=== PATIENT | male | born 1950 | race Caucasian/White ===

== ENCOUNTER 2019-12-28 09:18 | Outpatient (REF) | payer MEDICARE, OTHER, SELFPAY ==
[2019-12-28 10:55] LABS: MANUAL DIFF FLAG NO
[2019-12-28 11:01] LABS: Basophils Absolute Auto 0.1 X10*3/uL (0.0-0.2); Basophils Percent Auto 1.1 % (0-2); Eosinophils Absolute Auto 0.3 X10*3/uL (0.0-0.4); Eosinophils Percent Auto 4.5 % (0-4); Hematocrit 38.8 % (42-52); Hemoglobin 12.7 g/dl (14.0-18.0); Imm Gran Abs Auto 0.02 X10*3/uL (0.00-0.03); Imm Gran Pct Auto 0.3 % (0.0-0.4); Lymphocytes Absolute Auto 1.9 X10*3/uL (1.2-4.9); Lymphocytes Percent Auto 30.9 % (20-40); Mean Corpuscular HGB Conc 32.7 g/dl (31.0-36.0); Mean Corpuscular Hemoglobin 30.3 pg (27.0-33.0); Mean Corpuscular Volume 92.6 fL (80-98); Mean Platelet Volume 10.1 fL (9.4-12.4); Monocytes Absolute Auto 0.7 X10*3/uL (0.1-1.2); Monocytes Percent Auto 10.5 % (2-11); Neutrophils Absolute Auto 3.3 X10*3/uL (2.0-8.3); Neutrophils Percent Auto 52.7 % (45-73); Platelet Count 291 X10*3/uL (160-400); Red Blood Count 4.19 X10*6/uL (4.60-5.80); Red Cell Distribution Width 13.1 % (11.0-16.0); White Blood Count 6.2 X10*3/uL (4.8-10.8)
[2019-12-28 14:39] LABS: Albumin Level 4.3 g/dL (3.5-5.0); Anion Gap 13 (12-20); Blood Urea Nitrogen 16 mg/dL (9-16); Calcium 8.8 mg/dL (8.4-10.2); Carbon Dioxide 30 mmol/L (22-29); Chloride 99 mmol/L (96-108); Estimated Glomerular Filt Rate > 60; Magnesium 1.6 mg/dL (1.6-2.6); Phosphorus 4.2 mg/dL (2.7-4.5); Potassium 4.8 mmol/l (3.3-5.1); Sodium 137 mmol/L (135-145)
[2019-12-28 15:14] LABS: Renal w Reflex Lab Use Only Order verified
== END 2019-12-28 09:19 | disposition home or self-care (01) ==
LOC: HO.10HDL 09:18
PROVIDERS: Visit Provider Internal Medicine Nephrology
DX: I10 Essential (primary) hypertension (principal); E87.1 Hypo-osmolality and hyponatremia
CPT/HCPCS: 36415; 80051; 82040; 82310; 82565; 83735; 84100; 84520; 85025

== ENCOUNTER 2019-12-30 15:31 | Outpatient (REF) | payer MEDICARE, OTHER, SELFPAY | END 2019-12-30 15:32 | disposition home or self-care (01) | LOC: HO.LAB 15:31 | PROVIDERS: PCP Internal Medicine; Visit Provider Internal Medicine Nephrology | DX: I10 Essential (primary) hypertension (principal); E87.1 Hypo-osmolality and hyponatremia | CPT/HCPCS: 82533 ==

== ENCOUNTER → 2020-03-09 07:40 | Outpatient (BNVA) | payer MEDICARE, OTHER, SELFPAY | PROVIDERS: PCP Internal Medicine; Referring Provider Internal Medicine; Visit Provider Nurse Practitioner Gerontology | DX: Z13.89 Encounter for screening for other disorder (principal) | CPT/HCPCS: 99212 ==

== ENCOUNTER 2020-05-23 06:07 | Outpatient (REF) | payer MEDICARE, OTHER, SELFPAY ==
[2020-05-23 07:27] LABS: Estimated Average Glucose 140 mg/dL; Hemoglobin A1c % 6.5 %
[2020-05-23 07:28] LABS: Creatinine Urine 197.57 mg/dL
[2020-05-23 07:29] LABS: Alanine Aminotransferase 11 U/L (0-40); Albumin Level 4.3 g/dL (3.5-5.0); Alkaline Phosphatase 51 U/L (39-117); Anion Gap 13 (12-20); Aspartate Amino Transferase 21 U/L (5-37); Bilirubin Total 0.6 mg/dL (0.0-1.0); Blood Urea Nitrogen 18 mg/dL (9-16); Calcium 9.1 mg/dL (8.4-10.2); Carbon Dioxide 29 mmol/L (22-29); Chloride 100 mmol/L (96-108); Cholesterol 211 mg/dL; Estimated Glomerular Filt Rate > 60; Glucose Fasting 132 mg/dL (60-99); HDL Cholesterol 39 mg/dL; LDL Cholesterol Calculated 149 mg/dl; Potassium 4.4 mmol/L (3.3-5.1); Sodium 138 mmol/L (135-145); Total Protein 7.2 g/dL (6.5-8.0); Triglycerides 119 mg/dL
[2020-05-23 08:14] LABS: Vitamin B12 576 pg/mL (200-900)
[2020-05-24 08:41] LABS: LDL Cholesterol Direct 156 mg/dL (<100)
[2020-05-27 14:47] LABS: Fructosamine 300 umol/L (205-285)
== END 2020-05-23 06:08 | disposition home or self-care (01) ==
LOC: HO.LAB 06:07
PROVIDERS: PCP Internal Medicine; Visit Provider Nurse Practitioner Gerontology
DX: E11.42 Type 2 diabetes mellitus with diabetic polyneuropathy (principal); E11.22 Type 2 diabetes mellitus with diabetic chronic kidney disease
CPT/HCPCS: 36415; 80053; 80061; 82043; 82607; 82985; 83036; 83721

== ENCOUNTER 2020-06-01 08:56 | Outpatient (REF) | payer MEDICARE, OTHER, SELFPAY ==
--- NOTE | 2020-06-01 13:17 | MHC.AU.MED ---
Medical Clearance for Hearing Instrumentation Date: 06/01/20 Patient Name: Maximus Vu Date of : 1950 Primary Care Provider: Referring Provider: Dea Simpson MD We have seen your patient on 06/01/20 and have determined that they are a candidate for amplification (See accompanying report). Specifically, they would benefit from: Hearing aid use in both ears There is a statute that addresses Medical Evaluation Requirements prior to fitting a patient with a hearing aid. According to [place] statute 265 CMR:6.03(1), (a) General. Except as provided in 265 CMR 6.03(1)(b), a enterprise analyst shall not sell a hearing aid unless the prospective user has presented to the enterprise analyst a written statement signed by a licensed physician that states that the patient's hearing loss has been medically evaluated and the patient may be considered a candidate for a hearing aid. The medical evaluation must have taken place within the preceding six months. Please note: Due to the [place] Statute referenced above, we cannot accept a signature other than that of a licensed physician. CHEMICAL ENGINEERING TECHNICIAN and PA signatures cannot be accepted. I am in agreement with the above recommendation. There is no medical contraindication for hearing instrumentation. Physician Signature Date Physician Name (Printed)
--- NOTE | 2020-06-01 13:19 | MHC.AU.P13 ---
Adult Audiological Evaluation Date of Visit: 06/01/20 Hardness Inspector Used: Not Applicable Reason for Appointment: Audiologic evaluation due to increasing hearing difficulties. Maximus notes he is asking others to repeat speech more often. 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 Absent 6095-5197 Hz Analysis: Present emissions suggest normal cochlear function Reduced/Absent emissions suggest cochlear dysfunction Left Ear Results: Present 1600 Hz. Absent 5939-7335 Hz Analysis: Present emissions suggest normal cochlear function Reduced/Absent emissions suggest cochlear dysfunction Hearing Evaluation: Transducer(s) Used: Insert Earphones Bone Conduction Method: Conventional Audiometry Stimuli Used: Pure Tones Right Ear: Description of Hearing: Normal hearing thresholds 250-1000 Hz dropping to a severe high frequency sensorineural hearing loss. Left Ear: Description of Hearing: Normal hearing thresholds 250-1500 Hz dropping to a severe sensorineural hearing loss in the high frequencies. Speech Recognition Threshold (SRT): Method Used: Monitored Live Voice Stimuli Used: Spondee Words Right Ear: 20 dB HL Left Ear: 20 dB HL Word Discrimination: Method: Recorded Lists Word Lists Used: NU-6 Right Ear: 88% at 60 dB HL Left Ear: 96% at 60 dB HL QuickSIN: Binaural unaided Quick SIN Test: 2 dB SNR Loss. This score falls within the normal range suggesting Maximus does not experience any more difficulty understanding speech with increasing levels of background noise in this controlled test environment. Recommendations: Audiological re-evaluation in one year. Trial with amplification is recommended. Medical clearance from a physician is required before fitting. Hearing protection should be used when around loud noise. - A Hearing Aid Evaluation has been scheduled for 06/13/2020 to discuss trial period with amplification. - Discussed and provided a handout regarding communication strategies to use to improve speech understanding. Diagnosis: Primary Diagnosis: H90.3 Bilateral Sensorineural Hearing Loss Secondary Diagnosis: H93.13 Tinnitus, Bilateral Services Performed: Comprehensive Audiological Evaluation (CPT 93880) Diagnostic Otoacoustic Emissions (CPT 46643, 26+TC) Tympanometry (CPT 30349) Signature: Provider: Dank Ferguson, CCC-A
== END 2020-06-01 08:57 | disposition home or self-care (01) ==
LOC: HO.SH 08:56
PROVIDERS: Internal Medicine; Visit Provider Internal Medicine
DX: H90.3 Sensorineural hearing loss, bilateral (principal); H93.13 Tinnitus, bilateral
CPT/HCPCS: 92557; 92567; 92588

== ENCOUNTER → 2020-06-08 10:41 | Outpatient (BNV) | payer MEDICARE, OTHER, SELFPAY | PROVIDERS: PCP Internal Medicine; Visit Provider Internal Medicine | DX: D64.9 Anemia, unspecified (principal) | CPT/HCPCS: 99203; 99213; 99214; G2211 ==

== ENCOUNTER 2020-06-13 12:39 | Outpatient (REF) | payer SELFPAY | END 2020-06-13 12:40 | disposition home or self-care (01) | LOC: HO.HAP 12:39 | PROVIDERS: Visit Provider Internal Medicine | DX: Z13.89 Encounter for screening for other disorder (principal) ==

== ENCOUNTER 2020-09-30 08:29 | Outpatient (REF) | payer MEDICARE, OTHER, SELFPAY ==
[2020-09-30 10:16] LABS: MANUAL DIFF FLAG NO
[2020-09-30 10:27] LABS: Basophils Absolute Auto 0.1 X10*3/uL (0.0-0.2); Basophils Percent Auto 0.7 % (0-2); Eosinophils Absolute Auto 0.3 X10*3/uL (0.0-0.4); Hematocrit 39.8 % (42-52); Hemoglobin 13.2 g/dl (14.0-18.0); Imm Gran Abs Auto 0.02 X10*3/uL (0.00-0.03); Imm Gran Pct Auto 0.3 % (0.0-0.4); Immature Retic Fraction 8.7 % (2.3-13.4); Lymphocytes Percent Auto 28.8 % (20-40); Mean Corpuscular HGB Conc 33.2 g/dl (31.0-36.0); Mean Corpuscular Hemoglobin 31.4 pg (27.0-33.0); Mean Corpuscular Volume 94.5 fL (80-98); Monocytes Absolute Auto 0.6 X10*3/uL (0.1-1.2); Neutrophils Absolute Auto 3.9 X10*3/uL (2.0-8.3); Neutrophils Percent Auto 57.2 % (45-73); Platelet Count 284 X10*3/uL (160-400); Red Blood Count 4.21 X10*6/uL (4.60-5.80); Red Cell Distribution Width 13.2 % (11.0-16.0); Retic HGB Equivalent 36.9 pg (30.0-35.0); Reticulocyte Percent 1.9 % (0.5-1.8); Reticulocytes Absolute 0.082 X10*6/uL (0.026-0.095); White Blood Count 6.8 X10*3/uL (4.8-10.8)
[2020-09-30 10:46] LABS: Estimated Average Glucose 160 mg/dL; Hemoglobin A1c % 7.2 %
[2020-09-30 10:53] LABS: Alanine Aminotransferase 14 U/L (0-40); Albumin Level 4.3 g/dL (3.5-5.0); Alkaline Phosphatase 60 U/L (39-117); Anion Gap 14 (12-20); Aspartate Amino Transferase 23 U/L (5-37); Bilirubin Total 0.6 mg/dL (0.0-1.0); Blood Urea Nitrogen 18 mg/dL (9-16); Calcium 9.2 mg/dL (8.4-10.2); Carbon Dioxide 28 mmol/L (22-29); Chloride 101 mmol/L (96-108); Cholesterol 102 mg/dL; Estimated Glomerular Filt Rate > 60; Glucose Random 120 mg/dL (60-115); HDL Cholesterol 36 mg/dL; Iron 125 mcg/dL (45-160); LDL Cholesterol Calculated 50 mg/dl; Percent Iron Saturation 38 % (15-50); Potassium 4.5 mmol/L (3.3-5.1); Sodium 138 mmol/L (135-145); Total Iron Binding Capacity 329 mcg/dL (228-428); Triglycerides 80 mg/dL; Unsaturated Iron Binding 204 ug/dL
[2020-09-30 10:59] LABS: Ferritin 42 ng/mL (20-250); Free T4 (Free Thyroxine) 1.02 ng/dL (0.71-1.85)
[2020-09-30 12:26] LABS: Folate > 20.0 ng/mL (> or = 4.0); Vitamin B12 584 pg/mL (200-900)
== END 2020-09-30 08:30 | disposition home or self-care (01) ==
LOC: HO.10HDL 08:29
PROVIDERS: PCP Internal Medicine; Visit Provider Nurse Practitioner Gerontology
DX: E11.65 Type 2 diabetes mellitus with hyperglycemia (principal); E11.42 Type 2 diabetes mellitus with diabetic polyneuropathy; H91.90 Unspecified hearing loss, unspecified ear; E78.00 Pure hypercholesterolemia, unspecified; E03.9 Hypothyroidism, unspecified; I10 Essential (primary) hypertension; E78.5 Hyperlipidemia, unspecified; Z79.899 Other long term (current) drug therapy; Z79.82 Long term (current) use of aspirin; Z87.891 Personal history of nicotine dependence
CPT/HCPCS: 36415; 80053; 80061; 82607; 82728; 82746; 82947; 83036; 83540; 84439; 84443; 85025; 85045

== ENCOUNTER 2020-10-11 12:40 | Outpatient (REF) | payer MEDICARE, OTHER, SELFPAY | END 2020-10-11 12:41 | disposition home or self-care (01) | LOC: HO.LAB 12:40 | PROVIDERS: Visit Provider Nurse Practitioner Family | DX: Z20.822 Contact with and (suspected) exposure to COVID-19 (principal); R06.02 Shortness of breath | CPT/HCPCS: U0003; U0005 ==

== ENCOUNTER 2020-10-11 12:50 | Outpatient (REF) | payer MEDICARE, OTHER, SELFPAY ==
--- NOTE | ~2020-10-11 | XR_ITS ---
EXAMINATION: XR CHEST CLINICAL INFORMATION: R06.02 - Shortness of breath COMPARISON: Chest radiographs 08/20/2016, 05/20/2013 TECHNIQUE: 2 views of the chest were obtained. FINDINGS: There is fine linear scar left lateral base similar to prior studies. The lungs otherwise clear. The vascularity is normal. There is no vascular congestion, airspace consolidation, hyperinflation, or effusion. The costophrenic sulci are well-defined. The heart is normal in size. The hilar and mediastinal contours are normal. No visible acute bony abnormality. XR/XR chest 2V IMPRESSION: Unremarkable examination.
== END 2020-10-11 12:51 | disposition home or self-care (01) ==
LOC: HO.HMGCX 12:50
PROVIDERS: PCP Internal Medicine; Visit Provider Nurse Practitioner Family
DX: R06.02 Shortness of breath (principal)
CPT/HCPCS: 71046

== ENCOUNTER 2020-11-30 06:11 | Outpatient (REF) | payer MEDICARE, OTHER, SELFPAY ==
[2020-11-30 07:54] LABS: Cholesterol 108 mg/dL; HDL Cholesterol 35 mg/dL; LDL Cholesterol Calculated 54 mg/dl; Triglycerides 97 mg/dL
[2020-11-30 08:08] LABS: Free T4 (Free Thyroxine) 1.01 ng/dL (0.71-1.85); Thyroid Stimulating Hormone 6.93 uIU/mL (0.32-4.0)
== END 2020-11-30 06:12 | disposition home or self-care (01) ==
LOC: HO.LAB 06:11
PROVIDERS: PCP Internal Medicine; Visit Provider Internal Medicine
DX: E03.9 Hypothyroidism, unspecified (principal); E11.42 Type 2 diabetes mellitus with diabetic polyneuropathy
CPT/HCPCS: 36415; 80061; 84439; 84443

== ENCOUNTER → 2020-12-13 14:06 | Outpatient (BNVA) | payer MEDICARE, OTHER, SELFPAY | PROVIDERS: PCP Internal Medicine; Referring Provider Internal Medicine; Visit Provider Nurse Practitioner Family | DX: E11.65 Type 2 diabetes mellitus with hyperglycemia (principal); E11.42 Type 2 diabetes mellitus with diabetic polyneuropathy; D50.9 Iron deficiency anemia, unspecified; I10 Essential (primary) hypertension; E78.00 Pure hypercholesterolemia, unspecified; E78.5 Hyperlipidemia, unspecified; E03.9 Hypothyroidism, unspecified; E51.9 Thiamine deficiency, unspecified; Z88.6 Allergy status to analgesic agent; Z12.11 Encounter for screening for malignant neoplasm of colon | CPT/HCPCS: 99202 ==

== ENCOUNTER 2021-01-30 06:06 | Outpatient (REF) | payer MEDICARE, OTHER, SELFPAY ==
[2021-01-30 07:58] LABS: Free T4 (Free Thyroxine) 1.05 ng/dL (0.71-1.85); Thyroid Stimulating Hormone 15.94 uIU/mL (0.32-4.0)
== END 2021-01-30 06:07 | disposition home or self-care (01) ==
LOC: HO.LAB 06:06
PROVIDERS: PCP Internal Medicine; Visit Provider Internal Medicine
DX: E03.9 Hypothyroidism, unspecified (principal)
CPT/HCPCS: 36415; 84439; 84443

== ENCOUNTER 2021-03-01 07:22 | Day surgery (SDC) | payer MEDICARE, OTHER, SELFPAY ==
--- NOTE | 2021-02-27 14:20 | HO.ANESPROP2 ---
Documented by User: Gretchen Pompa NP 02/27/21 14:30 HPI - Anesthesia Eval Consult details Narrative: 70yo M for Upper Endoscopy and Colonoscopy [facility] Active Problems Active Problems: All Active Problems (Updated 01/12/21 @ 14:51 by Mahsa Morocho, MARY ANN) Vitamin B12 deficiency (Acute) Hearing loss (Acute) Anemia (Chronic) Colon cancer screening (Acute) Shortness of breath (Acute) Generalized anxiety disorder (Acute) Hyperlipidemia LDL goal <100 (Acute) Hypothyroidism (Acute) Hypercholesterolemia (Acute) Type 2 diabetes mellitus with hyperglycemia (Acute) Type 2 diabetes mellitus with diabetic polyneuropathy (Acute) Essential hypertension (Acute) Past Medical History Medical History Basal cell carcinoma (BCC) Chronic anemia Essential hypertension History of alcohol abuse History of depression Hx of sigmoidoscopy Hypercholesterolemia Hyperlipidemia LDL goal <100 Hypothyroidism On beta zoe at home Type 2 diabetes mellitus with diabetic polyneuropathy Type 2 diabetes mellitus with hyperglycemia Vitamin B1 deficiency Family History Family History Father Lung cancer Bladder cancer Throat cancer Diabetes Mother No problems noted. Sister Diabetes Surgical History Surgical History H/O repair of rotator cuff History of total right knee replacement Hx of Achilles tendon repair Hx of carpal tunnel repair Hx of colonoscopy Hx of tonsillectomy Lipoma of right axilla Social History Social History Household Members: Spouse Housing: House Alcohol intake: former Patient Tobacco Use Status: Former Tobacco user Tobacco use type: Cigarette Cigarette Packs Per Day: 2 e-Cigarette/Vaping Use: Never Used Second Hand Smoke Exposure: No Advance Directives: No Advance Directives Information Provided: Yes service: No Current occupational status: retired Current occupational exposures/hazards: No Meds Allergies Allergy/AdvReac Type Severity Reaction Status Date / Time oxycodone [OXYCODONE] Allergy Unknown ITCHING Verified 01/31/21 12:08 Home Medications Medication Instructions Recorded Confirmed Last Taken Type aspirin 81 mg tablet,delayed 81 mg PO DAILY 05/25/20 01/12/21 Unknown History release (Adult Low Dose Aspirin) cholecalciferol (vitamin D3) 50 50 mcg PO DAILY 05/25/20 01/12/21 Unknown History mcg (2,000 unit) tablet multivitamin 1 tab PO DAILY 05/25/20 01/12/21 Unknown History Exam Exam Date and Time: February 27, 2021 1420 Pertinent Lab Results Pertinent Lab Results: Laboratory Tests 09/30/20 09/30/20 09:27 09:27 WBC 6.8 Hgb 13.2 L Hct 39.8 L Plt Count 284 Sodium 138 Potassium 4.5 Chloride 101 Carbon Dioxide 28 BUN 18 H Creatinine 0.92 Assessment and Plan Assessment Anesthesia Assessment: Chart Reviewed Documented by User: Yissel Gastelum MD 03/01/21 07:52 PMFSH Past Medical History Medical History Basal cell carcinoma (BCC) Chronic anemia Essential hypertension History of alcohol abuse History of depression Hx of sigmoidoscopy Hypercholesterolemia Hyperlipidemia LDL goal <100 Hypothyroidism On beta zoe at home Type 2 diabetes mellitus with diabetic polyneuropathy Type 2 diabetes mellitus with hyperglycemia Vitamin B1 deficiency Family History Family History Father Lung cancer Bladder cancer Throat cancer Diabetes Mother No problems noted. Sister Diabetes Surgical History Surgical History H/O repair of rotator cuff History of total right knee replacement Hx of Achilles tendon repair Hx of carpal tunnel repair Hx of colonoscopy Hx of tonsillectomy Lipoma of right axilla History of Problems with Anesthesia: No Social History Social History Household Members: Spouse Housing: House Alcohol intake: former Patient Tobacco Use Status: Former Tobacco user Tobacco use type: Cigarette Cigarette Packs Per Day: 2 e-Cigarette/Vaping Use: Never Used Second Hand Smoke Exposure: No Advance Directives: No Advance Directives Information Provided: Yes service: No Current occupational status: retired Current occupational exposures/hazards: No Meds Allergies Allergy/AdvReac Type Severity Reaction Status Date / Time oxycodone [OXYCODONE] Allergy Unknown ITCHING Verified 01/31/21 12:08 Home Medications Medication Instructions Recorded Confirmed Last Taken Type aspirin 81 mg tablet,delayed 81 mg PO DAILY 05/25/20 01/12/21 Unknown History release (Adult Low Dose Aspirin) cholecalciferol (vitamin D3) 50 50 mcg PO DAILY 05/25/20 01/12/21 Unknown History mcg (2,000 unit) tablet multivitamin 1 tab PO DAILY 05/25/20 01/12/21 Unknown History Exam Airway Mallampati Class: II (Edentulous) TM Dist: >3cm Neck ROM: Full Denture: Upper and Lower Loose/Missing/Broken Teeth: Yes, Upper and Lower Heart: RRR Lungs: CTA Assessment and Plan Assessment Anesthesia Assessment: Anesthesia Plan Discussed Final Anesthetic Review History of Problems with Anesthesia: No NPO: Yes ASA Class: II and III Final Preanesthetic Review: Meds/Allgs Chart Reviewed, Consent Obtained/Reviewed and Anes Risks/Benef Reviewed Patient Risk: Low Procedure Risk: Intermediate Anesthetic Plan Anesthetic Plan: MAC: Disposition: Standard PACU
[2021-03-01 07:33] VITALS: BP 155/75; PULSE 62; RESP 16; TEMP 36.3; O2SAT 97; BMI 27.1
[2021-03-01 07:58] LABS: Glucose, Whole Blood 139 mg/dL (60-115)
[2021-03-01] MEDS: Lactated Ringers 1,000 ML 100 ML IVCONT (08:32)
--- NOTE | 2021-03-01 08:40 | MHC.SHP ---
Pre-Procedural Eval Section A Date of Service: 03/01/21 Section B Chief Complaint: anemia,screening Relevant Family History (Specify if Yes): No Relevant Social History: None Present Medications: see Short Stay Collaborative assessment Medical History: Significant History (Basal cell carcinoma (BCC) Chronic anemia Essential hypertension History of alcohol abuse History of depression Hx of sigmoidoscopy Hypercholesterolemia Hyperlipidemia LDL goal <100 Hypothyroidism On beta zoe at home Type 2 diabetes mellitus with diabetic polyneuropathy Type 2 diabetes mellitus ) History of Previous Operations: Relevant previous surgery/procedure and date(s) (H/O repair of rotator cuff History of total right knee replacement Hx of Achilles tendon repair Hx of carpal tunnel repair Hx of colonoscopy Hx of tonsillectomy Lipoma of right axilla) Allergies: Allergies Allergy/AdvReac Type Severity Reaction Status Date / Time oxycodone [OXYCODONE] Allergy Unknown ITCHING Verified 01/31/21 12:08 Review of Systems Sugical H&P ROS: Negative: Constitution, Cardiovascular, Respiratory, Neurological, Psychiatric, Hem-Onc, Allergic/Immunologic, Gastrointestinal, Genitourinary, Musculoskeletal, Integumentary, Endocrine and Eyes/Ears/Nose/Throat Exam Surgical H&P Exam: Normal: HEENT, Normal: Heart, Normal: Lungs, Normal: Extremities, Normal: Abdomen, Normal: Skin and Normal: Neurological Plan Diagnosis/Plan: Unchanged I have reviewed the history and physical and performed a pertinent physical examination on my patient. No changes have occurred unless specified.
--- NOTE | 2021-03-01 08:44 | P.BOP_ITS ---
Brief Operative Note Date of Service: 03/01/21 Pre-op diagnosis: anemia Post-op diagnosis: same Procedure: see op note Surgeon: Duane Dave MD Anesthesia: MAC Was an Elementary Classroom Teacher used for this Procedure?: No Estimated blood loss (mL): 0 Condition: stable Disposition: PACU
--- NOTE | 2021-03-01 08:44 | P.OP_ITS ---
Operative Note Operative Note Date of Service: 03/01/21 Narrative: Operative Information Procedure Description: EGD, Colonoscopy FLEXIBLE TRANSORAL UPPER GASTROINTESTINAL ENDOSCOPY AND COLONOSCOPY PROCEDURE NOTE UPPER ENDOSCOPY Consent: Indications for the procedure and potential complications of bleeding, perforation, reaction to medications and missed diagnosis were discussed with the patient and informed consent was obtained. Instrument: Olympus GIF H 190 J mid size upper endoscope Monitoring: Vital signs and clinical assessment, continuous EKG monitoring, Pulse oximetry, Carbon Dioxide monitoring and blood pressure monitoring were done throughout the procedure. Procedure: The patient was placed in the left lateral decubitis position and pre-procedure medications were administered and a bite block was placed. The endoscope was inserted into the mouth and advanced under direct vision to the third part of duodenum. A careful inspection was made as the upper endoscope was withdrawn including a retroflexed examination of the proximal stomach; Findings and interventions are described below. Findings: Larynx:normal Esophagus: GE junction at 42 cm, diaphragm hiatus at 42 cm, normal mucosa Stomach: patchy erythema mucosa with scarring. Biopsies were obtained. Grade 2 flap valve on retroflexed examination of the cardia. Duodenum: Mild bulbar duodenitis, bx taken, also small non bleeding AVM seen. Intervention: Biopsies as noted above COLONOSCOPY Instrument: Olympus variable stiffness pediatric scope 190L Colonoscopy Monitoring: Vital signs and clinical assessment, continuous EKG monitoring, Pulse oximetry, Carbon Dioxide monitoring and blood pressure monitoring were done throughout the procedure. Colon withdrawal time was 14 minutes. Procedure: The patient was placed in the left lateral decubitis position and pre-procedure medications were administered. After a digital rectal examination of the ano-rectum, the video colonoscope was inserted into the rectum and advanced through the colon to the cecum/TI. The colonoscope was slowly withdrawn in a retrograde panoramic fashion and the colon mucosa was carefully examined including a retroflexed view of the rectum. Findings and interventions are described below. Procedure Difficulty:moderate due to looping Findings: Terminal Ileum-normal Cecum:normal Ascending Colon: normal Transverse Colon -normal Descending Colon: 10-12 mm sessile polyp removed with cold snare Sigmoid Colon: patchy diverticulosis Rectum: Retroflexion with small to moderate sized slightly inflammed internal hemorrhoids, grade II Anorectum - internal hemorrhoids at anal verge Colon preparation: Friedheim Bowel Preparation Scale Right colon; 2 (cecal area and proximal area was more 1) Transverse colon: 2 Left colon; 3 (0 = Unprepared colon segment with mucosa not seen due to solid stool that cannot be cleared. 1 = Portion of mucosa of the colon segment seen, but other areas of the colon segment not well seen due to staining, residual stool and/or opaque liquid. 2 = Minor amount of residual staining, small fragments of stool and/or opaque liquid, but mucosa of colon segment seen well. 3 = Entire mucosa of colon segment seen well with no residual staining, small fragments of stool or opaque liquid) Impression and Post Procedure Diagnosis: Endoscopy Findings: gastritis AVM duodenitis Colonoscopy Findings: polyp internal hemorrhoids diverticular disease Plan: Await Pathology results Repeat Colonoscopy in 3 years due to polyp and fair prep on right side or earlier if clinically indicated High fiber diet leaflet avoid straining at stool, epsom salts and sitz bath, anusol supps or cream o/p capsule endoscopy for completeness if he agrees Above findings were reviewed with the patient and relevant handouts were provided if indicated.
[2021-03-01 09:35] VITALS: BP 110/74; PULSE 59; RESP 18; TEMP 36.2; O2SAT 100
[2021-03-01 09:50] VITALS: BP 132/72; PULSE 62; RESP 16; TEMP 36.2; O2SAT 95
== END 2021-03-01 10:41 | disposition home or self-care (01) ==
PROVIDERS: PCP Internal Medicine; Visit Provider Internal Medicine Gastroenterology
PROC: (CPT 45385; principal; 2021-03-01 08:30)
DX: Z12.11 Encounter for screening for malignant neoplasm of colon (principal); D12.4 Benign neoplasm of descending colon; K57.30 Diverticulosis of large intestine without perforation or abscess without bleeding; K64.1 Second degree hemorrhoids; D50.9 Iron deficiency anemia, unspecified; K29.50 Unspecified chronic gastritis without bleeding; B96.81 Helicobacter pylori [H. pylori] as the cause of diseases classified elsewhere; K29.80 Duodenitis without bleeding; K31.819 Angiodysplasia of stomach and duodenum without bleeding; K44.9 Diaphragmatic hernia without obstruction or gangrene; E03.9 Hypothyroidism, unspecified; E78.00 Pure hypercholesterolemia, unspecified; I10 Essential (primary) hypertension; E11.42 Type 2 diabetes mellitus with diabetic polyneuropathy; E11.65 Type 2 diabetes mellitus with hyperglycemia; Z79.84 Long term (current) use of oral hypoglycemic drugs; Z79.82 Long term (current) use of aspirin; Z79.899 Other long term (current) drug therapy; Z88.8 Allergy status to other drugs, medicaments and biological substances; Z87.891 Personal history of nicotine dependence
CPT/HCPCS: 45385; 43239; 82947; 88305; 88342

== ENCOUNTER 2021-05-19 09:35 | Outpatient (REF) | payer MEDICARE, OTHER, SELFPAY ==
[2021-05-19 11:26] LABS: Free T4 (Free Thyroxine) 1.66 ng/dL (0.71-1.85); Thyroid Stimulating Hormone 0.06 uIU/mL (0.32-4.0)
== END 2021-05-19 09:36 | disposition home or self-care (01) ==
LOC: HO.10HDL 09:35
PROVIDERS: Visit Provider Internal Medicine
DX: E03.9 Hypothyroidism, unspecified (principal)
CPT/HCPCS: 36415; 84439; 84443

== ENCOUNTER → 2021-11-27 08:24 | Outpatient (BNVA) | payer MEDICARE, OTHER, SELFPAY | PROVIDERS: PCP Internal Medicine; Referring Provider Internal Medicine; Visit Provider Nurse Practitioner Family | DX: R13.12 Dysphagia, oropharyngeal phase (principal); K21.9 Gastro-esophageal reflux disease without esophagitis | CPT/HCPCS: 99212 ==

== ENCOUNTER 2021-11-29 15:33 | Outpatient (REF) | payer MEDICARE, OTHER, SELFPAY ==
[2021-11-30 15:57] LABS: H Pylori Breath Test Negative (Negative)
== END 2021-11-29 15:34 | disposition home or self-care (01) ==
LOC: HO.LNP 15:33
PROVIDERS: Visit Provider Nurse Practitioner Family
DX: Z11.2 Encounter for screening for other bacterial diseases (principal)
CPT/HCPCS: 83013

== ENCOUNTER 2022-01-10 14:29 | Outpatient (REF) | payer MEDICARE, OTHER, SELFPAY ==
--- NOTE | ~2022-01-10 | FL_ITS ---
EXAMINATION: FL MODIFIED BARIUM SWALLOW CLINICAL INFORMATION: R13.10 - Dysphagia, unspecified COMPARISON: Chest radiographs 10/11/2020 TECHNIQUE: Modified barium swallow examination is performed with imaging in the lateral view and the presence of the speech pathologist using a variety of barium consistencies as well as a barium pill. The exam is performed with fluoroscopic evaluation, videofluoroscopy, and some fluoroscopic spot views. Fluoroscopy time: 1.3 minutes DAP: 1.264 Gycm2 Fluoroscopic spot images: 2 FINDINGS: There is normal swallowing with good oral control and prompt transit from mouth to cervical thoracic junction without nasopharyngeal penetration or aspiration. No laryngeal penetration. Barium pill rapidly passed from mouth to stomach. See speech pathologist report for further assessment and recommendation. FL/FL barium swallow modified IMPRESSION: -Normal study. -See speech pathologist report for further assessment and recommendation.
--- NOTE | 2022-01-12 11:38 | MHC.SL.IMP ---
Date of Plan of Treatment: 01/10/22 Onset of Symptoms/Illness: 08/10/21 Date Treatment Started: 01/10/22 Admitting Diagnosis: Medical History Basal cell carcinoma (BCC) Chronic anemia Essential hypertension History of alcohol abuse History of depression HTN (hypertension) Hx of sigmoidoscopy Hypercholesterolemia Hyperlipidemia LDL goal <100 Hypothyroidism On beta zoe at home Type 2 diabetes mellitus with diabetic polyneuropathy Type 2 diabetes mellitus with hyperglycemia Vitamin B1 deficiency Surgical History H/O repair of rotator cuff History of total right knee replacement Hx of Achilles tendon repair Hx of carpal tunnel repair Hx of colonoscopy Hx of tonsillectomy Lipoma of right axilla Status post right foot surgery Primary Speech & Language Diagnosis: R13.10 Dysphagia Reason for Today's Visit: 54709 Modified Barium Swallow Study Pre-evaluation Dietary Consistencies: Regular Pre-evaluation Liquid Consistency: Thin Pre-evaluation Medication Administration: Whole with Liquid Medical History: Modified Barium Swallow Study Fluoroscopic Evaluation of Swallowing Function CPT Code 40647 Evaluation Year: 2021 Reason for Study: Patient reports globus sensation. Referring Physician: Kathia VELAZQUEZ- Evaluating Clinician: Leatha Pan MA, CCC-[place] PHOTOGRAPHER Study Number: 1 Patient Name: Maximus Vu Status: Outpatient, Ambulatory Age: 71 Gender: Male MEDICAL HISTORY: Year of Onset or Diagnosis: 2021 Medical History Basal cell carcinoma (BCC) Chronic anemia Essential hypertension History of alcohol abuse History of depression HTN (hypertension) Hx of sigmoidoscopy Hypercholesterolemia Hyperlipidemia LDL goal <100 Hypothyroidism On beta zoe at home Type 2 diabetes mellitus with diabetic polyneuropathy Type 2 diabetes mellitus with hyperglycemia Vitamin B1 deficiency Surgical History H/O repair of rotator cuff History of total right knee replacement Hx of Achilles tendon repair Hx of carpal tunnel repair Hx of colonoscopy Hx of tonsillectomy Lipoma of right axilla Status post right foot surgery Current (pre-evaluation) Intake/Diet: Route: PO Diet Grade: Regular Liquid Consistencies: Thin Pre-Study Functional Oral Intake Scale (FOIS): 7- Total oral intake with no restrictions Pain: None reported at time of study SUBJECTIVE: Pt is a 71 year old male referred for a modified barium swallow study by Kathia BANUELOS of [facility]. Pt reported having episodes of difficulty swallowing since this past summer. He reported two instances, once when he was eating pizza and the other when he was eating hard boiled eggs, feeling like ?it was stuck? and he ?couldn?t swallow.? Pt reported he had to walk away from the table, take ?multiple short swallows,? and in response, it seemed to pass. Pt reported that this does not happen too often anymore. Pt denies odynophagia and denies coughing or choking when swallowing. Pt stated he does not alter his diet in any way at this time. Oral Motor Exam Facial Symmetry: Symmetrical Mouth Occlusion: Normal Oral-Facial Teeth Characteristics: Dentures Oral-Facial Lip Pucker Description: Normal Oral-Facial Smile (Lips) Description: Normal Oral-Facial Puff Cheeks Description: Normal Tongue Size: Normal Tongue Excursion Description: Deviates to Left Tongue Range of Movement Description: Reduced Tongue Speed of Movement Description: Normal Tongue Strength of Movement (against opposing pressure): Normal Tongue Movement Characteristics: Normal/Absent Is patient able to manage secretions?: Yes Food and Liquid Trials: Oral Impairment: Lip Closure: Did not test Oral Impairment: Tongue Control During Bolus Hold: 2=Posterior escape of less than half of bolus Oral Impairment: Bolus Preparation/Mastication: 0=Timely and efficient chewing and mashing Oral Impairment: Bolus Transport/Lingual Motion: 2=Slowed tongue motion Oral Impairment: Oral Residue: 1=Trace residue lining oral structures Oral Impairment:Initiation of Pharyngeal Swallow: 2=Bolus head at posterior laryngeal surface of epiglottis Pharyngeal Impairment: Soft Palate Elevation: 0=No bolus between soft palate (SP)/pharyngeal wall (PW) Pharyngeal Impairment: Laryngeal Elevation: 0=Complete superior movement of thyroid cartilage (see description) Pharyngeal Impairment: Anterior Hyoid Excursion: 0=Complete anterior movement Pharyngeal Impairment: Epiglottic Movement: 0=Complete inversion Pharyngeal Impairment: Laryngeal Vestibular Closure:: 0=Complete: no air/contrast in laryngeal vestibule Pharyngeal Impairment: Pharyngeal Stripping Wave: 0=Present: complete Pharyngeal Impairment: Pharyngeal Contraction: Did not test Pharyngeal Impairment: Pharyngoesophageal Segment Openin=Complete distension and complete duration: no obstruction of flow Pharyngeal Impairment: Tongue Base (TB) Retraction: 2=Narrow column of contrast/air between TB and posterior PW Pharyngeal Impairment: Pharyngeal Residue: 1=Trace residue within or on pharyngeal structures Pharyngeal Impairment: Esophageal Clearance Upright Position: 0=Complete clearance: esophageal coating Impressions and Recommendations Clinical Observations: OBJECTIVE: Time-out: performed at 02:45 Evaluation Start: 02:30; Stop: 2:33 Patient Positioning: Standing Viewing Planes: LATERAL ONLY Contrast: MBSImP? Standardized Protocol using commercially prepared, standardized Barium viscosities, including: Varibar? THIN LIQUID (40% w/v, <15 cps) , 1/2 Shortbread Cookie (1 x1 x.25 ) MBSImP ID: [id number] MBSImP Results: Lip closure for intraoral bolus containment could not be assessed due to logistical reasons not related to physiologic impairment. Tongue control during bolus hold resulted in posterior escape of less than half of the bolus. Bolus preparation and mastication resulted in timely and efficient chewing and mashing. Bolus transport/lingual motion was with slowed tongue motion. Oral residue was a trace, lining oral structures. Initiation of the pharyngeal swallow occurred as the bolus head was at the posterior laryngeal surface of the epiglottis. Soft palate elevation resulted in no bolus between the soft palate and the pharyngeal wall. Laryngeal elevation demonstrated complete superior movement of the thyroid cartilage with complete approximation of the arytenoids to the epiglottic petiole. Anterior hyoid excursion demonstrated complete anterior movement. Epiglottic movement resulted in complete inversion. Laryngeal vestibular closure was complete, as indicated by no air or contrast within the laryngeal vestibule at the height of the swallow. Pharyngeal stripping wave was present and complete. Pharyngeal contraction could not be determined due to logistical reasons not related to physiologic impairment. Pharyngoesophageal segment opening was completely distended for complete duration with no obstruction of bolus flow. Tongue base retraction allowed a narrow column of contrast or air between the retracted tongue base and the posterior pharyngeal wall. Pharyngeal residue was a trace within or on pharyngeal structures. Esophageal clearance in the upright position was complete, with only a coating of contrast, if any. Oral Impairment Score: 6 (absence of score, component 1) Pharyngeal Impairment Score: 2 (absence of score, component 13) Esophageal Impairment Score: 0 Laryngeal Penetration and Aspiration: Neither penetration nor aspiration was observed in today's study with Cookie, Thin. ASSESSMENT: Clinician Assessment: This exam was conducted by a multidisciplinary team, which included a speech pathologist, radiologist, and biomedical engineering technician. Pt was standing for lateral view only. Pt trialed the following liquid and solid consistencies: thin liquid barium, pureed solid (mixture applesauce with barium paste), ground solid (chicken salad with barium paste), regular solid (Anabella Doone cookie coated with barium paste), and barium pill tablet. There was premature posterior escape of trace amount of liquid prior to productive tongue movement, but with no resultant penetration or aspiration before the swallow. Mastication was timely and efficient. Posterior lingual movement was mildly slowed for transport of bolus. There was trace lingual residue which subsequently cleared. Pharyngeal swallow trigger initiated as bolus head reached the posterior laryngeal surface of the epiglottis. There was no nasopharyngeal reflux. Laryngeal elevation was complete with complete anterior hyoid excursion, complete epiglottic inversion, and complete laryngeal vestibular closure. No evidence of aspiration or penetration during this exam. Trace residue on the base of tongue and in the valleculae subsequently cleared. There was no obstruction of flow through the pharyngoesophageal segment opening. Barium pill passed from mouth to stomach with no hang up. Liquid Intake Recommendation: Thin Liquid Intake Strategies: Small Sips Dietary Recommendations: Regular Medication Administration: Whole with Liquid Please contact the pharmacy regarding appropriate crushable or liquid drug formulations that are available whenever modified delivery is recommended. Compensatory Strategies Recommended: Sitting Upright (90 deg), Double Swallow, Small Bites and Sips, Alternate Liquids/Solids, Rate of Ingestion Change Supervision during eating and or drinking: None Needed Recommendation for Speech Therapy: NA:Typical Evaluation PLAN: Intake Recommendations: Route: PO Diet Grade: Regular Liquid Consistencies: Thin Post-Study Functional Oral Intake Scale (FOIS): 7- Total oral intake with no restrictions No evidence of penetration or aspiration with solids and liquids during this exam. Pt demonstrated good clearance of oral and pharyngeal cavities. Further speech intervention for dysphagia is not warranted at this time. Recommend continue workup with G.I. Therapy Recommendations: Therapy will be discontinued Prognosis for Improvement: The prognosis for the patient to meet nutritional needs by mouth is excellent based on degree of impairment. Clinician - Supplemental, Miscellaneous Communication: It is important to note MBSS objective studies are snapshots in time and Patient function might vary with factors such as time of day or concomitant medical conditions. For this reason, the final treatment plan for this patient should rest with their medical care team. Additional recommendations should be considered with the totality of the Patient in mind. Thank for the opportunity to participate in the care of this patient. If you have any questions about the content of this report, please contact the [facility]. Education: Education regarding findings from today's study and plans for therapy were provided to Patient only through Verbal Instruction. Understanding was expressed by the Patient only. Sales Producer Clinician/Clinical Fellow: No Supervisory Statement: N/A Speech Language Pathologist: Leatha Pan M.A., [facility]-[place] PHOTOGRAPHER
== END 2022-01-10 14:30 | disposition home or self-care (01) ==
LOC: HO.XRAY 14:29
PROVIDERS: Visit Provider Nurse Practitioner Family
DX: R13.10 Dysphagia, unspecified (principal)
CPT/HCPCS: 74230; 92611

== ENCOUNTER → 2022-02-20 08:35 | Outpatient (BNVA) | payer MEDICARE, OTHER, SELFPAY | PROVIDERS: PCP Internal Medicine; Visit Provider Nurse Practitioner Family | DX: R13.12 Dysphagia, oropharyngeal phase (principal); Z80.0 Family history of malignant neoplasm of digestive organs | CPT/HCPCS: 99212 ==

== ENCOUNTER 2022-03-09 07:34 | Outpatient (REF) | payer MEDICARE, OTHER, SELFPAY ==
--- NOTE | ~2022-03-09 | CT_ITS ---
EXAMINATION: CT SOFT TISSUE NECK WITH CONTRAST CLINICAL INFORMATION: 71-year-old with dysphagia, unspecified. COMPARISON: None TECHNIQUE: Following the intravenous administration of 60 mL of Omnipaque 350 intravenous contrast, helical imaging was performed in the axial plane with generation of coronal and sagittal reformatted images. This CT examination was performed using dose optimization techniques as appropriate, variously including the following: *Automated exposure control *Adjustment of mA and/or kV according to patient size (this includes techniques or standardized protocols for targeted exams where dose is matched to indication/reason for exam; i.e. extremities or head) *Use of iterative reconstruction technique DLP: 396 mGy-cm FINDINGS: Skull Base: The bony skull base and visualized calvarium appear grossly intact.?Limited assessment of the visualized intracranial and orbital soft tissue structures is unrevealing.?The visualized mastoids, middle ear cavities and sinonasal cavity are clear. Suprahyoid Neck: There is limited evaluation of the nasopharynx due to the posterior prolapse of the soft palate which occludes the inferior portion of the nasopharynx. Within these limitations, the nasopharynx appears slightly bulky but bilaterally symmetric and demonstrates no focal lesion or abnormal enhancement with a normal appearance to the retropharynx. The appraisal analyst and parapharyngeal spaces appear within normal limits and symmetric. The parotid glands are normal in morphology and attenuation. The oropharynx is smoothly contoured. The visualized oral tongue, base of the tongue and floor of the mouth structures are symmetric and intact. The left submandibular gland is atrophic; the right submandibular gland is not visualized. There are postsurgical changes involving the anterior oral cavity adjacent to the superior margin of the anterior mandible. Correlate with dental history. Correlate with clinical history. There is a single mildly enlarged left submandibular space lymph node at level 1B measuring 1.2 cm maximum long axis. There is a tiny, nonpathologic-appearing right submandibular space lymph node. A few small nonenlarged left-sided level 1A lymph nodes are seen and a very small level 1A lymph node on the right. There are nonenlarged, nonpathologic-appearing bilateral level 2A lymph nodes. Infrahyoid Neck: Lingual tonsils, vallecula and epiglottis appear intact. Note that the epiglottis appears tilted in the axial plane but is otherwise normal in thickness and shows no abnormal enhancement. The aryepiglottic folds, preepiglottic and paraglottic fat stripes and true vocal cords appear within normal limits with a normal appearance to the laryngeal cartilages. The thyroid gland is atrophic. No infrahyoid lymphadenopathy. Small, nonenlarged, normal-sized level IIIB lymph nodes bilaterally. Vascular: There is opacification of the major arterial and venous structures throughout the neck. There are partially calcified atheromatous plaques at both carotid bulbs with less than 50% diameter reduction stenosis by NASCET criteria. Upper Chest: Visualized lung parenchyma is clear. There are nonspecific noncalcified pleural plaques along the anterior right upper lobe. Tiny calcified juxtapleural nodule medial left lung apex possibly a calcified granuloma. Tiny noncalcified juxtapleural nodule lateral right lung apex. Visualized mediastinum is within normal limits. Skeletal: Multilevel DDD and spondylosis noted with mild anterolisthesis at C4-C5. Right-sided TMJ arthropathy noted. There is also narrowing of the left TMJ. Other Comments: None. CT/CT soft tissue neck w IV con IMPRESSION: 1. No specific cause for dysphagia is identified within the limitations of the exam. 2. Bilaterally symmetric but slightly bulky appearance to the nasopharynx. Recommend correlation with direct visualization. 3. 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 Follow-up as per clinical indications. 4. Postoperative changes involving the anterior oral cavity. Correlate for any history of dental procedures to explain this. 5. Bilateral partially calcified atheromatous plaques at both carotid bulbs with less than 50% diameter reduction stenosis by NASCET criteria. Suggest correlation with carotid ultrasound if clinically warranted. 6. Multilevel cervical degenerative changes.
[2022-03-09 07:45] LABS: MANUAL DIFF FLAG NO
[2022-03-09 07:48] LABS: Basophils Absolute Auto 0.1 X10*3/uL (0.0-0.2); Basophils Percent Auto 1.2 % (0-2); Eosinophils Absolute Auto 0.3 X10*3/uL (0.0-0.4); Eosinophils Percent Auto 4.7 % (0-4); Hematocrit 41.1 % (42.0-52.0); Imm Gran Abs Auto 0.02 X10*3/uL (0.00-0.03); Imm Gran Pct Auto 0.3 % (0.0-0.4); Lymphocytes Percent Auto 33.4 % (20-40); Mean Corpuscular HGB Conc 34.1 g/dl (31.0-36.0); Mean Corpuscular Hemoglobin 31.8 pg (27.0-33.0); Mean Corpuscular Volume 93.4 fL (80.0-98.0); Mean Platelet Volume 9.8 fL (9.4-12.4); Monocytes Absolute Auto 0.5 X10*3/uL (0.1-1.2); Monocytes Percent Auto 8.9 % (2-11); Neutrophils Absolute Auto 3.1 x10*3/uL (2.0-8.3); Neutrophils Percent Auto 51.5 % (45-73); Platelet Count 302 X10*3/uL (160-400); Red Cell Distribution Width 12.1 % (11.0-16.0)
[2022-03-09 08:03] LABS: Estimated Average Glucose 166 mg/dL; Hemoglobin A1c % 7.4 %
[2022-03-09 09:10] LABS: Alanine Aminotransferase 23 U/L (0-40); Albumin Level 4.4 g/dL (3.5-5.0); Alkaline Phosphatase 66 U/L (39-117); Anion Gap 14 (12-20); Aspartate Amino Transferase 25 U/L (5-37); Bilirubin Total 0.7 mg/dL (0.0-1.0); Blood Urea Nitrogen 15 mg/dL (9-16); Calcium 9.5 mg/dL (8.4-10.2); Carbon Dioxide 27 mmol/L (22-29); Chloride 102 mmol/L (96-108); Cholesterol 109 mg/dL; Estimated Glomerular Filt Rate > 60; Glucose Random 188 mg/dL (60-115); HDL Cholesterol 37 mg/dL; LDL Cholesterol Calculated 50 mg/dl; Potassium 4.8 mmol/L (3.3-5.1); Sodium 138 mmol/L (135-145); Triglycerides 111 mg/dL
[2022-03-09 09:26] LABS: Free T4 (Free Thyroxine) 1.43 ng/dL (0.71-1.85); Thyroid Stimulating Hormone 2.15 uIU/mL (0.32-4.0)
[2022-03-09 12:21] LABS: Creatinine Urine 113.92 mg/dL; Microalbum/Creatinine Ratio Ur 5.2 ug/mg cr
[2022-03-09] MEDS: iohexoL 350 MG/ML 100 ML INFUS..BTL IV (14:41)
[2022-03-09 15:03] LABS: Folate 18.4 ng/mL (> or = 4.0); Vitamin B12 519 pg/mL (200-900)
== END 2022-03-09 07:35 | disposition home or self-care (01) ==
LOC: HO.CT 07:34
PROVIDERS: Absent Provider Internal Medicine; PCP Internal Medicine; Visit Provider Nurse Practitioner Family
DX: E11.65 Type 2 diabetes mellitus with hyperglycemia (principal); E03.9 Hypothyroidism, unspecified; I10 Essential (primary) hypertension; E78.00 Pure hypercholesterolemia, unspecified; R13.10 Dysphagia, unspecified; Z80.0 Family history of malignant neoplasm of digestive organs
CPT/HCPCS: 36415; 70491; 80053; 80061; 82043; 82607; 82746; 83036; 84439; 84443; 85025; Q9967

== ENCOUNTER 2022-03-19 06:03 | Outpatient (REF) | payer MEDICARE, OTHER, SELFPAY ==
[2022-03-19 08:06] LABS: Creatinine Urine 84.26 mg/dL
[2022-03-19 08:12] LABS: Blood Urea Nitrogen 15 mg/dL (9-16); Estimated Glomerular Filt Rate > 60
[2022-03-19 08:32] LABS: Free T4 (Free Thyroxine) 1.27 ng/dL (0.71-1.85); Thyroid Stimulating Hormone 0.86 uIU/mL (0.32-4.0)
== END 2022-03-19 06:04 | disposition home or self-care (01) ==
LOC: HO.LAB 06:03
PROVIDERS: PCP Internal Medicine; Visit Provider Internal Medicine
DX: E03.9 Hypothyroidism, unspecified (principal); E11.65 Type 2 diabetes mellitus with hyperglycemia; Z82.49 Family history of ischemic heart disease and other diseases of the circulatory system
CPT/HCPCS: 36415; 82565; 84439; 84443; 84520

== ENCOUNTER 2022-03-28 07:54 | Outpatient (REF) | payer MEDICARE, OTHER, SELFPAY ==
--- NOTE | ~2022-03-28 | CT_ITS ---
EXAMINATION: CT ANGIOGRAM BRAIN, HEAD CLINICAL INFORMATION: Family history of ischemic heart disease and other disease. History of dysphagia. COMPARISON: None TECHNIQUE: Test bolus sequences followed by intravenous administration 75 mL of Omnipaque 350 intravenous contrast. Helical imaging was performed in the axial plane from the skull base to the vertex. Delayed postcontrast imaging of the head was also performed. The data was processed at the agricultural research technologist workstation for generation of MIP sequences. Three-dimensional volume rendered reformatted images were also generated at an offline 3-D workstation. The degree of stenosis determined by NASCET criteria. This CT examination was performed using dose optimization techniques as appropriate, variously including the following: *Automated exposure control *Adjustment of mA and/or kV according to patient size (this includes techniques or standardized protocols for targeted exams where dose is matched to indication/reason for exam; i.e. extremities or head) *Use of iterative reconstruction technique DLP: 2368 mGy-cm FINDINGS: Unenhanced and delayed IV postcontrast enhanced CT of the head: No intracranial hemorrhage, tumors or acute infarcts are visualized. Mild diffuse commensurate prominence of ventricles and sulci is noted. No focal parenchymal lesions of the brain or abnormal extra-axial fluid collections visualized. No abnormal enhancement of the brain noted. No significant opacification of the mastoid air cells and middle ear cavities. Opacification of a small number of left ethmoid air cells and minimal mucosal thickening within the left frontal sinus. CT angiography head: Minimal punctate atherosclerotic plaques are present in the cavernous segments of the left and right internal carotid arteries. No intracranial stenoses, occlusions or aneurysms are noted. Bilateral origins of the posterior cerebral arteries are visualized. No vascular stenoses or contour abnormalities are identified. The left vertebral artery is minimally dominant. An anterior communicating artery is present. CT/CT angio head IMPRESSION: *Minimal nonocclusive scattered punctate atherosclerotic plaques within the cavernous portions of the left and right internal carotid arteries; otherwise, normal CT angiography of the head. No intracranial large vessel occlusions. No intracranial aneurysms or stenoses identified.
[2022-03-28] MEDS: iohexoL 350 MG/ML 100 ML INFUS..BTL IV (09:40)
== END 2022-03-28 07:55 | disposition home or self-care (01) ==
LOC: HO.CT 07:54
PROVIDERS: PCP Internal Medicine; Visit Provider Internal Medicine
DX: H91.90 Unspecified hearing loss, unspecified ear (principal); Z82.49 Family history of ischemic heart disease and other diseases of the circulatory system
CPT/HCPCS: 70496; Q9967

== ENCOUNTER → 2022-05-21 08:16 | Outpatient (BNVA) | payer MEDICARE, OTHER, SELFPAY | PROVIDERS: PCP Internal Medicine; Referring Provider Internal Medicine; Visit Provider Nurse Practitioner Family | DX: K21.9 Gastro-esophageal reflux disease without esophagitis (principal); R13.12 Dysphagia, oropharyngeal phase | CPT/HCPCS: 99212 ==

== ENCOUNTER 2022-09-04 06:15 | Outpatient (REF) | payer MEDICARE, OTHER, SELFPAY ==
[2022-09-04 06:38] LABS: MANUAL DIFF FLAG NO
[2022-09-04 07:12] LABS: Basophils Absolute Auto 0.1 X10*3/uL (0.0-0.2); Eosinophils Absolute Auto 0.2 X10*3/uL (0.0-0.4); Eosinophils Percent Auto 3.6 % (0-4); Hematocrit 39.1 % (42.0-52.0); Hemoglobin 13.2 g/dl (14.0-18.0); Imm Gran Abs Auto 0.02 X10*3/uL (0.00-0.03); Imm Gran Pct Auto 0.3 % (0.0-0.4); Lymphocytes Absolute Auto 2.1 X10*3/uL (1.2-4.9); Lymphocytes Percent Auto 31.4 % (20-40); Mean Corpuscular HGB Conc 33.8 g/dl (31.0-36.0); Mean Corpuscular Hemoglobin 31.6 pg (27.0-33.0); Mean Corpuscular Volume 93.5 fL (80.0-98.0); Mean Platelet Volume 9.8 fL (9.4-12.4); Monocytes Absolute Auto 0.5 X10*3/uL (0.1-1.2); Neutrophils Absolute Auto 3.8 x10*3/uL (2.0-8.3); Neutrophils Percent Auto 55.7 % (45-73); Platelet Count 302 X10*3/uL (160-400); Red Blood Count 4.18 X10*6/uL (4.60-5.80); Red Cell Distribution Width 12.4 % (11.0-16.0); White Blood Count 6.8 X10*3/uL (4.8-10.8)
[2022-09-04 07:57] LABS: Alanine Aminotransferase 17 U/L (0-40); Alkaline Phosphatase 50 U/L (39-117); Anion Gap 14 (12-20); Aspartate Amino Transferase 20 U/L (5-37); Bilirubin Total 0.7 mg/dL (0.0-1.0); Blood Urea Nitrogen 20 mg/dL (9-16); Carbon Dioxide 27 mmol/L (22-29); Chloride 102 mmol/L (96-108); Cholesterol 96 mg/dL; Estimated Glomerular Filt Rate > 60; Glucose Random 149 mg/dL (60-115); HDL Cholesterol 35 mg/dL; LDL Cholesterol Calculated 45 mg/dl; Potassium 4.3 mmol/L (3.3-5.1); Sodium 139 mmol/L (135-145); Total Protein 6.9 g/dL (6.5-8.0); Triglycerides 83 mg/dL
[2022-09-04 08:00] LABS: Creatinine Urine 139.56 mg/dL
[2022-09-04 08:14] LABS: Free T4 (Free Thyroxine) 1.21 ng/dL (0.71-1.85); Thyroid Stimulating Hormone 3.17 uIU/mL (0.32-4.0)
[2022-09-04 08:17] LABS: Folate 16.9 ng/mL (> or = 4.0); Prostate Specific Antigen Scr 0.45 ng/mL (<0.05-4.0); Vitamin B12 447 pg/mL (200-900)
[2022-09-04 08:33] LABS: Estimated Average Glucose 169 mg/dL; Hemoglobin A1c % 7.5 %
== END 2022-09-04 06:16 | disposition home or self-care (01) ==
LOC: HO.LAB 06:15
PROVIDERS: PCP Internal Medicine; Visit Provider Internal Medicine
DX: E11.65 Type 2 diabetes mellitus with hyperglycemia (principal); E78.00 Pure hypercholesterolemia, unspecified; Z12.5 Encounter for screening for malignant neoplasm of prostate
CPT/HCPCS: 36415; 80053; 80061; 82043; 82607; 82746; 83036; 84153; 84439; 84443; 85025

== ENCOUNTER 2022-11-19 08:49 | Outpatient (AMB) | payer MEDICARE, OTHER, SELFPAY ==
[2022-11-19 08:51] VITALS: BP 136/63; PULSE 70; BMI 28.8
--- NOTE | 2022-11-19 08:51 | MHC.OFFVIS ---
Intake Vital Signs 11/19/22 08:51 Height 5 ft 9 in Weight 195 lb 5.273 oz BMI 28.8 BP 136/63 Blood Pressure Location Rt brachial Position Sitting Pulse 70 Intake Visit Reasons: 6 month follow up Intake Note: Maximus presents in office as a est.patient for a 6month f/u for Dysphagia PT reports doing well today, denies any GI issues or concerns. Correctional Officer Chief Required: No Accompanied by: Self / Same As Patient Allergies oxycodone [OXYCODONE] Allergy (Unknown, Verified 11/19/22 08:52) ITCHING HPI 6 month follow up HPI Details LAST VISIT Dysphagia Discussed with patient eating smaller bites and showing well when eating. Patient was encouraged to drink fluids when swallowing food. Upright precautions discussed. GERD (gastroesophageal reflux disease) Continue current dose of pantoprazole. Discussed with patient avoiding dietary triggers and late night snacking. Staying upright for minimal 3 hours after meals discussed with patient. Will order RAST allergen test. I will see patient in 6 months, sooner on as needed basis. Patient is agreeable to this plan and verbalizes understanding of instructions. He was given the opportunity to ask questions and all questions answered. ? Thank you for allowing me to participate in his care Plan Orders Orders Rast Allergen 05/21/22 K21.9, R13.12 TODAY'S VISIT Patient is here today for follow-up. Patient reports that he has been doing well. Denies any dyspepsia, dysphagia or odynophagia. Takes his pantoprazole daily and states that his symptoms acid reflux are suppressed. Patient no longer experiences dysphagia. He recalls 1 episodes only and the last time I have seen him. Patient denies any other GI concerning symptoms [facility] Medical History Family history of cerebral aneurysm HTN (hypertension) History of alcohol abuse Basal cell carcinoma (BCC) History of depression On beta zoe at home Hx of sigmoidoscopy Vitamin B1 deficiency Hypercholesterolemia Type 2 diabetes mellitus with hyperglycemia Chronic anemia Hypothyroidism Type 2 diabetes mellitus with diabetic polyneuropathy Essential hypertension Surgical History Status post right foot surgery Hx of colonoscopy Lipoma of right axilla Hx of tonsillectomy Hx of Achilles tendon repair Hx of carpal tunnel repair History of total right knee replacement H/O repair of rotator cuff Family History Father Throat cancer Diabetes Bladder cancer Lung cancer Mother No problems noted. 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 Current occupational exposures/hazards: No Cognitive needs: No Hearing needs: No Vision needs: Yes Review of Systems Const Denies weight gain and Denies weight loss ENT Reports no additional complaints, Denies dysphagia and Denies odynophagia Card Reports no additional complaints Resp Reports no additional complaints GI Denies abdominal pain, Denies belching, Denies melena, Denies bloating, Denies change in bowel habits, Denies dysphagia, Denies excessive flatus, Denies dyspepsia, Denies heartburn, Denies diarrhea, Denies loose stools, Denies nausea, Denies odynophagia and Denies vomiting Reports no additional complaints Musc Reports no additional complaints Neuro Reports no additional complaints Psych Reports no additional complaints Endo Reports no additional complaints Physical Exam Vital Signs: Last Vital Signs Pulse 70 11/19/22 08:51 BP 136/63 11/19/22 08:51 BMI result Body Mass Index 28.8 Const General: healthy appearing, no acute distress and well developed Nutritional Appearance: well nourished Orientation/consciousness: patient oriented x3 HEENT Head: Yes normal to inspection, Yes normocephalic and Yes atraumatic Face and sinus: Yes normal facial exam Mouth: Normal oral and palatal mucosa present Throat: Yes posterior oropharynx normal, Yes tonsils normal and Yes uvula midline Eyes General: appearance normal, both eyes and all related structures Neck Neck: Yes normal visual inspection, Yes full ROM and Yes trachea midline Thyroid: Thyroid normal Resp Effort & Inspection: normal respiratory effort, able to speak in complete sentences, no tracheal deviation and symmetric chest movement Auscultation: clear to auscultation bilaterally Cardio Rate: regular rate Heart sounds: S1 normal heart sound present and S2 normal heart sound present GI Inspection: Yes normal to inspection and No distended Palpation (GI): Soft to palpation, not firm, nontender and No hepatosplenomegaly present Auscultation: normal bowel sounds General: Yes no CVA tenderness Back/Spine/Pelvis Back: no CVA tenderness Skin General skin exam: elasticity normal, turgor normal and dry skin Neuro General: patient oriented x3 Psych Appearance: grossly normal Mental Status: mental status grossly normal Speech and movement: Normal speech and movement present Assessment & Plan Assessment & Plan (1) Dysphagia: Code(s): R13.10 - Dysphagia, unspecified Qualifiers: Dysphagia type: oropharyngeal phase Qualified Code(s): R13.12 - Dysphagia, oropharyngeal phase (2) GERD (gastroesophageal reflux disease): Code(s): K21.9 - Gastro-esophageal reflux disease without esophagitis Qualifiers: Esophagitis presence: without esophagitis Qualified Code(s): K21.9 - Gastro-esophageal reflux disease without esophagitis Plan Patient no longer has trouble swallowing. Patient is taking pantoprazole daily and his symptoms are completely suppressed. Patient will be due to go for colonoscopy in February of 2024. I will see him in 1 year, sooner on as needed basis. Patient is agreeable to this plan and verbalizes understanding of instructions. He was given the opportunity to ask questions and all questions answered. Thank you for allowing me to participate in his care Coding Level of Care Code Est Pt Level 3 (76279) Diagnoses Oropharyngeal dysphagia R13.12 Dysphagia type: oropharyngeal phase Gastroesophageal reflux disease without esophagitis K21.9 Esophagitis presence: without esophagitis Time Spent (min) 25 Comment 15 minutes spent with patient and additional 10 minutes spent reviewing his records
== END 2022-11-19 09:31 | disposition home or self-care (01) ==
PROVIDERS: PCP Internal Medicine; Visit Provider Nurse Practitioner Family
DX: R13.12 Dysphagia, oropharyngeal phase (principal); K21.9 Gastro-esophageal reflux disease without esophagitis
CPT/HCPCS: 99213

== ENCOUNTER → 2022-11-19 08:49 | Outpatient (BNVA) | payer MEDICARE, OTHER, SELFPAY | PROVIDERS: PCP Internal Medicine; Visit Provider Nurse Practitioner Family | DX: R13.12 Dysphagia, oropharyngeal phase (principal); K21.9 Gastro-esophageal reflux disease without esophagitis; Z79.899 Other long term (current) drug therapy | CPT/HCPCS: 99212 ==

== ENCOUNTER 2022-12-25 06:25 | Outpatient (REF) | payer MEDICARE, OTHER, SELFPAY ==
[2022-12-25 09:31] LABS: Creatinine Urine 186.27 mg/dL
== END 2022-12-25 06:26 | disposition home or self-care (01) ==
LOC: HO.LAB 06:25
PROVIDERS: PCP Internal Medicine; Visit Provider Internal Medicine
DX: E11.65 Type 2 diabetes mellitus with hyperglycemia (principal)
CPT/HCPCS: 82570

== ENCOUNTER 2022-12-25 08:30 | Outpatient (AMB) | payer MEDICARE, OTHER, SELFPAY ==
[2022-12-25 08:33] VITALS: BP 124/68; PULSE 64; O2SAT 98; BMI 26.8
--- NOTE | 2022-12-25 08:33 | A.OFFPC_ITS ---
Vital Signs 12/25/22 08:33 Height 5 ft 11 in Weight 192 lb BMI 26.8 BP 124/68 Blood Pressure Location Lt brachial Position Sitting Pulse 64 Pulse Source Pulse Oximeter Pulse Oximetry (%) 98 Oxygen Delivery Method Room Air Intake Visit Reasons: 3 month f/u Allergies oxycodone [OXYCODONE] Allergy (Unknown, Verified 12/25/22 08:33) ITCHING Medication List - Last Reconciled 12/25/22 by Dea Simpson, atorvastatin 40 mg PO BEDTIME blood sugar diagnostic (FreeStyle Lite Strips) As directed check the BS QD blood-glucose meter (FreeStyle Lite Meter kit) As directed cholecalciferol (vitamin D3) 50 mcg PO DAILY citalopram 20 mg PO DAILY cyanocobalamin (vitamin B-12) 1,000 mcg IM Q4W 90 days [Diabetic shoes As directed] diclofenac sodium 75 mg PO BID dulaglutide 3 mg (0.5 mL) subcut QWEEK 90 days ferrous sulfate (iron) 325 mg PO BID 90 days flash glucose scanning reader (EZChipStyle Mj 14 Day [place]) As directed flash glucose sensor (FreeStyle Mj 14 Day Sensor kit) As directed furosemide 20 mg PO once aweek saturday; 90 days lancets (EZChipStyle Lancets) As directed check BS QD levothyroxine 125 mcg PO DAILY 90 days lisinopril 30 mg PO DAILY 90 days metformin 1,000 mg PO BID 90 days metoprolol succinate ER 50 mg PO DAILY 90 days multivitamin 1 tab PO DAILY pantoprazole 40 mg PO DAILY pioglitazone 30 mg PO DAILY syringe with needle (BD Luer-Myron Syringe) As directed triamcinolone acetonide 0.5% 1 appl topical BID Tobacco use date assessed: 06/05/22 Fall risk assessment: 1 Fall in past year Last assessed Fall Risk: 12/25/22 Dental Screening Dental Screen Date: 12/25/22 Did you have a dental visit in the last 12 months?: No Did you have a dental problem in the last 6 months where you did not have access to dental care?: No Was dental information given to patient?: Patient has dentist HPI 3 month f/u HPI Details 72-year-old male with diabetes mellitus hypercholesterolemia hypothyroidism generalized anxiety disorder last seen in August 2022. Colonoscopy is up-to-date February 2021 3 years. Patient follows up with Hematology Oncology for normocytic anemia on a monthly by the min B12 supplementation and on continued monitoring. Patient saw Gastroenterology for the dysphagia problem which has now resolved on pantoprazole. . Patient complains of feeling unsteady and discussed about fluid intake patient barely drinks 4 cups. Discussed importance of fluid intake patient is on furosemide on the list as well as on blood pressure medication and so advised to drink enough water. [facility] Medical History (Updated 12/25/22 @ 09:06 by Dea Simpson MD) Shortness of breath Colon cancer screening Family history of cerebral aneurysm HTN (hypertension) History of alcohol abuse Basal cell carcinoma (BCC) History of depression On beta zoe at home Hx of sigmoidoscopy Vitamin B1 deficiency Hypercholesterolemia Type 2 diabetes mellitus with hyperglycemia Chronic anemia Hypothyroidism Type 2 diabetes mellitus with diabetic polyneuropathy Essential hypertension Surgical History Status post right foot surgery Hx of colonoscopy Lipoma of right axilla Hx of tonsillectomy Hx of Achilles tendon repair Hx of carpal tunnel repair History of total right knee replacement H/O repair of rotator cuff Family History Father Throat cancer Diabetes Bladder cancer Lung cancer Mother No problems noted. 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 1. Little interest or pleasure in doing things: not at all 2. Feeling down, depressed, or hopeless: not at all 3. Trouble falling or staying asleep, or sleeping too much: not at all 4. Feeling tired or having little energy: not at all 5. Poor appetite or overeating: not at all 6. Feeling bad about yourself - or that you are a failure or have let yourself or your family down: not at all 7. Trouble concentrating on things, such as reading the newspaper or watching television: not at all 8. Moving or speaking so slowly that other people could have noticed. Or the opposite - being so fidgety or restless that you have been moving around a lot more than usual: not at all 9. Thoughts that you would be better off or of hurting yourself in some way: not at all Total score: 0 Depression Screening Interpretation: Negative Depression Screening Done: Yes Source: Developed by Drs. Ottoniel Solis, Michelle Evangelista, Rubén Fritz and colleagues, with an educational nina from [employer] Thrive Questionnaire Date Thrive assessed: 06/05/22 JOSE JUAN-7 AMB Questionnaire JOSE JUAN-7 Date JOSE JUAN - 7 assessed: 06/05/22 Source: Developed by Drs. Ottoniel Solis, Michelle Evangelista, Rubén Fritz and colleagues, with an educational nina from [employer] Physical exam (Primary Care) Vital Signs: Last Vital Signs Pulse 64 12/25/22 08:33 BP 124/68 12/25/22 08:33 Pulse Ox 98 12/25/22 08:33 Oxygen Delivery Method Room Air 12/25/22 08:33 BMI result Body Mass Index 26.8 Tobacco/Smoking Status: Tobacco use Status Tobacco use date assessed 06/05/22 12/25/22 08:34 Patient Tobacco Use Status Former Tobacco user 12/25/22 08:34 Tobacco use type Cigarette 12/25/22 08:34 e-Cigarette/Vaping Use Never Used 12/25/22 08:34 PHQ-9: PHQ-9 Score PHQ-9: Total score 0 12/25/22 08:57 Depression Screening Interpretation: Negative Thrive Assessment: Date of Thrive Assessment Date Thrive assessed 06/05/22 12/25/22 08:34 Const General: alert; No acute distress Eyes Conjunctivae: conjunctivae normal Resp Auscultation: clear to auscultation bilaterally Cardio Rate: regular rate Rhythm: regular rhythm GI Inspection: Yes normal to inspection Extrem General: Yes normal to inspection and No edema Results AMB Hemoglobin A1c AMB Hemoglobin A1c 7.3 % Last Edit by QIANA Puentes on 12/25/22 09:11 Assessment and Plan Assessment & Plan (1) Type 2 diabetes mellitus with hyperglycemia: Comment: Dr. Anton Code(s): E11.65 - Type 2 diabetes mellitus with hyperglycemia Qualifiers: Diabetes mellitus assisted insulin use: without fisheries enforcement officer use Qualified Code(s): E11.65 - Type 2 diabetes mellitus with hyperglycemia Plan: Decrease the amount of carbohydrate intake, pasta, bread, rice and potatoes are all sugar and that is aside from all the sweet stuff, remember that fruits are good but they are Sweet also. Hemoglobin A1c goal of less than 7.0 patient takes Trulicity 3 mg metformin 1000 mg twice a day pioglitazone 30 mg once a day (2) Anemia: Code(s): D64.9 - Anemia, unspecified Qualifiers: Anemia type: iron deficiency Iron deficiency anemia type: unspecified iron deficiency Qualified Code(s): D50.9 - Iron deficiency anemia, unspecified Plan: Normocytic anemia patient follows up with Hematology Oncology and has been stable. (3) Essential hypertension: Code(s): I10 - Essential (primary) hypertension Plan: Continue with blood pressure medication. Decrease salt intake and exercise patient takes metoprolol 50 mg once a day lisinopril 30 mg once a day (4) Hypercholesterolemia: Code(s): E78.00 - Pure hypercholesterolemia, unspecified Plan: Avoid fried foods, chicken skin, eggs, butter margarine, pastries and meat. Be it pork or beef they have a lot of cholesterol LDL goal of less than 100 and triglyceride of less than 150 patient is taking atorvastatin 40 mg once a (5) Hypothyroidism: Code(s): E03.9 - Hypothyroidism, unspecified Qualifiers: Hypothyroidism type: acquired Qualified Code(s): E03.9 - Hypothyroidism, unspecified Plan: Continue with thyroid medication August 2022 last blood work (6) Generalized anxiety disorder: Code(s): F41.1 - Generalized anxiety disorder Plan: Continue with present medication (7) Gastroesophageal reflux disease: Code(s): K21.9 - Gastro-esophageal reflux disease without esophagitis Plan: Avoid the foods that causes that usually spicy foods, tomato products, juices, coffee, soda and foods that your sensitive to. After eating do not lie down, allow 3-4 hours before in lie down. And keep the head of bed above 30 degrees to avoid the acid from going up. Orders: Orders AMB Hemoglobin A1c Today E11.65 - Type 2 diabetes mellitus with hyperglycemia Comprehensive Met. Panel Today E11.65 - Type 2 diabetes mellitus with hyperglycemia Coding Level of Care Code Est Pt Level 4 (72276) Diagnoses Type 2 diabetes mellitus with hyperglycemia, without long-term current use of insulin E11.65 Diabetes mellitus assisted insulin use: without assisted use Iron deficiency anemia, unspecified iron deficiency anemia type D50.9 Anemia type: iron deficiency Iron deficiency anemia type: unspecified iron deficiency Essential hypertension I10 Hypercholesterolemia E78.00 Acquired hypothyroidism E03.9 Hypothyroidism type: acquired Generalized anxiety disorder F41.1 Gastroesophageal reflux disease K21.9
== END 2022-12-25 09:17 | disposition home or self-care (01) ==
PROVIDERS: PCP Internal Medicine; Visit Provider Internal Medicine
DX: E11.65 Type 2 diabetes mellitus with hyperglycemia (principal); D50.9 Iron deficiency anemia, unspecified; I10 Essential (primary) hypertension; E78.00 Pure hypercholesterolemia, unspecified; E03.9 Hypothyroidism, unspecified; F41.1 Generalized anxiety disorder; K21.9 Gastro-esophageal reflux disease without esophagitis
CPT/HCPCS: 83036; 99214

== ENCOUNTER 2023-04-10 06:10 | Outpatient (REF) | payer MEDICARE, OTHER, SELFPAY ==
[2023-04-10 07:57] LABS: Alanine Aminotransferase 17 U/L (0-40); Albumin Level 4.2 g/dL (3.5-5.0); Alkaline Phosphatase 54 U/L (39-117); Anion Gap 11 (12-20); Aspartate Amino Transferase 20 U/L (5-37); Bilirubin Total 0.5 mg/dL (0.0-1.0); Blood Urea Nitrogen 13 mg/dL (9-16); Carbon Dioxide 30 mmol/L (22-29); Chloride 102 mmol/L (96-108); Estimated Glomerular Filt Rate > 60; Glucose Random 127 mg/dL (60-115); Potassium 4.2 mmol/L (3.3-5.1); Sodium 139 mmol/L (135-145); Total Protein 6.8 g/dL (6.5-8.0)
== END 2023-04-10 06:11 | disposition home or self-care (01) ==
LOC: HO.LAB 06:10
PROVIDERS: PCP Internal Medicine; Visit Provider Internal Medicine
DX: E11.65 Type 2 diabetes mellitus with hyperglycemia (principal)
CPT/HCPCS: 36415; 80053

== ENCOUNTER 2023-04-11 08:13 | Outpatient (AMB) | payer MEDICARE, OTHER, SELFPAY ==
[2023-04-11 08:33] VITALS: BP 136/82; PULSE 68; O2SAT 95; BMI 27.1
--- NOTE | 2023-04-11 08:33 | MHC.PC.OV ---
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 Required: No Allergies oxycodone [OXYCODONE] Allergy (Unknown, Verified 04/11/23 08:36) ITCHING Tobacco use date assessed: 04/11/23 Fall risk assessment: No Falls in past year Last assessed Fall Risk: 04/11/23 Dental Screening Dental Screen Date: 04/11/23 Did you have a dental visit in the last 12 months?: Yes Did you have a dental problem in the last 6 months where you did not have access to dental care?: No Was dental information given to patient?: Patient has dentist HPI 3mth f/u HPI Details 72-year-old overweight male with diabetes mellitus chronic anemia hypertension hypercholesterolemia hypothyroidism GERD and generalized anxiety disorder last seen in December 2022. Patient's last colonoscopy was done in February 2021 and has been advised repeat in 3 years. 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 problem with teeth. hx of smoking. asking about Lung cancer screening guidleins- quit > 15 years. tinnitus, . L thumb locking up and told trigger finger but decline referral. [facility] Medical History (Updated 04/11/23 @ 09:06 by Dea Simpson MD) Shortness of breath Colon cancer screening Family history of cerebral aneurysm HTN (hypertension) History of alcohol abuse Basal cell carcinoma (BCC) History of depression On beta zoe at home Hx of sigmoidoscopy Vitamin B1 deficiency Hypercholesterolemia Type 2 diabetes mellitus with hyperglycemia Chronic anemia Hypothyroidism Type 2 diabetes mellitus with diabetic polyneuropathy Essential hypertension Surgical History Status post right foot surgery Hx of colonoscopy Lipoma of right axilla Hx of tonsillectomy Hx of Achilles tendon repair Hx of carpal tunnel repair History of total right knee replacement H/O repair of rotator cuff Family History Father Throat cancer Diabetes Bladder cancer Lung cancer Mother No problems noted. 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 Current occupational exposures/hazards: No Cognitive needs: No Hearing needs: No Vision needs: Yes Questionnaire Thrive Questionnaire Date Thrive assessed: 04/11/23 I am a: Patient What is your living situation today?: I have a steady place to live Within the past 12 months, did the food you bought not last and you didn't have the money to get more?: Never true Within the past 12 months, did you worry whether your food would run out before you got money to buy more?: Never true Do you have trouble paying for medicines?: No Do you have trouble getting transportation to medical appointments?: No Do you have trouble paying your heating and electricity bill?: No Do you have trouble taking care of your child, family member or friend?: No Do you have trouble with day-to-day activities such as bathing, preparing meals, shopping, managing finances, etc.?: No Are you currently unemployed and looking for a job?: No Are you interested in more education?: No Please select the resources that you would like help with: None THRIVE Score: 0 AUDIT C Alcohol Use Questionnaire (AUDIT-C) 1. How often do you have a drink containing alcohol?: Never 2. How many drinks containing alcohol do you have on a typical day when you are drinking?: 1 or 2 (0) 3. How often do you have six or more drinks on one occasion?: Never Total Score: 0 JOSE JUAN-7 AMB Questionnaire JOSE JUAN-7 Date JOSE JUAN - 7 assessed: 04/11/23 Source: Developed by Drs. Ottoniel Solis, Michelle Evangelista, Rubén Fritz and colleagues, with an educational nina from [employer]. Physical exam (Primary Care) Vital Signs: Last Vital Signs Pulse 68 04/11/23 08:33 BP 136/82 04/11/23 08:33 Pulse Ox 95 04/11/23 08:33 Oxygen Delivery Method Room Air 04/11/23 08:33 BMI result Body Mass Index 27.1 Tobacco/Smoking Status: Tobacco use Status Tobacco use date assessed 04/11/23 04/11/23 08:38 Patient Tobacco Use Status Former Tobacco user 04/11/23 08:38 Tobacco use type Cigarette 04/11/23 08:38 e-Cigarette/Vaping Use Never Used 04/11/23 08:38 Thrive Assessment: Date of Thrive Assessment Date Thrive assessed 04/11/23 04/11/23 08:38 Const General: alert; No acute distress Eyes Conjunctivae: conjunctivae normal Resp Auscultation: clear to auscultation bilaterally Cardio Rate: regular rate Rhythm: regular rhythm GI Inspection: Yes normal to inspection Extrem General: Yes normal to inspection and No edema Results AMB Hemoglobin A1c AMB Hemoglobin A1c 7.5 % Last Edit by QIANA Golden on 04/11/23 08:47 Assessment and Plan Assessment & Plan (1) Type 2 diabetes mellitus with hyperglycemia: Comment: Dr. Anton Code(s): E11.65 - Type 2 diabetes mellitus with hyperglycemia Qualifiers: Diabetes mellitus ad terminal makeup operator insulin use: without ad terminal makeup operator use Qualified Code(s): E11.65 - Type 2 diabetes mellitus with hyperglycemia Plan: Decrease the amount of carbohydrate intake, pasta, bread, rice and potatoes are all sugar and that is aside from all the sweet stuff, remember that fruits are good but they are Sweet also. Hemoglobin A1c goal of less than 7.0 patient presently on Trulicity metformin and pioglitazone. Discussed with the patient concern about blood sugar being elevated/hemoglobin A1c but patient declined any new medication for now . problem with dental and plans of fixing this. (2) Hypercholesterolemia: Code(s): E78.00 - Pure hypercholesterolemia, unspecified Plan: Avoid fried foods, chicken skin, eggs, butter margarine, pastries and meat. Be it pork or beef they have a lot of cholesterol LDL goal of less than 100 and triglyceride of less than 150. August 2022 last blood work (3) Hypothyroidism: Code(s): E03.9 - Hypothyroidism, unspecified Qualifiers: Hypothyroidism type: acquired Qualified Code(s): E03.9 - Hypothyroidism, unspecified Plan: Continue with thyroid medication (4) Essential hypertension: Code(s): I10 - Essential (primary) hypertension Plan: Continue with blood pressure medication. Decrease salt intake and exercise patient is on metoprolol 50 mg once a day lisinopril 30 mg once a day (5) Generalized anxiety disorder: Code(s): F41.1 - Generalized anxiety disorder Plan: Continue with present medication (6) Anemia: Code(s): D64.9 - Anemia, unspecified Qualifiers: Anemia type: iron deficiency Iron deficiency anemia type: unspecified iron deficiency Qualified Code(s): D50.9 - Iron deficiency anemia, unspecified Plan: Chronic unstable (7) Gastroesophageal reflux disease: Code(s): K21.9 - Gastro-esophageal reflux disease without esophagitis Plan: Avoid the foods that causes that usually spicy foods, tomato products, juices, coffee, soda and foods that your sensitive to. After eating do not lie down, allow 3-4 hours before in lie down. And keep the head of bed above 30 degrees to avoid the acid from going up. (8) Tinnitus: Code(s): H93.19 - Tinnitus, unspecified ear Plan: Patient knows about the hearing loss and has hearing aids (9) Trigger finger: Comment: Left thumb Code(s): M65.30 - Trigger finger, unspecified finger Plan: Discussed about the mechanism as well as treatment. Declined referral for now (10) Left hip pain: Code(s): M25.552 - Pain in left hip Plan: Discussed about keeping active as well as stretches before exercising and starting today. Orders: Orders AMB Hemoglobin A1c Today E11.65 - Type 2 diabetes mellitus with hyperglycemia Coding Level of Care Code Est Pt Level 4 (10159) Diagnoses Type 2 diabetes mellitus with hyperglycemia, without long-term current use of insulin E11.65 Diabetes mellitus ad terminal makeup operator insulin use: without alf use Hypercholesterolemia E78.00 Acquired hypothyroidism E03.9 Hypothyroidism type: acquired Essential hypertension I10 Generalized anxiety disorder F41.1 Iron deficiency anemia, unspecified iron deficiency anemia type D50.9 Anemia type: iron deficiency Iron deficiency anemia type: unspecified iron deficiency Gastroesophageal reflux disease K21.9 Tinnitus H93.19 Trigger finger M65.30 Left hip pain M25.552
== END 2023-04-11 09:07 | disposition home or self-care (01) ==
PROVIDERS: PCP Internal Medicine; Visit Provider Internal Medicine
DX: E11.65 Type 2 diabetes mellitus with hyperglycemia (principal); E78.00 Pure hypercholesterolemia, unspecified; E03.9 Hypothyroidism, unspecified; I10 Essential (primary) hypertension; F41.1 Generalized anxiety disorder; D50.9 Iron deficiency anemia, unspecified; K21.9 Gastro-esophageal reflux disease without esophagitis; H93.19 Tinnitus, unspecified ear; M65.30 Trigger finger, unspecified finger; M25.552 Pain in left hip
CPT/HCPCS: 83036; 99214

== ENCOUNTER 2023-05-08 07:56 | Emergency (ER) | payer MEDICARE, OTHER, SELFPAY ==
--- NOTE | ~2023-05-08 | CT_ITS ---
EXAMINATION: CT ABDOMEN AND PELVIS WITHOUT CONTRAST CLINICAL INFORMATION: Low back pain COMPARISON: None available. TECHNIQUE: Multidetector volumetric imaging was performed from the superior aspect of the liver through the pubic symphysis. Sagittal and coronal reformatted images were obtained on the technologist's workstation. This CT examination was performed using dose optimization techniques as appropriate, variously including the following: *Automated exposure control *Adjustment of mA and/or kV according to patient size (this includes techniques or standardized protocols for targeted exams where dose is matched to indication/reason for exam; i.e. extremities or head) *Use of iterative reconstruction technique DLP: 669 mGy-cm FINDINGS: LUNG BASES: Minimal platelike atelectasis in the lingula. There is mild coronary artery calcifications. LIVER, GALLBLADDER, AND BILIARY TREE: The liver is normal in size, shape, and attenuation. There are punctate calcifications in the central liver No focal hepatic lesion or biliary ductal dilatation is present. The gallbladder is unremarkable with no evidence of radiopaque gallstones, gallbladder wall thickening, or obvious pericholecystic inflammatory changes. PANCREAS: Unremarkable. SPLEEN: Unremarkable. ADRENAL GLANDS: Unremarkable. KIDNEYS AND URETERS: The kidneys are normal in size, shape, and attenuation. No hydronephrosis, hydroureter, or calculi seen. No perinephric stranding. BLADDER: Unremarkable. GASTROINTESTINAL TRACT: There is scattered stool, diverticuli and gas seen throughout the colon without distention. There is no diverticulitis. The small bowel loops are normal caliber. No free air or free fluid seen. Appendix is normal caliber ABDOMINAL WALL: Small umbilical hernia containing fat. LYMPH NODES: Normal. VASCULAR: Mild atherosclerotic changes of abdominal aorta without aneurysmal dilatation. PELVIC VISCERA: The prostate gland is mildly enlarged. No free fluid no inguinal hernia or abnormal pelvic or inguinal lymph nodes. OSSEOUS STRUCTURES: There is degenerative disc changes with vacuum disc phenomena L4-L5 disc level. There is mild ventral spondylosis L3-L4, L4-L5 and L5-S1 disc levels. Bilateral L5-S1 facet joint arthropathy seen. There is calcification of anterior longitudinal ligament with spondylosis lower dorsal spine. No aggressive lytic or sclerotic process seen. CT/CT abdomen pelvis wo IV con IMPRESSION: No acute intra-axial abdominal process seen except for moderate constipation and scattered colonic diverticulosis. Severe degenerative disc changes with spondylosis at L4-L5 disc level. There is mild L5-S1 facet joint arthropathy. Fleischner guidelines were followed.
[2023-05-08 08:02] VITALS: BP 142/76; PULSE 67; RESP 14; TEMP 36; O2SAT 97; BMI 27.3
--- NOTE | 2023-05-08 08:18 | ED.BACK ---
HPI - Back Pain/Injury General Chief Complaint: Back Pain/Injury Stated Complaint: Kidney Stones Time Seen by Provider: 05/08/23 08:03 Source: patient Mode of arrival: ambulatory Limitations: no limitations History of Present Illness HPI Narrative: 72-year-old male history of diabetes, hypertension, obesity, asthma, anemia, hearing loss presents to the emergency department for evaluation of lower back pain without radiation pain has been ongoing for the past few days. He reports it is an 8/10 in fluctuates in intensity, it is present intermittently. He says he 1st noted the pain when he was squatting at the gym on a machine. Then he noticed that it would come and go like sharp stabbing pains to his lower back. Patient also reports he has been having darker urine and decreased urination. Denies fevers, chills, numbness, tingling, abdominal pain, chest pain, shortness of breath headache, vision changes, dizziness and weakness Related Data Home Medications Medication Instructions Recorded Confirmed cholecalciferol (vitamin D3) 50 50 mcg PO DAILY 05/25/20 12/25/22 mcg (2,000 unit) tablet multivitamin 1 tab PO DAILY 05/25/20 12/25/22 Previous Rx's Medication Instructions Recorded syringe with needle 3 mL 25 x 1 #100 ea 05/25/20/ (BD Luer-Myron Syringe) flash glucose scanning reader #1 ea 08/25/20 (FreeStyle Mj 14 Day Lamar) flash glucose sensor (FreeStyle #6 kits 08/25/20 Mj 14 Day Sensor kit) blood sugar diagnostic (FreeStyle #100 ea 07/13/21 Lite Strips) blood-glucose meter (FreeStyle #1 ea 07/13/21 Lite Meter kit) lancets 28 gauge (FreeStyle #100 ea 07/13/21 Lancets) pantoprazole 40 mg tablet,delayed 40 mg PO DAILY #30 tabs 05/16/22 release cyanocobalamin (vitamin B-12) 1,000 mcg IM Q4W 90 days #25 mL 08/15/22 1,000 mcg/mL injection solution diclofenac sodium 75 mg 75 mg PO BID #180 tabs 08/15/22 tablet,delayed release metformin 1,000 mg tablet 1,000 mg PO BID 90 days #180 tabs 08/15/22 dulaglutide 3 mg/0.5 mL 3 mg (0.5 mL) subcut QWEEK 90 days 09/05/22 subcutaneous pen injector #6.5 ea triamcinolone acetonide 0.5 % 1 appl topical BID #15 grams 09/05/22 topical cream levothyroxine 125 mcg tablet 125 mcg PO DAILY 90 days #90 tabs 01/12/23 metoprolol succinate 50 mg 50 mg PO DAILY 90 days #90 tabs 01/30/23 tablet,extended release 24 hr Diabetic shoes #1 ea 02/05/23 atorvastatin 40 mg tablet 40 mg PO BEDTIME #90 tabs 02/21/23 ferrous sulfate 325 mg (65 mg 325 mg PO BID 90 days #180 tabs 02/21/23 iron) tablet (iron) furosemide 20 mg tablet 20 mg PO .COMPLEX 90 days #13 tabs 02/21/23 citalopram 20 mg tablet 20 mg PO DAILY #90 tabs 04/20/23 lisinopril 30 mg tablet 30 mg PO DAILY 90 days #90 tabs 04/20/23 pioglitazone 30 mg tablet 30 mg PO DAILY #90 tabs 04/20/23 diclofenac sodium 1 % topical gel 2 g topical QID #100 grams 05/08/23 (Voltaren Arthritis Pain) lidocaine 5 % topical patch 1 patch topical DAILY PRN pain #15 05/08/23 ea prednisone 20 mg tablet 20 mg PO DAILY 5 days #5 tabs 05/08/23 Allergies Allergy/AdvReac Type Severity Reaction Status Date / Time oxycodone [OXYCODONE] Allergy Unknown ITCHING Verified 05/08/23 08:02 Review of Systems Review of Systems: Yes all other systems are reviewed and are negative [facility] Past Medical History Attestation statement: The following information was validated with the patient. Source: old records reviewed and nursing notes reviewed Medical History (Updated 05/08/23 @ 09:48 by CARLOS Malave) Shortness of breath Colon cancer screening Family history of cerebral aneurysm HTN (hypertension) History of alcohol abuse Basal cell carcinoma (BCC) History of depression On beta zoe at home Hx of sigmoidoscopy Vitamin B1 deficiency Hypercholesterolemia Type 2 diabetes mellitus with hyperglycemia Chronic anemia Hypothyroidism Type 2 diabetes mellitus with diabetic polyneuropathy Essential hypertension Surgical History Status post right foot surgery Hx of colonoscopy Lipoma of right axilla Hx of tonsillectomy Hx of Achilles tendon repair Hx of carpal tunnel repair History of total right knee replacement H/O repair of rotator cuff Family History Family History Father Throat cancer Diabetes Bladder cancer Lung cancer Mother No problems noted. Sister Diabetes Brother Throat cancer Social History Social History Household Members: Spouse Housing: House Are you a primary career portals teacher to a significant other at home: No Do you presently have visiting nurse or other home services: No Alcohol intake: former Patient Tobacco Use Status: Former Tobacco user Quit Date: 1981 Tobacco use type: Cigarette Cigarette Packs Per Day: 2 Years Smoked: quit 1999 Smoked in Last 30 Days: No e-Cigarette/Vaping Use: Never Used Second Hand Smoke Exposure: No Use of substances other than those prescribed or required for medical reasons: No Advance Directives: No Advance Directives Information Provided: Yes service: No 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 Oriented X3.? No acute distress.? Head: Normocephalic, atraumatic, no step-offs or deformities Eyes: Pupils equal, round and reactive to light.? Neck: Normal inspection.? Neck supple.? CVS: Normal heart rate and rhythm.? Pulses normal.? Respiratory: No respiratory distress.? Breath sounds normal.? Abdomen: Soft and nontender.? Skin: Skin warm and dry.? Normal skin color.? Normal skin turgor.? Extremities: No lower extremity edema.? No calf ttp. 5/5 strength to bilateral upper and lower extremities Back: No midline tenderness, no C-spine tenderness, full range of motion, no CVA tenderness bilaterally Neuro: Oriented X 3.? No motor deficit.? No sensory deficit. CN 2-12 intact Course Reevaluation(s) Reevaluation #1: CBC appears to be around patient's baseline. Chemistry no acute findings requiring intervention. UA unremarkable. CT abdomen pelvis no acute intra-axial abdominal process seen except for moderate constipation and scattered diverticulosis. Severe degenerative disc changes L4-L5 and mild L5-S1 facet joint arthropathy. This is around where patient is having pain. History and physical exam most consistent with a musculoskeletal etiology. Patient feels well I offered him pain medicine he says he is okay. Educated on Tylenol use. Will send low-dose prednisone explained to patient can elevate sugars to watch closely and if they become high to please return for treatment. Educated patient on diagnosis and treatment plan, answered all question, patient verbalizes understanding. At this time patient will be discharged home, advised to return with new or worsening symptoms. Educated on worrisome signs and symptoms and when to return. At this time I feel comfortable discharge home. Time: 09:55 Medical Decision Making Medical Decision Making MDM Narrative: 72-year-old male presents with lower back pain, concerns he may have a kidney stone he is having darker urine and decreased urination Physical exam benign. History and physical exam concerning for lumbar strain or sprain versus kidney stone versus obstructing stone vs uti vs cystitis. Unlikely cauda equina, epidural abscess, cord compression. Plan basic labs, urine, CT abdomen pelvis. Differential Diagnosis Differential Diagnoses: The differential diagnosis associated with the presentation includes History and physical exam concerning for lumbar strain or sprain versus kidney stone versus obstructing stone vs uti vs cystitis. Unlikely cauda equina, epidural abscess, cord compression. Admission/Observation Consideration of admission/observation: Escalation of care including admission/observation considered unlikely Lab Data 05/08/23 08:44 05/08/23 08:44 Labs: Lab Results 05/08/23 Range/Units 08:44 WBC 6.2 (4.8-10.8) X10*3/uL RBC 4.24 L (4.60-5.80) X10*6/uL Hgb 13.4 L (14.0-18.0) g/dl Hct 39.5 L (42.0-52.0) % MCV 93.2 (80.0-98.0) fL MCH 31.6 (27.0-33.0) pg MCHC 33.9 (31.0-36.0) g/dl RDW 12.5 (11.0-16.0) % Plt Count 303 (160-400) X10*3/uL MPV 9.7 (9.4-12.4) fL Immature Gran % (Auto) 0.3 (0.0-0.4) % Neut % (Auto) 52.4 (45-73) % Lymph % (Auto) 32.1 (20-40) % Cataño % (Auto) 8.7 (2-11) % Eos % (Auto) 5.5 H (0-4) % Baso % (Auto) 1.0 (0-2) % Lymph # (Auto) 2.0 (1.2-4.9) X10*3/uL Cataño # (Auto) 0.5 (0.1-1.2) X10*3/uL Eos # (Auto) 0.3 (0.0-0.4) X10*3/uL Baso # (Auto) 0.1 (0.0-0.2) X10*3/uL Abs Immat Gran (auto) 0.02 (0.00-0.03) X10*3/uL Absolute Neuts (auto) 3.3 (2.0-8.3) x10*3/uL Absolute Nucleated RBC 0.000 (0.0-0.012) X10*3/uL Nucleated RBC % (auto) 0.0 (0.0-0.2) /100WBC Sodium 135 (135-145) mmol/L Potassium 4.3 (3.3-5.1) mmol/L Chloride 101 (96-108) mmol/L Carbon Dioxide 24 (22-29) mmol/L Anion Gap 14 (12-20) BUN 11 (9-16) mg/dL Creatinine 0.73 (0.5-1.4) mg/dL Estim Creat Clear Calc 94.5 Estimated GFR > 60 Random Glucose 164 H (60-115) mg/dL Calcium 9.2 (8.4-10.2) mg/dL Total Bilirubin 0.5 (0.0-1.0) mg/dL AST 25 (5-37) U/L ALT 20 (0-40) U/L Alkaline Phosphatase 58 (39-117) U/L Total Protein 7.5 (6.5-8.0) g/dL Albumin 4.2 (3.5-5.0) g/dL Urine Color Yellow Urine Appearance Clear Urine pH 7.0 (5.0-9.0) Ur Specific Maxwell <= 1.005 (1.005-1.025) Urine Protein Negative (Neg-Trace) mg/dL Urine Glucose (UA) Negative (Negative) mg/dL Urine Ketones Negative (Negative) mg/dL Urine Blood Negative (Negative) Urine Nitrite Negative (Negative) Ur Leukocyte Esterase Negative (Negative) Critical Care Time Critical Care Time Critical Care Time: No Discharge Plan Discharge Clinical Impression: Low back pain Patient Disposition: Home, Self-Care Instructions: Acute Low Back Pain (ED), Back Pain (ED) Additional Instructions: Take your medications as prescribed. If you were prescribed antibiotics today, it is important that you take your medication to their entirety, do not skip any doses, do not finish them early. Follow-up with your primary care provider this week. Return to the emergency department with new or worsening symptoms. Such as fevers, chills, chest pain, shortness of breath, nausea, vomiting, dizziness, headache, vision changes, lethargy In case of emergency call 911 CT/CT abdomen pelvis wo IV con IMPRESSION: No acute intra-axial abdominal process seen except for moderate constipation and scattered colonic diverticulosis. Severe degenerative disc changes with spondylosis at L4-L5 disc level. There is mild L5-S1 facet joint arthropathy. Fleischner guidelines were followed. Prescriptions: New prednisone 20 mg tablet 20 mg PO DAILY 5 Days Qty: 5 0RF lidocaine 5 % adhesive patch,medicated 1 patch topical DAILY PRN (Reason: pain) Qty: 15 0RF Rx Instructions: leave on most painful area for up to 12 hrs diclofenac sodium [Voltaren Arthritis Pain] 1 % gel 2 g topical QID Qty: 100 0RF Rx Instructions: apply to single elbow, wrist or hand; for hand includes palm/fingers/back of hand No Action (DME) FreeStyle Lite Strips Strip See Rx Instructions .ROUTE .MEDSUPPLY Qty: 100 3RF Rx Instructions: As directed check the BS QD (DME) blood-glucose meter [FreeStyle Lite Meter] Kit See Rx Instructions .ROUTE .MEDSUPPLY Qty: 1 0RF Rx Instructions: As directed (DME) lancets [FreeStyle Lancets] 28 gauge misc See Rx Instructions .ROUTE .MEDSUPPLY Qty: 100 3RF Rx Instructions: As directed check BS QD pantoprazole 40 mg tablet,delayed release (DR/EC) 40 mg PO DAILY Qty: 30 2RF Rx Instructions: take one tablet half an hour before breakfast metformin 1,000 mg tablet 1,000 mg PO BID 90 Days Qty: 180 3RF diclofenac sodium 75 mg tablet,delayed release (DR/EC) 75 mg PO BID Qty: 180 1RF cyanocobalamin (vitamin B-12) 1,000 mcg/mL solution 1,000 mcg IM Q4W 90 Days Qty: 25 3RF levothyroxine 125 mcg tablet 125 mcg PO DAILY 90 Days Qty: 90 3RF metoprolol succinate 50 mg tablet extended release 24 hr 50 mg PO DAILY 90 Days Qty: 90 2RF (DME) Diabetic shoes See Rx Instructions .Route .MEDSUPPLY Qty: 1 0RF Rx Instructions: As directed atorvastatin 40 mg tablet 40 mg PO BEDTIME Qty: 90 3RF ferrous sulfate [iron] 325 mg (65 mg iron) tablet 325 mg PO BID 90 Days Qty: 180 2RF furosemide 20 mg tablet 20 mg PO .COMPLEX 90 Days Qty: 13 3RF Rx Instructions: 20 mg PO once aweek saturday; lisinopril 30 mg tablet 30 mg PO DAILY 90 Days Qty: 90 3RF pioglitazone 30 mg tablet 30 mg PO DAILY Qty: 90 1RF citalopram 20 mg tablet 20 mg PO DAILY Qty: 90 1RF (DME) FreeStyle Mj 14 Day Sensor Kit See Rx Instructions .ROUTE .MEDSUPPLY Qty: 6 3RF Rx Instructions: As directed (DME) FreeStyle Mj 14 Day Lamar Misc See Rx Instructions .ROUTE .MEDSUPPLY Qty: 1 0RF Rx Instructions: As directed cholecalciferol (vitamin D3) 50 mcg (2,000 unit) tablet 50 mcg PO DAILY multivitamin Tablet 1 tab PO DAILY (DME) BD Luer-Myron Syringe 3 mL 25 x 1 1/2 syringe See Rx Instructions .ROUTE .MEDSUPPLY Qty: 100 0RF Rx Instructions: As directed dulaglutide 3 mg/0.5 mL pen injector 3 mg subcut QWEEK 90 Days Qty: 6.5 2RF triamcinolone acetonide 0.5 % cream 1 appl topical BID Qty: 15 0RF Referrals: Po,Dea Peace MD [Primary Care Provider] - 2 days Interventions: ED Discharge Assessment Last Done: 05/08/23 10:22 Discharge Date/Time: 05/08/23 10:22
[2023-05-08 08:50] LABS: MANUAL DIFF FLAG NO
[2023-05-08 08:56] LABS: Basophils Absolute Auto 0.1 X10*3/uL (0.0-0.2); Eosinophils Absolute Auto 0.3 X10*3/uL (0.0-0.4); Eosinophils Percent Auto 5.5 % (0-4); Hematocrit 39.5 % (42.0-52.0); Hemoglobin 13.4 g/dl (14.0-18.0); Imm Gran Abs Auto 0.02 X10*3/uL (0.00-0.03); Imm Gran Pct Auto 0.3 % (0.0-0.4); Lymphocytes Percent Auto 32.1 % (20-40); Mean Corpuscular HGB Conc 33.9 g/dl (31.0-36.0); Mean Corpuscular Hemoglobin 31.6 pg (27.0-33.0); Mean Corpuscular Volume 93.2 fL (80.0-98.0); Mean Platelet Volume 9.7 fL (9.4-12.4); Monocytes Absolute Auto 0.5 X10*3/uL (0.1-1.2); Monocytes Percent Auto 8.7 % (2-11); Neutrophils Absolute Auto 3.3 x10*3/uL (2.0-8.3); Neutrophils Percent Auto 52.4 % (45-73); Platelet Count 303 X10*3/uL (160-400); Red Blood Count 4.24 X10*6/uL (4.60-5.80); Red Cell Distribution Width 12.5 % (11.0-16.0); White Blood Count 6.2 X10*3/uL (4.8-10.8)
--- NOTE | 2023-05-08 09:04 | PC.NURSE ---
pt a&o x4, pleasant, calm, and cooperative. pt resting quietly on stretcher in no apparent distress. reports 8/10 lower back pain, pt sts his who was a nurse thinks it may be kidney stones. pt reports pain coming and going, worsening with movement. rr even/unlabored. call griffiths within reach. plan of care ongoing.
[2023-05-08 09:05] LABS: Appearance Urine Clear; Color Urine Yellow; Glucose Urine UA Negative (Negative); Leukocyte Esterase Urine Negative (Negative); Nitrite Urine Negative (Negative); Specific Gravity - Urine <= 1.005 (1.005-1.025); Urine Blood Negative (Negative); Urine Ketones Negative (Negative); Urine Protein Negative (Neg-Trace)
[2023-05-08 09:20] LABS: Alanine Aminotransferase 20 U/L (0-40); Albumin Level 4.2 g/dL (3.5-5.0); Alkaline Phosphatase 58 U/L (39-117); Anion Gap 14 (12-20); Aspartate Amino Transferase 25 U/L (5-37); Bilirubin Total 0.5 mg/dL (0.0-1.0); Blood Urea Nitrogen 11 mg/dL (9-16); Calcium 9.2 mg/dL (8.4-10.2); Carbon Dioxide 24 mmol/L (22-29); Chloride 101 mmol/L (96-108); Creatinine Clr Calc Pharmacy 94.5; Estimated Glomerular Filt Rate > 60; Glucose Random 164 mg/dL (60-115); Potassium 4.3 mmol/L (3.3-5.1); Sodium 135 mmol/L (135-145); Total Protein 7.5 g/dL (6.5-8.0)
== END 2023-05-08 10:22 | disposition home or self-care (01) ==
PROVIDERS: Physician Assistant; Emergency Provider Emergency Medicine; PCP Internal Medicine
DX: M54.50 Low back pain, unspecified (principal); M47.816 Spondylosis without myelopathy or radiculopathy, lumbar region; M47.817 Spondylosis without myelopathy or radiculopathy, lumbosacral region; E11.9 Type 2 diabetes mellitus without complications; I10 Essential (primary) hypertension
CPT/HCPCS: 36415; 74176; 80053; 81003; 85025; 99284

== ENCOUNTER 2023-07-18 08:14 | Outpatient (AMB) | payer MEDICARE, OTHER, SELFPAY ==
[2023-07-18 08:23] VITALS: BP 124/72; PULSE 68; O2SAT 97; BMI 26.6
--- NOTE | 2023-07-18 08:23 | A.OFFPC_ITS ---
Vital Signs 07/18/23 08:23 Height 5 ft 11 in Weight 191 lb BMI 26.6 BP 124/72 Blood Pressure Location Lt brachial Position Sitting Pulse 68 Pulse Source Pulse Oximeter Pulse Oximetry (%) 97 Oxygen Delivery Method Room Air Intake Visit Reasons: DM Allergies oxycodone [OXYCODONE] Allergy (Unknown, Verified 07/18/23 08:23) ITCHING Tobacco use date assessed: 04/11/23 Fall risk assessment: 1 Fall in past year Last assessed Fall Risk: 07/18/23 Dental Screening Dental Screen Date: 07/18/23 Did you have a dental visit in the last 12 months?: Yes Did you have a dental problem in the last 6 months where you did not have access to dental care?: No Was dental information given to patient?: Patient has dentist HPI DM HPI Details 72-year-old overweight male with diabete s mellitus hypercholesterolemia hypertension hypothyroidism generalized anxiety disorder GERD coming in for follow-up. Last seen in April 2023. At that time had an A1c of 7.5. Patient is colonoscopy is due this year in February. ER visit in 05/08/[address] of the abdomen pelvis no abdominal process constipation diverticulosis noted severe degenerative disc disease L4-S1 prednisone given. BP at home has been high. discucssed about the the severe deg disease. concern on throat cancer [facility] Medical History (Updated 07/18/23 @ 08:55 by Dea Simpson MD) Shortness of breath Colon cancer screening Family history of cerebral aneurysm HTN (hypertension) History of alcohol abuse Basal cell carcinoma (BCC) History of depression On beta zoe at home Hx of sigmoidoscopy Vitamin B1 deficiency Hypercholesterolemia Type 2 diabetes mellitus with hyperglycemia Chronic anemia Hypothyroidism Type 2 diabetes mellitus with diabetic polyneuropathy Essential hypertension Surgical History Status post right foot surgery Hx of colonoscopy Lipoma of right axilla Hx of tonsillectomy Hx of Achilles tendon repair Hx of carpal tunnel repair History of total right knee replacement H/O repair of rotator cuff Family History Father Throat cancer Diabetes Bladder cancer Lung cancer Mother No problems noted. 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 1. Little interest or pleasure in doing things: not at all 2. Feeling down, depressed, or hopeless: not at all 3. Trouble falling or staying asleep, or sleeping too much: not at all 4. Feeling tired or having little energy: not at all 5. Poor appetite or overeating: not at all 6. Feeling bad about yourself - or that you are a failure or have let yourself or your family down: not at all 7. Trouble concentrating on things, such as reading the newspaper or watching television: not at all 8. Moving or speaking so slowly that other people could have noticed. Or the opposite - being so fidgety or restless that you have been moving around a lot more than usual: not at all 9. Thoughts that you would be better off or of hurting yourself in some way: not at all Total score: 0 Depression Screening Interpretation: Negative Depression Screening Done: Yes Source: Developed by Drs. Ottoniel Solis, Michelle Evangelista, Rubén Fritz and colleagues, with an educational nina from [employer]. Thrive Questionnaire Date Thrive assessed: 04/11/23 AUDIT C Alcohol Use Questionnaire (AUDIT-C) 1. How often do you have a drink containing alcohol?: Never 2. How many drinks containing alcohol do you have on a typical day when you are drinking?: 1 or 2 (0) 3. How often do you have six or more drinks on one occasion?: Never Total Score: 0 JOSE JUAN-7 AMB Questionnaire JOSE JUAN-7 Date JOSE JUAN - 7 assessed: 04/11/23 Source: Developed by Drs. Ottoniel Solis, Michelle Evangelista, Rubén Fritz and colleagues, with an educational nina from [employer]. Physical exam (Primary Care) Vital Signs: Last Vital Signs Pulse 68 07/18/23 08:23 BP 124/72 07/18/23 08:23 Pulse Ox 97 07/18/23 08:23 Oxygen Delivery Method Room Air 07/18/23 08:23 BMI result Body Mass Index 26.6 Tobacco/Smoking Status: Tobacco use Status Tobacco use date assessed 04/11/23 07/18/23 08:25 Patient Tobacco Use Status Former Tobacco user 07/18/23 08:25 Tobacco use type Cigarette 07/18/23 08:25 e-Cigarette/Vaping Use Never Used 07/18/23 08:25 PHQ-9: PHQ-9 Score PHQ-9: Total score 0 07/18/23 08:25 Depression Screening Interpretation: Negative Thrive Assessment: Date of Thrive Assessment Date Thrive assessed 04/11/23 07/18/23 08:25 Const General: alert; No acute distress Eyes Conjunctivae: conjunctivae normal Resp Auscultation: clear to auscultation bilaterally Cardio Rate: regular rate Rhythm: regular rhythm GI Inspection: Yes normal to inspection Extrem General: Yes normal to inspection and No edema Results AMB Hemoglobin A1c AMB Hemoglobin A1c 7.1 % Last Edit by QIANA Golden on 07/18/23 08:38 Assessment and Plan Assessment & Plan (1) Type 2 diabetes mellitus with hyperglycemia: Comment: Dr. Anton Code(s): E11.65 - Type 2 diabetes mellitus with hyperglycemia Qualifiers: Diabetes mellitus intermediate manager insulin use: without intermediate manager use Qualified Code(s): E11.65 - Type 2 diabetes mellitus with hyperglycemia Plan: Decrease the amount of carbohydrate intake, pasta, bread, rice and potatoes are all sugar and that is aside from all the sweet stuff, remember that fruits are good but they are Sweet also. Hemoglobin A1c goal of less than 7.0 patient on Trulicity 3 mg once a week metformin a 1000 mg twice a day pioglitazone 30 mg once a day (2) Essential hypertension: Code(s): I10 - Essential (primary) hypertension Plan: Continue with blood pressure medication. Decrease salt intake and exercise patient taking metoprolol 50 mg once a day lisinopril 30 mg once a day (3) Hypercholesterolemia: Code(s): E78.00 - Pure hypercholesterolemia, unspecified Plan: Avoid fried foods, chicken skin, eggs, butter margarine, pastries and meat. Be it pork or beef they have a lot of cholesterol August 2022 last blood work LDL goal of less than 100 and triglyceride of less than 150 on atorvastatin 40 mg once a day (4) Hypothyroidism: Code(s): E03.9 - Hypothyroidism, unspecified Qualifiers: Hypothyroidism type: acquired Qualified Code(s): E03.9 - Hypothyroidism, unspecified Plan: Continue with thyroid medication will need blood work in the next 3 months (5) Generalized anxiety disorder: Code(s): F41.1 - Generalized anxiety disorder Plan: Continue with present medication (6) Gastroesophageal reflux disease: Code(s): K21.9 - Gastro-esophageal reflux disease without esophagitis Plan: Avoid the foods that causes that usually spicy foods, tomato products, juices, coffee, soda and foods that your sensitive to. After eating do not lie down, allow 3-4 hours before in lie down. And keep the head of bed above 30 degrees to avoid the acid from going up. (7) Lumbar degenerative disc disease: Comment: April [address]23 CT scan Code(s): M51.36 - Other intervertebral disc degeneration, lumbar region Plan: Discussion on chronic low back pain and strategies for relief. (8) Tubular adenoma of colon: Code(s): D12.6 - Benign neoplasm of colon, unspecified Orders: Orders Comprehensive Met. Panel Today E11.65 - Type 2 diabetes mellitus with hyperglycemia Hemoglobin A1c Today E11.65 - Type 2 diabetes mellitus with hyperglycemia Vitamin B12 and Folate Today E11.65 - Type 2 diabetes mellitus with hyperglycemia Creatinine Urine Today E11.65 - Type 2 diabetes mellitus with hyperglycemia Reticulocyte Count Today E11.65 - Type 2 diabetes mellitus with hyperglycemia AMB Hemoglobin A1c Today Z13.9 - Encounter for screening, unspecified Complete Blood Count Auto Diff Today E11.65 - Type 2 diabetes mellitus with hyperglycemia Free T4 (Free Thyroxine) Today E11.65 - Type 2 diabetes mellitus with hyperglycemia Thyroid Stimulating Hormone Today E11.65 - Type 2 diabetes mellitus with hyperglycemia Lipid Panel Today E11.65 - Type 2 diabetes mellitus with hyperglycemia, E78.00 - Pure hypercholesterolemia, unspecified Microalbumin, Random (w Creat) Today E11.65 - Type 2 diabetes mellitus with hyperglycemia IRON PROFILE Today E11.65 - Type 2 diabetes mellitus with hyperglycemia Ferritin Today E11.65 - Type 2 diabetes mellitus with hyperglycemia Medications: Changed From lisinopril 30 mg PO DAILY 90 days 90 tabs 3RF I10 - Essential (primary) hypertension To lisinopril 40 mg PO DAILY 90 days 90 tabs 3RF I10 - Essential (primary) hypertension Coding Level of Care Code Est Pt Level 4 (75051) Diagnoses Type 2 diabetes mellitus with hyperglycemia, without long-term current use of insulin E11.65 Diabetes mellitus intermediate manager insulin use: without intermediate manager use Essential hypertension I10 Hypercholesterolemia E78.00 Acquired hypothyroidism E03.9 Hypothyroidism type: acquired Generalized anxiety disorder F41.1 Gastroesophageal reflux disease K21.9 Lumbar degenerative disc disease M51.36 Tubular adenoma of colon D12.6
== END 2023-07-18 09:01 | disposition home or self-care (01) ==
PROVIDERS: PCP Internal Medicine; Visit Provider Internal Medicine
DX: E11.65 Type 2 diabetes mellitus with hyperglycemia (principal); I10 Essential (primary) hypertension; E78.00 Pure hypercholesterolemia, unspecified; E03.9 Hypothyroidism, unspecified; F41.1 Generalized anxiety disorder; K21.9 Gastro-esophageal reflux disease without esophagitis; M51.36 Other intervertebral disc degeneration, lumbar region
CPT/HCPCS: 83036; 99214

== ENCOUNTER 2023-12-04 10:27 | Outpatient (AMB) | payer MEDICARE, OTHER, SELFPAY ==
[2023-12-04 10:32] VITALS: BP 120/58; PULSE 58; O2SAT 99; BMI 26.5
--- NOTE | 2023-12-04 10:32 | MHC.OFFVIS ---
Vital Signs 12/04/23 10:32 Height 5 ft 11 in Weight 190 lb 0.615 oz BMI 26.5 BP 120/58 L Blood Pressure Location Rt brachial Position Sitting Pulse 58 Pulse Source Pulse Oximeter Pulse Oximetry (%) 99 Oxygen Delivery Method Room Air Intake Visit Reasons: 1 YR FUV. Moved up due to dysphagia concerns Intake Note: Maximus presents in office today for a scheduled 1 year FUV. CC: Pt had requested appt be moved up due to increasingly concerning dysphagia. Pt reports that they have been noticing episodes of dysphagia and difficulties with phlegm and reflux. Pt denies any SOB / Difficulty breathing. Pt has not noticed any specific trigger foods. Pt has noticed sx occurring with foods from eggs and lawson to hamburgers, etc. Pt is still taking all medications as intended. Pt is unsure if the pantoprazole is working as intended or not. Pt states that his episodes are infrequent, yet fairly severe. Phlebotomist Supervisor/Instructor Required: No Allergies oxycodone [OXYCODONE] Allergy (Unknown, Verified 12/10/23 08:49) ITCHING HPI HPI 1 YR FUV. Moved up due to dysphagia concerns: Details: LAST VISIT Dysphagia GERD (gastroesophageal reflux disease) Plan Patient no longer has trouble swallowing. Patient is taking pantoprazole daily and his symptoms are completely suppressed. Patient will be due to go for colonoscopy in February of 2024. I will see him in 1 year, sooner on as needed basis. Patient is agreeable to this plan and verbalizes understanding of instructions. He was given the opportunity to ask questions and all questions answered. TODAY'S VISIT Patient is here today for follow-up visit. He is due to go for colonoscopy in February, he is continuing to have dysphagia. Not every food that he eats will cause him having trouble swallowing. Occurs when he eats eggs lawson or hamburger.. Patient also reports mucus. We did endoscopy in 2020 that did not show any esophageal abnormalities gastritis and duodenitis was found. Patient was placed on pantoprazole and symptoms have improved. We also did modified barium swallow no special recommendations for patient given at this time. Patient reports occasional dyspepsia, denies odynophagia. CT of soft tissue and neck showed no acute processes nothing that would cause trouble swallowing. Patient denies any nausea or vomiting. Denies any issues with anesthesia in the past. Patient does not believe that he has any environmental allergies. Also reviewed the CT scan of the neck again and there was nasopharyngeal bogginess suggestive possible postnasal drip, that would explain the phlegm and mucus that patient is talking about. PENDING SALE TO [facility] Medical History Shortness of breath Colon cancer screening Family history of cerebral aneurysm HTN (hypertension) History of alcohol abuse Basal cell carcinoma (BCC) History of depression On beta zoe at home Hx of sigmoidoscopy Vitamin B1 deficiency Hypercholesterolemia Type 2 diabetes mellitus with hyperglycemia Chronic anemia Hypothyroidism Type 2 diabetes mellitus with diabetic polyneuropathy Essential hypertension Surgical History Status post right foot surgery Hx of colonoscopy Lipoma of right axilla Hx of tonsillectomy Hx of Achilles tendon repair Hx of carpal tunnel repair History of total right knee replacement H/O repair of rotator cuff Family History Father Throat cancer Diabetes Bladder cancer Lung cancer Mother No problems noted. 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 Current occupational exposures/hazards: No Cognitive needs: No Hearing needs: No Vision needs: Yes Review of Systems Const Denies weight gain and Denies weight loss ENT Reports no additional complaints, Reports dysphagia and Denies odynophagia Card Reports no additional complaints Resp Reports no additional complaints GI Denies abdominal pain, Denies belching, Denies melena, Denies bloating, Denies change in bowel habits, Reports dysphagia, Denies excessive flatus, Denies dyspepsia, Denies heartburn, Denies diarrhea, Denies loose stools, Denies nausea, Denies odynophagia and Denies vomiting Reports no additional complaints Musc Reports no additional complaints Neuro Reports no additional complaints Psych Reports no additional complaints Endo Reports no additional complaints Physical Exam Vital Signs: Last Vital Signs Pulse 58 12/04/23 10:32 BP 120/58 L 12/04/23 10:32 Pulse Ox 99 12/04/23 10:32 Oxygen Delivery Method Room Air 12/04/23 10:32 BMI result Body Mass Index 26.5 Const General: healthy appearing, no acute distress and well developed Nutritional Appearance: well nourished Orientation/consciousness: patient oriented x3 Resp Effort & Inspection: normal respiratory effort, able to speak in complete sentences, no tracheal deviation and symmetric chest movement Auscultation: clear to auscultation bilaterally Cardio Rate: regular rate GI Inspection: Yes normal to inspection and No distended Palpation (GI): Soft to palpation, not firm, nontender and No hepatosplenomegaly present Auscultation: normal bowel sounds General: Yes no CVA tenderness Back/Spine/Pelvis Back: no CVA tenderness Skin General skin exam: elasticity normal, turgor normal and dry skin Neuro General: patient oriented x3 Psych Appearance: grossly normal Mental Status: mental status grossly normal Assessment & Plan Assessment & Plan (1) Gastroesophageal reflux disease: Code(s): K21.9 - Gastro-esophageal reflux disease without esophagitis Category: Medical Qualifiers: Esophagitis presence: esophagitis presence not specified Qualified Code(s): K21.9 - Gastro-esophageal reflux disease without esophagitis (2) Dysphagia: Code(s): R13.10 - Dysphagia, unspecified Category: Medical Qualifiers: Dysphagia type: oropharyngeal phase Qualified Code(s): R13.12 - Dysphagia, oropharyngeal phase (3) Tubular adenoma of colon: Code(s): D12.6 - Benign neoplasm of colon, unspecified Category: Medical Plan Will send patient for upper GI with barium swallow. Will change his PPI to Nexium. Avoid dietary triggers and late night snacking. Staying upright for minimum 3 hours after meals discussed with patient. Patient was encouraged to eat small bites and avoid food that will cause his symptoms. Message sent to surgical schedulers to schedule patient for upper endoscopy and colonoscopy. Patient was encouraged to come appointment with his as patient is forgetful sometimes. Follow-up in the office in 3 months, sooner on as needed basis. He is agreeable to this plan and verbalizes understanding of instructions. He was given the opportunity to ask questions and all questions answered. Thank you for allowing me to participate in his care Orders: Orders [place] upper GI w Ba Swallow 12/04/23 R13.10 - Dysphagia, unspecified Medications: New esomeprazole magnesium (Nexium) 40 mg PO DAILY 30 caps 5RF K21.9 - Gastro-esophageal reflux disease without esophagitis Discontinued pantoprazole take one tablet half an hour before breakfast Discontinued Reason: Doctor's Order 40 mg PO DAILY 30 tabs 2RF K21.9 - Gastro-esophageal reflux disease without esophagitis Coding Level of Care Code Est Pt Level 3 (05780) Diagnoses Gastroesophageal reflux disease, unspecified whether esophagitis present K21.9 Esophagitis presence: esophagitis presence not specified Oropharyngeal dysphagia R13.12 Dysphagia type: oropharyngeal phase Tubular adenoma of colon D12.6 Time Spent (min) 30 Comment 20 minutes spent with patient and additional 10 minutes spent reviewing his records
== END 2023-12-04 11:00 | disposition home or self-care (01) ==
PROVIDERS: PCP Internal Medicine; Visit Provider Nurse Practitioner Family
DX: K21.9 Gastro-esophageal reflux disease without esophagitis (principal); R13.12 Dysphagia, oropharyngeal phase; D12.6 Benign neoplasm of colon, unspecified
CPT/HCPCS: 99213

== ENCOUNTER → 2023-12-04 10:27 | Outpatient (BNVA) | payer MEDICARE, OTHER, SELFPAY | PROVIDERS: PCP Internal Medicine; Visit Provider Nurse Practitioner Family | DX: K21.9 Gastro-esophageal reflux disease without esophagitis (principal); R13.12 Dysphagia, oropharyngeal phase; D12.6 Benign neoplasm of colon, unspecified | CPT/HCPCS: 99212 ==

== ENCOUNTER 2023-12-10 08:37 | Outpatient (AMB) | payer MEDICARE, OTHER, SELFPAY ==
[2023-12-10 08:39] VITALS: BP 124/60; PULSE 63; O2SAT 96; BMI 26.6
--- NOTE | 2023-12-10 08:39 | MHC.PC.OV ---
Vital Signs 12/10/23 08:39 Height 5 ft 11 in Weight 191 lb BMI 26.6 BP 124/60 Blood Pressure Location Lt brachial Position Sitting Pulse 63 Pulse Source Pulse Oximeter Pulse Oximetry (%) 96 Oxygen Delivery Method Room Air Intake Visit Reasons: DM/HTN Allergies oxycodone [OXYCODONE] Allergy (Unknown, Verified 12/10/23 08:49) ITCHING Tobacco use date assessed: 04/11/23 Fall risk assessment: No Falls in past year Last assessed Fall Risk: 12/10/23 Dental Screening Dental Screen Date: 07/18/23 HPI DM/HTN HPI Details 73-year-old overweight male with diabetes mellitus hypertension hypercholesterolemia hypothyroidism GERD generalized anxiety disorder and lumbar degenerative disc disease last seen in 07/29/2023. Patient's last colon test was done in 02/27/2021 and was advised to get it done 3 years after. With the anemia patient follows up with Hematology-Oncology normocytic anemia B12 deficiency since 2019 on vitamin B12 supplementation and [id number] iron supplementation iron studies are normal advised to stop iron. Patient was recently seen by Gastroenterology December 03 due to dysphagia advised to get a barium swallow. [facility] Medical History Shortness of breath Colon cancer screening Family history of cerebral aneurysm HTN (hypertension) History of alcohol abuse Basal cell carcinoma (BCC) History of depression On beta zoe at home Hx of sigmoidoscopy Vitamin B1 deficiency Hypercholesterolemia Type 2 diabetes mellitus with hyperglycemia Chronic anemia Hypothyroidism Type 2 diabetes mellitus with diabetic polyneuropathy Essential hypertension Surgical History Status post right foot surgery Hx of colonoscopy Lipoma of right axilla Hx of tonsillectomy Hx of Achilles tendon repair Hx of carpal tunnel repair History of total right knee replacement H/O repair of rotator cuff Family History Father Throat cancer Diabetes Bladder cancer Lung cancer Mother No problems noted. 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 How often do you have a drink containing alcohol?: Never 2. How many drinks containing alcohol do you have on a typical day when you are drinking?: 1 or 2 (0) 3. How often do you have six or more drinks on one occasion?: Never Total Score: 0 JOSE JUAN-7 AMB Questionnaire JOSE JUAN-7 Date JOSEJ UAN - 7 assessed: 04/11/23 Source: Developed by Drs. Ottoniel Solis, Michelle Evangelisat, Rubén Fritz and colleagues, with an educational nina from [employer]. Physical exam (Primary Care) Vital Signs: Last Vital Signs Pulse 63 12/10/23 08:39 BP 124/60 12/10/23 08:39 Pulse Ox 96 12/10/23 08:39 Oxygen Delivery Method Room Air 12/10/23 08:39 BMI result Body Mass Index 26.6 Tobacco/Smoking Status: Tobacco use Status Tobacco use date assessed 04/11/23 12/10/23 08:41 Patient Tobacco Use Status Former Tobacco user 12/10/23 08:41 Tobacco use type Cigarette 12/10/23 08:41 e-Cigarette/Vaping Use Never Used 12/10/23 08:41 Thrive Assessment: Date of Thrive Assessment Date Thrive assessed 04/11/23 12/10/23 08:41 Const General: alert; No acute distress Eyes Conjunctivae: conjunctivae normal Resp Auscultation: clear to auscultation bilaterally Cardio Rate: regular rate Rhythm: regular rhythm GI Inspection: Yes normal to inspection Extrem General: Yes normal to inspection and No edema Office Procedures Flu Questionnaire Does the patient have a severe egg allergy?: No Does the patient have severe life threatening allergies?: No Does the patient have a fever or illness today?: No Has the patient ever had Guillain-[place] Syndrome?: No Has the patient ever had any past reaction to a flu shot?: No Results AMB Hemoglobin A1c AMB Hemoglobin A1c 7.5 % Last Edit by QIANA Golden on 12/10/23 08:51 Immunizations Fluarix Triv 3314-8233 (PF) 45 mcg (15 mcg x 3)/0.5 mL IM syringe Performing Provider: Dea Simpson MD [facility] Administered by: QIANA Golden on 12/10/23 09:20 Dose Route Admin Location Dispensed Lot Number Expiration Date NDC Deputy Coroner Investigator 0.5 mL IM Left Deltoid 0.5 mL [id number] 09/07/24 [id number] [employer] VIS Given Date VIS Provided VIS Publication Date 12/10/23 Single Vaccine 20 Eligibility Eligibility Date Funding Source Not [facility] Eligible 12/10/23 Private Results Reviewed Results Reviewed: Laboratory Last Values Hgb A1c (Clinic) 7.5 % (4.0-6.0) H 12/10/23 08:26 Coding Level of Care Code Est Pt Level 4 (24328) Diagnoses Tubular adenoma of colon D12.6 Type 2 diabetes mellitus with hyperglycemia, without long-term current use of insulin E11.65 Diabetes mellitus termite renewal inspector insulin use: without termite renewal inspector use Hypercholesterolemia E78.00 Acquired hypothyroidism E03.9 Hypothyroidism type: acquired Generalized anxiety disorder F41.1 Essential hypertension I10 Oropharyngeal dysphagia R13.12 Dysphagia type: oropharyngeal phase Gastroesophageal reflux disease, unspecified whether esophagitis present K21.9 Esophagitis presence: esophagitis presence not specified
== END 2023-12-10 09:27 | disposition home or self-care (01) ==
PROVIDERS: PCP Internal Medicine; Visit Provider Internal Medicine
DX: D12.6 Benign neoplasm of colon, unspecified (principal); E11.65 Type 2 diabetes mellitus with hyperglycemia; E78.00 Pure hypercholesterolemia, unspecified; E03.9 Hypothyroidism, unspecified; F41.1 Generalized anxiety disorder; I10 Essential (primary) hypertension; R13.12 Dysphagia, oropharyngeal phase; K21.9 Gastro-esophageal reflux disease without esophagitis; Z23 Encounter for immunization

== ENCOUNTER → 2023-12-10 08:37 | Outpatient (BNVA) | payer MEDICARE, OTHER, SELFPAY | PROVIDERS: PCP Internal Medicine; Visit Provider Internal Medicine | DX: Z23 Encounter for immunization (principal); E11.65 Type 2 diabetes mellitus with hyperglycemia; D12.6 Benign neoplasm of colon, unspecified; E78.00 Pure hypercholesterolemia, unspecified; E03.9 Hypothyroidism, unspecified; F41.1 Generalized anxiety disorder; R13.12 Dysphagia, oropharyngeal phase; I10 Essential (primary) hypertension; K21.9 Gastro-esophageal reflux disease without esophagitis | CPT/HCPCS: 83036; 90471; 90656; 99212 ==

== ENCOUNTER 2023-12-11 06:25 | Outpatient (REF) | payer MEDICARE, OTHER, SELFPAY ==
[2023-12-11 06:55] LABS: MANUAL DIFF FLAG NO
[2023-12-11 07:55] LABS: Estimated Average Glucose 146 mg/dL; Hemoglobin A1C 154.0904 umol/L; Hemoglobin A1c % 6.7 % (<6.0); Total Hemoglobin (HGBA1C) 3132.7539 umol/L
[2023-12-11 07:59] LABS: Basophils Absolute Auto 0.1 X10*3/uL (0.0-0.2); Basophils Percent Auto 0.9 % (0-2); Eosinophils Absolute Auto 0.3 X10*3/uL (0.0-0.4); Hematocrit 36.4 % (42.0-52.0); Hemoglobin 12.3 g/dl (14.0-18.0); Imm Gran Abs Auto 0.03 X10*3/uL (0.00-0.03); Imm Gran Pct Auto 0.4 % (0.0-0.4); Immature Retic Fraction 11.8 % (2.3-13.4); Lymphocytes Absolute Auto 2.1 X10*3/uL (1.2-4.9); Lymphocytes Percent Auto 31.1 % (20-40); Mean Corpuscular HGB Conc 33.8 g/dl (31.0-36.0); Mean Corpuscular Hemoglobin 32.1 pg (27.0-33.0); Mean Platelet Volume 9.7 fL (9.4-12.4); Monocytes Absolute Auto 0.7 X10*3/uL (0.1-1.2); Monocytes Percent Auto 10.4 % (2-11); Neutrophils Absolute Auto 3.6 x10*3/uL (2.0-8.3); Neutrophils Percent Auto 53.2 % (45-73); Platelet Count 275 X10*3/uL (160-400); Red Blood Count 3.83 X10*6/uL (4.60-5.80); Retic HGB Equivalent 35.6 pg (30.0-35.0); Reticulocyte Percent 2.4 % (0.5-1.8); Reticulocytes Absolute 0.093 X10*6/uL (0.026-0.095); White Blood Count 6.8 X10*3/uL (4.8-10.8)
[2023-12-11 08:22] LABS: Creatinine Urine 134.54 mg/dL; Microalbum/Creatinine Ratio Ur 6.6 ug/mg cr (<30)
[2023-12-11 08:29] LABS: Alanine Aminotransferase 32 U/L (0-40); Albumin Level 4.1 g/dL (3.5-5.0); Alkaline Phosphatase 59 U/L (39-117); Anion Gap 12 (12-20); Aspartate Amino Transferase 26 U/L (5-37); Bilirubin Total 0.4 mg/dL (0.0-1.0); Blood Urea Nitrogen 25 mg/dL (9-16); Calcium 9.3 mg/dL (8.4-10.2); Carbon Dioxide 28 mmol/L (22-29); Chloride 103 mmol/L (96-108); Cholesterol 105 mg/dL (<200); Estimated Glomerular Filt Rate > 60; Glucose Random 121 mg/dL (60-115); HDL Cholesterol 39 mg/dL (>40); Iron 75 mcg/dL (45-160); LDL Cholesterol Calculated 48 mg/dL (<100); Percent Iron Saturation 29 % (15-50); Potassium 4.5 mmol/L (3.3-5.1); Sodium 138 mmol/L (135-145); Total Iron Binding Capacity 257 mcg/dL (228-428); Total Protein 6.9 g/dL (6.5-8.0); Triglycerides 91 mg/dL (<150); Unsaturated Iron Binding 182 ug/dL
[2023-12-11 08:45] LABS: Ferritin 183 ng/mL (20-250); Free T4 (Free Thyroxine) 1.13 ng/dL (0.71-1.85)
[2023-12-11 08:56] LABS: Folate 14.8 ng/mL (> or = 4.0); Vitamin B12 479 pg/mL (200-900)
== END 2023-12-11 06:26 | disposition home or self-care (01) ==
LOC: HO.LAB 06:25
PROVIDERS: PCP Internal Medicine; Visit Provider Internal Medicine
DX: E11.65 Type 2 diabetes mellitus with hyperglycemia (principal); E78.00 Pure hypercholesterolemia, unspecified
CPT/HCPCS: 36415; 80053; 80061; 82043; 82570; 82607; 82728; 82746; 83036; 83540; 84439; 84443; 85025; 85045

== ENCOUNTER 2024-02-20 08:54 | Outpatient (REF) | payer MEDICARE, OTHER, SELFPAY ==
--- NOTE | ~2024-02-20 | FL_ITS ---
EXAMINATION: XR FLUOROSCOPY UPPER GI WITH AIR CLINICAL INFORMATION: Dysphagia COMPARISON: None TECHNIQUE: Fluoroscopic air contrast upper GI examination was performed utilizing standard techniques with thin and thick barium and effervescent granules. Numerous spot images were obtained. FINDINGS: Lateral cine images of the oropharynx and hypopharynx demonstrate normal swallow mechanism with normal epiglottic inversion and soft palate elevation. No tracheal penetration, glottic or subglottic aspiration identified. No nasopharyngeal reflux present. A tiny Zenker's diverticulum is present. There was no significant cricopharyngeal achalasia. Dual and single contrast images of the esophagus demonstrate a normal caliber and contour. There is felinization of the esophageal mucosa. No evidence of stricture, mass, or ulcerations identified. Esophageal peristalsis is mildly disorganized. Small type I hiatal hernia is present. No significant gastroesophageal reflux was seen during the course of the examination and on reflux views. Dual contrast and single contrast images of the stomach demonstrated a normal contour. Evaluation of the gastric mucosa is limited due to underdistention of stomach from poor tolerance of effervescent granules. No masses are present. Contrast freely passed into the gastric antrum and duodenal bulb without delay. Single and air-contrast images of the duodenal bulb demonstrate no abnormality. The duodenal sweep has a normal appearance, course, and mucosal fold appearance. The imaged proximal jejunum has a normal fold pattern and caliber. FLUOROSCOPY TIME: 3 minutes 34 seconds Number of Spot Images: 8 Number of Cine: 13 DOSE AREA PRODUCT: 2112 uGy-m2 (microgray-meter squared) FL/FL upper GI w Ba Swallow IMPRESSION: 1. Tiny Zenker's diverticulum. 2. Felinization of the esophageal mucosa. This is a benign finding associated with chronic gastroesophageal reflux. Although reflux was not seen during this examination, suspect at least moderate gastroesophageal reflux. 3. Mildly disorganized esophageal peristalsis. 4. Small type I hiatal hernia. 5. Limited evaluation of the gastric mucosa due to underdistention of stomach from poor tolerance of the effervescent granules. This procedure was performed by Soy Wright PA-C, and supervised by Dr. Garza Electronically signed by: Kendrick Garza MD 02/20/2024 04:32 PM [facility]
== END 2024-02-20 08:55 | disposition home or self-care (01) ==
LOC: HO.XRAY 08:54
PROVIDERS: PCP Internal Medicine; Visit Provider Nurse Practitioner Family
DX: R13.10 Dysphagia, unspecified (principal)
CPT/HCPCS: 74240

== ENCOUNTER → 2024-02-20 09:05 | Outpatient (BNV) | payer MEDICARE, OTHER, SELFPAY | PROVIDERS: PCP Internal Medicine; Visit Provider Physician Assistant Surgical | DX: R13.10 Dysphagia, unspecified (principal) | CPT/HCPCS: 74246 ==

== ENCOUNTER 2024-03-09 11:02 | Outpatient (AMB) | payer MEDICARE, OTHER, SELFPAY ==
--- OUTSIDE RECORDS SUMMARY | 2024-03-09 11:06 | XMS_ITS ---
Author Organization [facility] Address [address] [place] [address] Care Team Providers Care Tearoom Host Name Role Phone Dea Simpson Primary Care Provider UnavailBarbara Blum Unavailable [phone] Saroj Us Unavailable [phone] Allergies Allergen (clinical drug ingredient) Drug/Non Drug [...] 024 Encounters Encounter Location Date Provider Diagnosis [facility] [place] [address] [place] [address] 03/27/2023 Saroj Us Type 2 diabetes mellitus [...] Provider Name:Barbara Hidalgo grace, 03/16/2024 09:15:00 AM, [address] [place] [address], [phone], Procedure Notes * Category Sub-Category Detail Notes [...] as necessary. Patient chooses, no pharmaceutical tx (00739) Keratoma Treatment Parring or Cutting o f Benign Hyperkeratotic Lesion(s) 45160 (2-4 Lesions) - The Benign hyperkeratotic lesions, as described above were pared, and/or cut utilizing a sterile #15 blade, tissue nippers, and/or dremel Progress Notes * Maximus CARTER HDOB: [birth year] (72 yo M)Acc No.[id number]:03/27/2023 Progress Note Patient:?Maximus Carter H Provider:?Saroj Us DPM :1950???Age:72 Y???Sex:Male Paul e:03/27/2023 Address:[address] [place] [address], [place], [place] Pcp:Dea Simpson Subjective: * Chief Complaints: * [...] yes, occasional. ?Marital status: . 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 * Medications:?TakingVitamin D 3 Atorvastatin Calcium 40 [...] as necessary. Patient chooses, no pharmaceutical tx (96300).?Keratoma Treatment:?Parring or Cutting of Benign Hyperkeratotic Lesion(s)?45035 (2-4 Lesions) - The Benign hyperkeratotic lesions, as described above were pared, and/or cut utilizing a sterile #15 blade, tissue nippers, and/or dremel.? * Procedure Codes:?14493 DEBRI DE NAIL, 6 OR MORE, Modifiers: XS 98829 TRIM SKIN LESIONS, 2 TO 4, Modifiers: XS * Follow Up:?4 Months * Images: * Sign off status: Completed true * Provider:?Saroj Us DPM Date:? 024 Generated for Mariama ames/Zaira/Rosales on:?03/09/2024 11:06 AM EST History and Physical Notes * [...] Eye Exam:: no retin opathy Vascular DP PULSES (B): 0/4, B/L PT PULSES (B): 1/4, B/L CAPILLARY FILL TIME: 3 secs. per digit. B/L TEMPERTURE GRADIENT (C): normal, B/L TROPHIC CONDITION-TEXTURE/ELASTICITY/TUR GOR/HAIR GROWTH (B): normal, B/L EDEMA (C): absent, B/L TELANGECTASIA: absent, B/L PIGMENTATION: normal, B/L Nails NAILS are: Elongated, overg rown, dystrophic, lytic, greater than 3mm thick, discolored and friable with crumbly malodorous subungual debris, with dull to no pain on palpation due to neuropathy, 1-5 B/L
--- OUTSIDE RECORDS SUMMARY | 2024-03-09 11:06 | XMS_ITS ---
Author Organization [facility] Address [address] [place] [address] Care Team Providers Care Pharmacy Operations Manager Name Role Phone Dea Simpson Primary Care Provider UnavailBarbara Blum Unavailable [phone] Saroj Us Unavailable [phone] Allergies Allergen (clinical drug ingredient) Drug/Non Drug [...] other tobacco user? No Vital Signs Height 4nq58cd in 11/13/2023 Weight 180 lbs 11/13/2023 BMI 25.1 kg/m2 11/13/2023 Encounters Encounter Location Date Provider Diagnosis [facility] [address] [place] [address] 11/13/2023 Saroj Us Type 2 diabetes mellitus [...] Name:Barbara Hidalgo grace, 03/16/2024 09:15:00 AM, [address] [place], [address], Procedure Notes * Category Sub-Category Detail Notes [...] as necessary. Patient chooses, no pharmaceutical tx (44058) Keratoma Treatment Parring or Cutting o f Benign Hyperkeratotic Lesion(s) 06480 (2-4 Lesions) - The Benign hyperkeratotic lesions, as described above were pared, and/or cut utilizing a sterile #15 blade, tissue nippers, and/or dremel Progress Notes * Maximus CARTER HDOB: [birth year] (73 yo M)Acc No.[id number]:11/13/2023 Progress Note Patient:?Horace Maximus Dodie Provider:?Saroj Us DPM :1950???Age:73 Y???Sex:Male [place] e:11/13/2023 Address:[address] [place], [place] [id number] Pcp:Dea Simpson Subjective: * Chief Complaints: * [...] yes, occasional. ?Marital status: . ?Occupation: Retired- [employer]. * Medications:?TakingVitamin D 3 Atorvastatin Calcium 40 [...] - Side Effectsyes[Allergies Verified] Objective: * Vitals:?Ht: 8zi27rn, Wt:180, BMI:25.1, Shoe size: 10.5, BS: not [...] as necessary. Patient chooses, no pharmaceutical tx (05334).?Keratoma Treatment:?Parring or Cutting of Benign Hyperkeratotic Lesion(s)?65381 (2-4 Lesions) - The Benign hyperkeratotic lesions, as described above were pared, and/or cut utilizing a sterile #15 blade, tissue nippers, and/or dremel.? * Procedure Codes:?48020 DEBRI DE NAIL, 6 OR MORE, Modifiers: XS 31863 TRIM SKIN LESIONS, 2 TO 4, Modifiers: [...]
--- OUTSIDE RECORDS SUMMARY | 2024-03-09 11:06 | XMS_ITS ---
Author Organization [facility] Address [address] [place] [address] Care Team Providers Care [employer] Name Role Phone Dea Simpson Primary Care Provider UnavailBarbara Blum Unavailable [phone] Saroj Us Unavailable [phone] Allergies Allergen (clinical drug ingredient) Drug/Non Drug [...] 024 Encounters Encounter Location Date Provider Diagnosis [facility] [place] [address] [place] [address] 07/24/2023 Saroj Us Type 2 diabetes mellitus [...] Provider Name:Barbara Hidalgo grace, 03/16/2024 09:15:00 AM, [address] [place] [address], [phone], Procedure Notes * Category Sub-Category Detail Notes [...] as necessary. Patient chooses, no pharmaceutical tx (80363) Keratoma Treatment Parring or Cutting o f Benign Hyperkeratotic Lesion(s) 31462 (2-4 Lesions) - The Benign hyperkeratotic lesions, as described above were pared, and/or cut utilizing a sterile #15 blade, tissue nippers, and/or dremel Progress Notes * Maximus CARTER HDOB: [birth year] (72 yo M)Acc No.[id number]:07/24/2023 Progress Note Patient:?Maximus Carter H Provider:?Saroj Us DPM :1950???Age:72 Y???Sex:Male [place] e:07/24/2023 Address:[address] [place] [address], [facility] Pcp:Dea Simpson Subjective: * Chief Complaints: * [...] yes, occasional. ?Marital status: . 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 * Medications:?TakingVitamin D 3 Atorvastatin Calcium 40 [...] as necessary. Patient chooses, no pharmaceutical tx (61034).?Keratoma Treatment:?Parring or Cutting of Benign Hyperkeratotic Lesion(s)?76313 (2-4 Lesions) - The Benign hyperkeratotic lesions, as described above were pared, and/or cut utilizing a sterile #15 blade, tissue nippers, and/or dremel.? * Procedure Codes:?91790 DEBRI DE NAIL, 6 OR MORE, Modifiers: XS 88431 TRIM SKIN LESIONS, 2 TO 4, Modifiers: [...]
--- OUTSIDE RECORDS SUMMARY | 2024-03-09 11:06 | XMS_ITS | Patient Health Record ---
Author Organization [facility] Catie hern[facility]dez [place] Address [address] [facility] [address] Care Team Providers Care Retail Security Professional Name Role Phone Dea Simpson Primary Care Provider Barbara Crawford Unavailable [phone] Saroj Us Unavailable [phone] Allergies Allergen (clinical drug ingredient) Drug/Non Drug [...] W/U Status Risk Notes Problem Ataxic gait (56391340) Ataxic gait (R26.0) Active confirmed Problem [id number] Other hammer toe(s) (acquired), right foot (M20.41) Active confirmed Problem Acquired hammer toe of left foot (0040344274284280 ) Other hammer toe(s) (acquired), left foot (M20.42) Active confirmed Problem Acquired hammer toe of right foot (6719497726303452 ) Other hammer toe(s) (acquired), right foot (M20.41) Active confirmed Problem Acquired hammer toe of left foot (4192507126777705 ) Other hammer toe(s) (acquired), left foot (M20.42) Active confirmed Problem Polyneuropathy due to type 2 diabetes mellitus (468371497) Type 2 diabetes mellitus with diabetic polyneuropathy (E11.42) Active confirmed Problem Polyneuropathy due to diabetes mellitus type I (649775999) Type 1 diabetes mellitus with diabetic polyneuropathy (E10.42) Active confirmed Vital Signs Blood pressure diastolic 85 mm Hg 07/24/2023 Height 1iv20od in 11/13/2023 Blood pressure systolic 120 mm Hg 07/24/2023 Weight 180 lbs 11/13/2023 BMI 25.1 kg/m2 11/13/2023 Encounters Encounter Location Date Provider Diagnosis [address] [address] 03/27/2023 Saroj Us Type 2 diabetes mellitus with diabetic polyneuropathy E11.42 ; Pain in right toe(s) M79.674 ; Tinea unguium B35.1 ; Pain in left toe(s) M79.675 ; Skin disease L98.9 ; Other hammer toe(s) (acquired), left foot M20.42 ; Other hammer toe(s) (acquired), right foot M20.41 and Ataxic gait R26.[address] [address] 07/24/2023 Saroj Us Type 2 diabetes mellitus with diabetic polyneuropathy E11.42 ; Pain in right toe(s) M79.674 ; Tinea unguium B35.1 ; Pain in left toe(s) M79.675 ; Skin disease L98.9 ; Other hammer toe(s) (acquired), left foot M20.42 ; Other hammer toe(s) (acquired), right foot M20.41 and Ataxic gait R26.[address] [address] 11/13/2023 Saroj Us Type 2 diabetes mellitus [...] X ray : Foot, right 3V 06/15/2020 10691-CUNU SKIN LESIONS, 2 TO 4 03/16/19 21 38779-XROX SKIN LESIONS, 2 TO 4 06/16/19 21 91660-UDZS SKIN LESIONS, 2 TO 4 09/29/19 21 91281-VLOE SKIN LESIONS, 2 TO 4 01/05/20 21 58432-DBZV SKIN LESIONS, 2 TO 4 03/30/19 90460- Removal of Foreign Body, Subcut 0 11/19/2022 Next Appt Details Provider Name:Barbara Hidalgo grace, 03/16/2024 09:15:00 AM, [address] [place] [address], [phone], Insurance Providers Payer Name Payer Address Payer Phone Subscriber Number Group Number Insured Name Patient Relationship to Insured Coverage Start Date Coverage End Date Medicare National Govt [facility] [address] [facility] [place] [address] [id number] Maximus Vu Self - patient is the insured [facility] [address] [place] [address] [id number] Maximus Vu Self - patient is the insured Medical (General) History Medical History History ICD Code Back,Hip,and Knee pain Depression High blood pressure thyroid Joint implants/screws type II diabetes covid-19 Anemia Hypothyroidism Hyperlipidemia Pain Surgical History Surgery Date(Month/Year) achilles tendon repair knee replacement shoulder surgery carpal tunnel surgery Flex ten R 03/30/21
[2024-03-09 11:17] VITALS: BP 122/60; PULSE 66; O2SAT 99; BMI 26.3
--- NOTE | 2024-03-09 11:17 | A.OFFVIS_ITS ---
Vital Signs 03/09/24 11:17 Height 5 ft 11 in Weight 188 lb 11.451 oz BMI 26.3 BP 122/60 Blood Pressure Location Rt brachial Position Sitting Pulse 66 Pulse Source Pulse Oximeter Pulse Oximetry (%) 99 Oxygen Delivery Method Room Air Intake Visit Reasons: 3 month follow up Intake Note: ESTABLISHED PATIENT Maximus presents in office today for a scheduled 3 mos FUV. Meds and Allergies reviewed? Y No recent or relevant surgeries? None; Did have BA FL Any significant concerns or new changes? Pt would like to have R ear examined if possible. No GI concerns. Pharmacy verified? [facility] Allergies oxycodone [OXYCODONE] Allergy (Unknown, Verified 03/09/24 11:17) ITCHING HPI HPI 3 month follow up: Details: LAST VISIT: Gastroesophageal reflux disease Dysphagia Tubular adenoma of colon Plan Will send patient for upper GI with barium swallow. Will change his PPI to Nexium. Avoid dietary triggers and late night snacking. Staying upright for minimum 3 hours after meals discussed with patient. Patient was encouraged to eat small bites and avoid food that will cause his symptoms. Message sent to surgical schedulers to schedule patient for upper endoscopy and colonoscopy. Patient was encouraged to come appointment with his as patient is forgetful sometimes. Follow-up in the office in 3 months, sooner on as needed basis. He is agreeable to this plan and verbalizes understanding of instructions. He was given the opportunity to ask questions and all questions answered. ? Thank you for allowing me to participate in his care Orders Orders [place] upper GI w Ba Swallow 12/04/23 R13.10 Medications New esomeprazole magnesium (Nexium) 40 mg PO DAILY 30 caps 5RF K21.9 Discontinued pantoprazole take one tablet half an hour before breakfast Discontinued Reason: Doctor's Order 40 mg PO DAILY 30 tabs 2RF K21.9 TODAY'S VISIT Patient is here today for follow-up and to discuss upper GI series with barium swallow results. Patient is accompanied by his . Patient reports that he is feeling little better since last visit, however he still reports occasional trouble swallowing specially rice or food that is more sticky. He does admit that he not always drinks liquids when he is eating food like that. Upper GI series showed disorganized peristalses and moderate reflux. He is doing better with Nexium. Denies any nausea or vomiting. Reports that his blood sugars are controlled for the most part. Patient is taking Mounjaro for blood sugar and feels like it is helping him quite a bit. Patient denies any melena, hematochezia, unintentional weight loss or ribbon like stools. Patient had colonoscopy in 2020 and recommendation was for 3 year follow-up and he is due to go for another procedure. [facility] Medical History Shortness of breath Colon cancer screening Family history of cerebral aneurysm HTN (hypertension) History of alcohol abuse Basal cell carcinoma (BCC) History of depression On beta zoe at home Hx of sigmoidoscopy Vitamin B1 deficiency Hypercholesterolemia Type 2 diabetes mellitus with hyperglycemia Chronic anemia Hypothyroidism Type 2 diabetes mellitus with diabetic polyneuropathy Essential hypertension Surgical History Status post right foot surgery Hx of colonoscopy Lipoma of right axilla Hx of tonsillectomy Hx of Achilles tendon repair Hx of carpal tunnel repair History of total right knee replacement H/O repair of rotator cuff Family History Father Throat cancer Diabetes Bladder cancer Lung cancer Mother No problems noted. 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 Current occupational exposures/hazards: No Cognitive needs: No Hearing needs: No Vision needs: Yes Review of Systems Const Denies weight gain and Denies weight loss ENT Reports no additional complaints, Reports dysphagia and Denies odynophagia Card Reports no additional complaints Resp Reports no additional complaints GI Denies abdominal pain, Denies belching, Denies melena, Denies bloating, Denies change in bowel habits, Reports dysphagia, Denies excessive flatus, Denies dyspepsia, Denies heartburn, Denies diarrhea, Denies loose stools, Denies nausea, Denies odynophagia and Denies vomiting Reports no additional complaints Musc Reports no additional complaints Neuro Reports no additional complaints Psych Reports no additional complaints Endo Reports no additional complaints Physical Exam Vital Signs: Last Vital Signs Pulse 66 03/09/24 11:17 BP 122/60 03/09/24 11:17 Pulse Ox 99 03/09/24 11:17 Oxygen Delivery Method Room Air 03/09/24 11:17 BMI result Body Mass Index 26.3 Const General: healthy appearing, no acute distress and well developed Nutritional Appearance: well nourished Orientation/consciousness: patient oriented x3 Resp Effort & Inspection: normal respiratory effort, able to speak in complete sentences, no tracheal deviation and symmetric chest movement Auscultation: clear to auscultation bilaterally Cardio Rate: regular rate GI Inspection: Yes normal to inspection and No distended Palpation (GI): Soft to palpation, not firm, nontender and No hepatosplenomegaly present Auscultation: normal bowel sounds General: Yes no CVA tenderness Back/Spine/Pelvis Back: no CVA tenderness Skin General skin exam: elasticity normal, turgor normal and dry skin Neuro General: patient oriented x3 Psych Appearance: grossly normal Mental Status: mental status grossly normal Results Reviewed Results Reviewed: IMPRESSION: 1. Tiny Zenker's diverticulum. 2. Felinization of the esophageal mucosa. This is a benign finding associated with chronic gastroesophageal reflux. Although reflux was not seen during this examination, suspect at least moderate gastroesophageal reflux. 3. Mildly disorganized esophageal peristalsis. 4. Small type I hiatal hernia. 5. Limited evaluation of the gastric mucosa due to underdistention of stomach from poor tolerance of the effervescent granules. Assessment & Plan Assessment & Plan (1) Gastroesophageal reflux disease: Code(s): K21.9 - Gastro-esophageal reflux disease without esophagitis Category: Medical Qualifiers: Esophagitis presence: esophagitis presence not specified Qualified Code(s): K21.9 - Gastro-esophageal reflux disease without esophagitis (2) Dysphagia: Code(s): R13.10 - Dysphagia, unspecified Category: Medical Qualifiers: Dysphagia type: oropharyngeal phase Qualified Code(s): R13.12 - Dysphagia, oropharyngeal phase (3) Tubular adenoma of colon: Code(s): D12.6 - Benign neoplasm of colon, unspecified Category: Medical Plan Patient can continue taking Nexium in the morning half an hour before breakfast. Encouraged patient to eat slowly and smaller meals. Make sure that when he eats something like rice he drinks fluid after each bite. Patient can take magnesium at night time which might help him with some spasms. Patient admits that he also has leg cramps during the night magnesium might also help with that. Patient will return to the office in 2 months to discuss colonoscopy and will send him for upper endoscopy as well. Message sent to surgical schedulers to book procedure for patient. Both patient and his are agreeable to plan of care and verbalizes understanding of instructions. They were given the opportunity to ask questions and all questions answered. Thank you for allowing me to participate in his care Medications: New magnesium oxide 400 mg PO BEDTIME 30 caps 2RF K59.04 - Chronic idiopathic constipation Coding Level of Care Code Est Pt Level 4 (67597) Diagnoses Gastroesophageal reflux disease, unspecified whether esophagitis present K21.9 Esophagitis presence: esophagitis presence not specified Oropharyngeal dysphagia R13.12 Dysphagia type: oropharyngeal phase Tubular adenoma of colon D12.6 Time Spent (min) 35 Comment 20 minutes spent with patient and additional 15 minutes spent reviewing his records
== END 2024-03-09 12:00 | disposition home or self-care (01) ==
PROVIDERS: PCP Internal Medicine; Visit Provider Nurse Practitioner Family
DX: K21.9 Gastro-esophageal reflux disease without esophagitis (principal); R13.12 Dysphagia, oropharyngeal phase; D12.6 Benign neoplasm of colon, unspecified
CPT/HCPCS: 99214

== ENCOUNTER → 2024-03-09 11:02 | Outpatient (BNVA) | payer MEDICARE, OTHER, SELFPAY | PROVIDERS: PCP Internal Medicine; Visit Provider Nurse Practitioner Family | DX: K21.9 Gastro-esophageal reflux disease without esophagitis (principal); R13.12 Dysphagia, oropharyngeal phase; D12.6 Benign neoplasm of colon, unspecified | CPT/HCPCS: 99212 ==

== ENCOUNTER 2024-03-27 08:15 | Outpatient (AMB) | payer MEDICARE, OTHER, SELFPAY ==
[2024-03-27 08:17] VITALS: BP 122/68; PULSE 56; O2SAT 89; BMI 26.1
--- NOTE | 2024-03-27 08:17 | MHC.PC.OV ---
Vital Signs 03/27/24 08:17 Height 5 ft 11 in Weight 187 lb BMI 26.1 BP 122/68 Blood Pressure Location Lt brachial Position Sitting Pulse 56 Pulse Source Pulse Oximeter Pulse Oximetry (%) 89 L Oxygen Delivery Method Room Air Intake Visit Reasons: 3mth f/u Allergies oxycodone [OXYCODONE] Allergy (Unknown, Verified 03/27/24 08:18) ITCHING Tobacco use date assessed: 03/27/24 Fall risk assessment: 2 + Falls in past year Last assessed Fall Risk: 03/27/24 Dental Screening Dental Screen Date: 03/27/24 Did you have a dental visit in the last 12 months?: Yes Did you have a dental problem in the last 6 months where you did not have access to dental care?: No Was dental information given to patient?: Patient has dentist HPI 3mth f/u HPI Details The patient is a 73-year-old male presenting for a routine examination to manage his existing conditions, including Gastroesophageal Reflux Disease (GERD), anemia of chronic disease, and Type 2 Diabetes Mellitus. The GERD has reportedly led to thickening within the esophagus, identified in previous testing, indicating longstanding reflux. Dietary adjustments, such as avoiding spicy foods and tomato products, have been recommended to the patient as certain foods exacerbate the reflux. The patient monitors his food intake carefully to prevent worsening of symptoms, preferring to consume potentially triggering foods earlier in the day. The patient's diabetes is presently well-controlled, with a noted improvement in HbA1c from a previous 6.7% to a current 6.2%, suggesting enhanced glycemic control. He adheres to a regimen that includes consuming health-conscious meals rich in fruits and protein, which his son-in-law helped him initiate. The patient's anemia has remained stable and is attributed to chronic disease, with previous laboratory results reflecting consistent low-level anemia over the past three to four years. The patient was advised that this condition is primarily stable and does not require further action at the current time. He reports experiencing leg cramps and sleeping difficulties, noting an inconsistent sleep schedule. Although advised on magnesium supplementation to aid in leg cramps, the patient indicates they persist despite supplementation. He maintains hydration but acknowledges a habit of insufficient water intake. [facility] Medical History Shortness of breath Colon cancer screening Family history of cerebral aneurysm HTN (hypertension) History of alcohol abuse Basal cell carcinoma (BCC) History of depression On beta zoe at home Hx of sigmoidoscopy Vitamin B1 deficiency Hypercholesterolemia Type 2 diabetes mellitus with hyperglycemia Chronic anemia Hypothyroidism Type 2 diabetes mellitus with diabetic polyneuropathy Essential hypertension Surgical History Status post right foot surgery Hx of colonoscopy Lipoma of right axilla Hx of tonsillectomy Hx of Achilles tendon repair Hx of carpal tunnel repair History of total right knee replacement H/O repair of rotator cuff Family History Father Throat cancer Diabetes Bladder cancer Lung cancer Mother No problems noted. 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 1. Little interest or pleasure in doing things: not at all 2. Feeling down, depressed, or hopeless: not at all 3. Trouble falling or staying asleep, or sleeping too much: not at all 4. Feeling tired or having little energy: not at all 5. Poor appetite or overeating: not at all 6. Feeling bad about yourself - or that you are a failure or have let yourself or your family down: not at all 7. Trouble concentrating on things, such as reading the newspaper or watching television: not at all 8. Moving or speaking so slowly that other people could have noticed. Or the opposite - being so fidgety or restless that you have been moving around a lot more than usual: not at all 9. Thoughts that you would be better off or of hurting yourself in some way: not at all Total score: 0 Depression Screening Interpretation: Negative Depression Screening Done: Yes Source: Developed by Drs. Ottoniel Solis, Michelle Evangelista, Rubén Fritz and colleagues, with an educational nina from [employer]. Thrive Questionnaire Date Thrive assessed: 03/27/24 I am a: Patient What is your living situation today?: I have a steady place to live Within the past 12 months, did the food you bought not last and you didn't have the money to get more?: Never true Within the past 12 months, did you worry whether your food would run out before you got money to buy more?: Never true Do you have trouble paying for medicines?: No Do you have trouble getting transportation to medical appointments?: No Do you have trouble paying your heating and electricity bill?: No Do you have trouble taking care of your child, family member or friend?: No Do you have trouble with day-to-day activities such as bathing, preparing meals, shopping, managing finances, etc.?: No Are you currently unemployed and looking for a job?: No Are you interested in more education?: No Currently or been in a relationship where the following occur: No concerns reported THRIVE Score: 0 AUDIT C Alcohol Use Questionnaire (AUDIT-C) 1. How often do you have a drink containing alcohol?: Never 2. How many drinks containing alcohol do you have on a typical day when you are drinking?: 1 or 2 (0) 3. How often do you have six or more drinks on one occasion?: Never Total Score: 0 JOSE JUAN-7 AMB Questionnaire JOSE JUAN-7 Date JOSE JUAN - 7 assessed: 03/27/24 Feeling nervous, anxious, or on edge: 0 = Not at all Not being able to stop or control worryin = Not at all Worrying too much about different things: 0 = Not at all Trouble relaxin = Not at all Being so restless that it is hard to sit still: 0 = Not at all Becoming easily annoyed or irritable: 0 = Not at all Feeling afraid as if something awful might happen: 0 = Not at all Total JOSE JUAN-7 score (0-4 normal; 5-9 mild; 10-14 moderate; 15-21 severe): 0 Source: Developed by Drs. Ottoniel Solis, Michelle Evangelista, Rubén Fritz and colleagues, with an educational nina from [employer]. Physical exam (Primary Care) Vital Signs: Last Vital Signs Pulse 56 03/27/24 08:17 BP 122/68 03/27/24 08:17 Pulse Ox 89 L 03/27/24 08:17 Oxygen Delivery Method Room Air 03/27/24 08:17 BMI result Body Mass Index 26.1 Tobacco/Smoking Status: Tobacco use Status Tobacco use date assessed 03/27/24 03/27/24 08:26 Patient Tobacco Use Status Former Tobacco user 03/27/24 08:26 Tobacco use type Cigarette 03/27/24 08:26 e-Cigarette/Vaping Use Never Used 03/27/24 08:26 PHQ-9: PHQ-9 Score PHQ-9: Total score 0 03/27/24 08:32 Depression Screening Interpretation: Negative Thrive Assessment: Date of Thrive Assessment Date Thrive assessed 03/27/24 03/27/24 08:26 Currently or been in a relationship where the following occur: No concerns reported Const General: alert; No acute distress Eyes Conjunctivae: conjunctivae normal Resp Auscultation: clear to auscultation bilaterally Cardio Rate: regular rate Rhythm: regular rhythm GI Inspection: Yes normal to inspection Extrem General: Yes normal to inspection and No edema Results AMB Hemoglobin A1c AMB Hemoglobin A1c 6.2 % Last Edit by Caty Gar CMA on 03/27/24 08:33 Results Reviewed Results Reviewed: Laboratory Last Values Hgb A1c (Clinic) 6.2 % (4.0-6.0) H 03/27/24 08:33 Coding Level of Care Code Est Pt Level 4 (54232) Complex EM visit Add On G2211 Diagnoses Type 2 diabetes mellitus with hyperglycemia, without long-term current use of insulin E11.65 Diabetes mellitus residential insulin use: without residential use Hypercholesterolemia E78.00 Acquired hypothyroidism E03.9 Hypothyroidism type: acquired Generalized anxiety disorder F41.1 Gastroesophageal reflux disease, unspecified whether esophagitis present K21.9 Esophagitis presence: esophagitis presence not specified Tubular adenoma of colon D12.6 Assessment & Plan Assessment & Plan (1) Type 2 diabetes mellitus with hyperglycemia: Comment: Dr. 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 (2) Hypercholesterolemia: Code(s): E78.00 - Pure hypercholesterolemia, unspecified Category: Medical Plan: Avoid fried foods, chicken skin, eggs, butter margarine, pastries and meat. Be it pork or beef they have a lot of cholesterol LDL goal of less than 100 and triglyceride of less than 150 (3) Hypothyroidism: Code(s): E03.9 - Hypothyroidism, unspecified Category: Medical Qualifiers: Hypothyroidism type: acquired Qualified Code(s): E03.9 - Hypothyroidism, unspecified Plan: Continue with thyroid medication (4) Generalized anxiety disorder: Comment: Declined referral for counseling Code(s): F41.1 - Generalized anxiety disorder Category: Medical Plan: Continue with present medication declined any referral for counseling (5) Gastroesophageal reflux disease: Code(s): K21.9 - Gastro-esophageal reflux disease without esophagitis Category: Medical Qualifiers: Esophagitis presence: esophagitis presence not specified Qualified Code(s): K21.9 - Gastro-esophageal reflux disease without esophagitis Plan: Avoid the foods that causes that usually spicy foods, tomato products, juices, coffee, soda and foods that your sensitive to. After eating do not lie down, allow 3-4 hours before in lie down. And keep the head of bed above 30 degrees to avoid the acid from going up. (6) Tubular adenoma of colon: Code(s): D12.6 - Benign neoplasm of colon, unspecified Category: Medical Plan: Colonoscopy and EGD planned in April Plan - Continue dietary management for Gastroesophageal Reflux Disease and avoid specific foods that exacerbate the condition, particularly spicy and acidic foods. - Maintain current diabetes management regimen; continue to monitor blood glucose levels and maintain dietary habits including the morning fruit and protein routine. - Encourage increased hydration to address leg cramps, aiming for intake of six to eight glasses of water daily. - Consider melatonin supplementation for improved sleep hygiene, taking a consistent dose nightly to establish routine sleep patterns. - Continue regular monitoring of HbA1c; repeat blood work as needed to ensure continued diabetes management and check for any adjustments in therapy. - Maintain current approach to anemia of chronic disease; stable monitoring with no immediate intervention unless significant changes are noted. Patient was informed and verbally consented to the use of an ambient scribe for clinic note documentation during this visit. Orders: Orders AMB Hemoglobin A1c Today Z13.9 - Encounter for screening, unspecified Medications: Refilled citalopram 20 mg PO DAILY 90 tabs 2RF Z12.11 - Encounter for screening for malignant neoplasm of colon pioglitazone 30 mg PO DAILY 90 tabs 2RF Z12.11 - Encounter for screening for malignant neoplasm of colon metoprolol succinate ER 50 mg PO DAILY 90 days 90 tabs 2RF I10 - Essential (primary) hypertension
== END 2024-03-27 09:04 | disposition home or self-care (01) ==
PROVIDERS: PCP Internal Medicine; Visit Provider Internal Medicine
DX: E11.65 Type 2 diabetes mellitus with hyperglycemia (principal); E78.00 Pure hypercholesterolemia, unspecified; E03.9 Hypothyroidism, unspecified; F41.1 Generalized anxiety disorder; K21.9 Gastro-esophageal reflux disease without esophagitis; D12.6 Benign neoplasm of colon, unspecified; Z13.9 Encounter for screening, unspecified

== ENCOUNTER → 2024-03-27 08:15 | Outpatient (BNVA) | payer MEDICARE, OTHER, SELFPAY | PROVIDERS: PCP Internal Medicine; Visit Provider Internal Medicine | DX: E11.65 Type 2 diabetes mellitus with hyperglycemia (principal); E78.00 Pure hypercholesterolemia, unspecified; E03.9 Hypothyroidism, unspecified; F41.1 Generalized anxiety disorder; K21.9 Gastro-esophageal reflux disease without esophagitis; D12.6 Benign neoplasm of colon, unspecified | CPT/HCPCS: 83036; 99212 ==

== ENCOUNTER 2024-04-16 06:25 | Day surgery (SDC) | payer MEDICARE, OTHER, SELFPAY ==
--- OUTSIDE RECORDS SUMMARY | 2024-02-19 10:17 | XMS_ITS ---
Author Organization [facility] Address [address] [place] [address] Care Team Providers Care Aircraft Engine Technician Name Role Phone Dea Simpson Primary Care Provider UnavailBarbara Blum Unavailable [phone] Saroj Us Unavailable [phone] Allergies Allergen (clinical drug ingredient) Drug/Non Drug Allergy documented on EMR Reaction Allergy Type Onset Date Status acetaminophen / oxycodone Percocet itching Drug Allergy Active Medications Medication SIG (Take, Route, Frequency, Duration) Notes Start Date End Date Status iron Active Levothyroxine Sodium 125 MCG 1 tablet in the morning on an empty stomach Orally Active Ferrous Sulfate Acti ve Furosemide 20 MG as directed Orally Active Diclofenac Sodium 75 MG Oral for 90 Active Citalopram Hydrobromide 20 MG Oral for 90 Active Atorvastatin Calcium 40 MG as directed Orally Active Amoxicillin dental appt Active Vitamin D3 Active Cyanocobalamin 1000 MCG/ML Injection for 84 Active Doxycycline Monohydrate 100 MG 1 capsule Orally Once a day for 10 days 03/20/2021 Not-Taking Baby Aspirin 02/08/2020 Not-Ta gloria Doxycycline Monohydrate 100 MG 1 capsule Orally Once a day for 10 days 04/19/2021 Not-Taking Vitamin D 25 MCG (1000 UT) 1 tablet Orally Once a day 02/08/2020 Not-Taking Physical Therapy . . . 2-3x/week for 3-4 weeks Not-Taking Pioglitazone HCl 30 MG Oral for 90 Active Extra Depth Diabetic Shoes with 3 Pair Custom heat-molded multi-density innersoles for 1 year Dx: Active Doxycycline Monohydrate 100 MG 1 capsule Orally Once a day for 10 days 11/19/2022 Active Trulicity 1.5 MG/0.5ML as directed Subcutaneous Active Vitamin B12 Active Metoprolol Succinate ER 50 MG Oral for 90 Active Multivitamin - 1 tablet Orally Once a day for 30 day(s) Active Lisinopril 30 MG as directed Orally Once a day Active metFORMIN HCl 1000 MG 1 tablet with a me al Oral twice a day Active Social History Tobacco Use: Social History Observation Description Date Details (start date - stop date) Former Smoker NA - NA Tobacco Use/Smoking Question Answer Notes Are you a: former smoker Additional Findings: Tobacco Non-User Current no n-smoker Alcohol Screen Question Answer Notes Did you have a drink containing alcohol in the p ast year? No Points 0 Interpretation Negative Tobacco use other than smoking: Question Answer Notes Are you an other tobacco user? No Vital Signs Height 5 ft 11 in in 07/24/2023 Weight 189 lbs 07/24/2023 BMI 26.36 kg/m2 07/24/2023 Blood pressure systolic 120 mm Hg 07/24/19 24 Blood pressure diastolic 85 mm Hg 024 Encounters Encounter Location Date Provider Diagnosis [facility] [address] [place] [address] 07/24/2023 Saroj Us Type 2 diabetes mellitus with diabetic polyneuropathy E11.42 ; Pain in right toe(s) M79.674 ; Tinea unguium B35.1 ; Pain in left toe(s) M79.675 ; Skin disease L98.9 ; Other hammer toe(s) (acquired), left foot M20.42 ; Other hammer toe(s) (acquired), right foot M20.41 and Ataxic gait R26.0 Assessments Encounter Date Diagnosis (ICD Code) Assessment Notes Treatment Notes Treatment Clinical Notes Section Notes 07/24/2023 Type 2 diabetes mellitus with diabetic polyneuropathy (ICD-10 - E11.42) 07/24/2023 Pain in right toe(s) (ICD-10 - M79.674) 07/24/2023 Tinea unguium (ICD-10 - B35.1) 07/24/2023 Pain in left toe(s) (ICD-10 - M79.675) 07/24/2023 Skin disease (ICD-10 - L98.9) 07/24/2023 Other hammer toe(s) (acquired), left foot (ICD-10 - M20.42) 07/24/2023 Other hammer toe(s) (acquired), right foot (ICD-10 - M20.41) 07/24/2023 Ataxic gait (ICD-10 - R26.0) Plan Of Treatment Next Appt Details Follow Up: 4 Months, Reason: Provider Name:Barbara Hidalgo grace, 03/16/2024 09:15:00 AM, [address] [place] [address], [id number], Procedure Notes * Category Sub-Category Detail Notes Debride Nail 6-10 Nail debridement Nail debridem ent performed extensively to reduce/remove overall nail length and girth, subungual debris, and necrotic tissue, by manual and electrical means with use of a nail nipper and/or dremel, to more viable healthy nail plate or bed tissue 6-10. Silver nitrate used for any petechial bleeding as necessary. Patient chooses, no pharmaceutical tx (24503) Keratoma Treatment Parring or Cutting o f Benign Hyperkeratotic Lesion(s) 93795 (2-4 Lesions) - The Benign hyperkeratotic lesions, as described above were pared, and/or cut utilizing a sterile #15 blade, tissue nippers, and/or dremel Progress Notes * Maximus CARTER HDOB: [birth year] (72 yo M)Acc No.[id number]:07/24/2023 Progress Note Patient:?Maximus Carter H Provider:?Saroj Us DPM :1950???Age:72 Y???Sex:Male Paul e:07/24/2023 Address:[address] [place] [address], [facility] Pcp:Dea Simpson Subjective: * Chief Complaints: * ??? 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 * ROS:?General/Constitutional:?Nausea?denies.?Vomiting?denies.?Hunger Thirst?denies.?Loss appetite?denies.?Chills?denies.?Fatigue?denies.?Fever?denies.?Night Sweats?denies.?Unexplained weight loss?denies.?Unexplained weight gain?denies.?HEENTM:?Dentures?admits.?Dizziness?denies.?Glasses/contacts?admits.?Retinopathy?de nies.?Blurred/double vision?denies.?TMJ?denies.?Discharge/drainage?denies.?Implants?denies.?Sore throat?denies.?Dental implants?denies.?Hard of hearing ?admits.?Difficulty chewing/swallowing/speaking?denies.?Nose bleeds?denies.?Sore mouth?denies.?Respiratory:?On Oxygen?denies.?Pneumonia/pleurisy?denies.?Bronchitis?denies.?Emphysema?denies.?C oughing?denies.?Cough blood?denies.?Shortness of breath?denies.?Wheezing?denies.?Cardiovascular:?Pacemaker?denies.?MVP?denies.?WPW?denies.?CHF?denies.?Heart attack?denies.?Septal defect?denies.?Rapid beat?denies.?Chest pain ?denies.?Atrial Fib.?denies.?Murmur/Palpitations?denies.?Gastrointestinal:?Hemorrhoids?denies.?Stomach/Abdominal pain?denies.?Dark blood stool?denies.?Irritable bowel ?denies.?Constipation?denies.?Diarrhea?denies.?Hematology:?Swelling?denies.?Clots?denies.?Varicose Veins?denies.?Bruising?denies.?Bleeding problem?denies.?Genitourinary:?Blood urine?denies.?Frequent/Painfu/urination/bladder control?denies.?Kidney stones?denies.?Infection (UTI)?denies.?Nephropathy?denies.?sex trans dis (STD)?denies.?Prostate?denies.?Musculoskeletal:?Hammertoes?denies.?Bunions?denies.?Back Pain?denies.?Muscle Cramps/ Resting?admits.?Muscle cramps / walking?denies.?Generalized aches and pains?admits.?Weakness?denies.?Integ.:?Garcia?denies.?Scars?admits.?Corns/calluses?denies.?Ingrown nails?denies.?Painful nails?denies.?Open Sores?denies.?Rashes?denies.?Neurologic:?Difficulty sleeping?admits.?Brain disorder?denies.?Numbness?admits.?Balance trouble?admits.?Confusion?denies.?Fainting/blackouts?denies.?Tingling?admits.?Tr emors?denies.? * Medical History:? * Surgical History:?achilles t endon repair knee replacement shoulder surgery carpal tunnel surgery Flex ten R 03/30/21 * Hospitalization/Major Diagno stic Procedure:?Denies Past Hospitalization * Family History:?Mother: dece ased, arthritis, foot problems.?Father: , cancer, high blood pressure.?Siblings: cancer.? * Social History:?Tobacco Use:?Tobacco Use/Smoking?Are you a:?former smoker ?Additional Findings: Tobacco Non-User?Current non-smoker ?Tobacco use other than smoking?Are you an other tobacco user??No ???Drugs/Alcohol:?Drugs?Have you used drugs other than those for medical reasons in the past 12 months??No ?Alcohol Screen?Did you have a drink containing alcohol in the past year??No ?Points?0 ?Interpretation?Negative ???Miscellaneous:?Caffeine: yes, frequency:, 3-5 cups per day. ?Children: yes, 3. ?Exercise: yes, occasional. ?Marital status: . 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 * Medications:?TakingVitamin D 3 Atorvastatin Calcium 40 MG Tablet as directed Orally Amoxicillin , Notes: dental apptCitalopram Hydrobromide 20 MG Tablet Oral Cyanocobalamin 1000 MCG/ML Solution Injection Diclofenac Sodium 75 MG Tablet Delayed Release Oral Ferrous Sulfate Furosemide 20 MG Tablet as directed Orally iron Levothyroxine Sodium 125 MCG Capsule 1 tablet in the morning on an empty stomach Orally Lisinopril 30 MG Tablet as directed Orally Once a daymetFORMIN HCl 1000 MG Tablet 1 tablet with a meal Oral twice a dayMetoprolol Succinate ER 50 MG Tablet Extended Release 24 Hour Oral Multivitamin - Tablet 1 tablet Orally Once a dayPioglitazone HCl 30 MG Tablet Oral Trulicity 1.5 MG/0.5ML Solution Pen- injector as directed Subcutaneous Vitamin B12 Extra Depth Diabetic Shoes with 3 Pair Custom heat-molded multi-density innersoles for 1 year Dx:Doxycycline Monohydrate 100 MG Capsule 1 capsule Orally Once a dayTaking Vitamin D3 Taking Atorvastatin Calcium 40 MG Tablet as directed Orally Taking Amoxicillin , Notes: dental apptTaking Citalopram Hydrobromide 20 MG Tablet Oral Taking Cyanocobalamin 1000 MCG/ML Solution Injection Taking Diclofenac Sodium 75 MG Tablet Delayed Release Oral Taking Ferrous Sulfate Taking Furosemide 20 MG Tablet as directed Orally Taking iron Taking Levothyroxine Sodium 125 MCG Capsule 1 tablet in the morning on an empty stomach Orally Taking Lisinopril 30 MG Tablet as directed Orally Once a dayTaking metFORMIN HCl 1000 MG Tablet 1 tablet with a meal Oral twice a dayTaking Metoprolol Succinate ER 50 MG Tablet Extended Release 24 Hour Oral Taking Multivitamin - Tablet 1 tablet Orally Once a dayTaking Pioglitazone HCl 30 MG Tablet Oral Taking Trulicity 1.5 MG/0.5ML Solution Pen-injector as directed Subcutaneous Taking Vitamin B12 Taking Extra Depth Diabetic Shoes with 3 Pair Custom heat-molded multi-density innersoles for 1 year Dx:Taking Doxycycline Monohydrate 100 MG Capsule 1 capsule Orally Once a dayNot-Taking/PRNVitamin D 25 MCG (1000 UT) Tablet 1 tablet Orally Once a dayPhysical Therapy . . . . 2-3x/weekBaby Aspirin Doxycycline Monohydrate 100 MG Capsule 1 capsule Orally Once a dayDoxycycline Monohydrate 100 MG Capsule 1 capsule Orally Once a dayMedication List reviewed and reconciled with the patientNot-Taking/PRN Vitamin D 25 MCG (1000 UT) Tablet 1 tablet Orally Once a dayNot-Taking/PRN Physical Therapy . . . . 2-3x/weekNot-Taking/PRN Baby Aspirin Not-Taking/PRN Doxycycline Monohydrate 100 MG Capsule 1 capsule Orally Once a dayNot-Taking/PRN Doxycycline Monohydrate 100 MG Capsule 1 capsule Orally Once a dayMedication List reviewed and reconciled with the patient * Allergies:?Percocet: itching - Side Effectsyes[Allergies Verified] Objective: * Vitals:?Ht: 5 ft 11 in, Wt:1 89, BMI:26.36, Shoe size:10.5, BP:120/85 mm Hg, BS:130. * ???Past Orders: ???Lab:HEMOGLOBIN A1C (GLYCO HEMOGLOBIN) (Order Date - 03/14/2022) (Collection Date - 02/21/2022) ? Value Reference Range ?HEMOGLOBIN A1C % (HH) 7.0 * Examination: ???Ophthalmology Referral: ?DIABETES EYE EXAM?Neurological: ?SENSORY:?Neurological exam demonstrates, reduced vibration sensation, 5.07 monofilament test performed at plantar aspects of 5 varied sites per foot shows sensation, reduced , B/L.?Vascular: ?DP PULSES:? 0/4, B/L.?PT PULSES:? 1/4, B/L.?CAPILLARY FILL TIME:?3 secs. per digit. B/L.?SKIN TEMPERTURE GRADIENT OF THE LOWER EXTERMITIES:?normal, B/L.?HAIR GROWTH/TEXTURE/ELASTICITY/TURGOR:?normal, B/L.?PIGMENTATION:?normal, B/L.?EDEMA:?absent, B/L.?TELANGECTASIA:?absent, B/L.?Nails: ?NAILS are:?Elongated, overgrown, dystrophic, lytic, greater than 3mm thick, discolored and friable with crumbly malodorous subungual debris, with dull to no pain on palpation due to neuropathy, 1-5 B/L.?Dermatologic: ?SKIN FINDINGS:?Skin exam reveals Keratotic lesion(s) located at, Heel(s), B/L .?General Examination: ?GENERAL APPEARANCE:?pleasant, alert, well nourished, well developed, well hydrated, with good attention to hygene/body habitus, and in no acute distress.?ORIENTED:?person,place, and time.?FOOT EXAM:?Orthopedic: ?MUSCLE STRENGTH:?5/5 all groups in a symmetrical fashion , B/L.?DIGITAL DEFORMITIES:? Digital contracture, PIPJ, 2-5 B/L, non-reducable with WB or to push-up test, no over, nor underlapping.? Assessment: * Assessment: 1.?Type 2 diabetes mellitus with diabetic polyneuropathy - E11.42?2.?Pain in right toe(s) - M79.674?3.?Tinea unguium - B35.1 (Primary)?4.?Pain in left toe(s) - M79.675?5.?Skin disease - L98.9?6.?Other hammer toe(s) (acquired), left foot - M20.42?7.?Other hammer toe(s) (acquired), right foot - M20.41?8.?Ataxic gait - R26.0? Plan: * Treatment: * Procedures:?Debride Nail 6-10:?Nail debridement?Nail debridement performed extensively to reduce/remove overall nail length and girth, subungual debris, and necrotic tissue, by manual and electrical means with use of a nail nipper and/or dremel, to more viable healthy nail plate or bed tissue 6-10. Silver nitrate used for any petechial bleeding as necessary. Patient chooses, no pharmaceutical tx (70520).?Keratoma Treatment:?Parring or Cutting of Benign Hyperkeratotic Lesion(s)?09609 (2-4 Lesions) - The Benign hyperkeratotic lesions, as described above were pared, and/or cut utilizing a sterile #15 blade, tissue nippers, and/or dremel.? * Procedure Codes:?47312 DEBRI DE NAIL, 6 OR MORE, Modifiers: XS 07960 TRIM SKIN LESIONS, 2 TO 4, Modifiers: XS * Follow Up:?4 Months * Images: * Sign off status: Completed true * Provider:?Saroj Us DPM Date:? 024 Generated for Mariama ames/Zaira/Rosales on:?02/19/2024 10:17 AM EST History and Physical Notes * HPI (History of Present Illness) Category Sub-Category Detail Notes Category Not es Toe pain Nature: aching, tenderness, stiffnes s Location: 3rd toe, 4th toe, Le ft foot Duration: several years Onset/Cause: unknown Course: improved Aggravated by: shoes, standing/walk ing Skin problems Nature: tender, throbbing, swelling Location: Heel/Rearfoot, Right Onset/Cause: stepped on metal fra gment Course: resolved At Risk footcare Pt States Last PCP Visit: Date: 4 Foot Pain Nature: poor balance with hx of fall s Location: B/L Treatments: physical therapy--di d not help Misc: pt just lost his 42 yo son due to aneurysm--he had young children when he passed; 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 [employer] Examination Category Sub-Category Detail Notes Category Not es Neurological SENSORY: Neurological exa m demonstrates, reduced vibration sensation, 5.07 monofilament test performed at plantar aspects of 5 varied sites per foot shows sensation, reduced , B/L Dermatologic SKIN FINDINGS: Skin exam reveal s Keratotic lesion(s) located at, Heel(s), B/L Orthopedic DIGITAL DEFORMITIES: Digital con tracture, PIPJ, 2-5 B/L, non-reducable with WB or to push-up test, no over, nor underlapping MUSCLE STRENGTH: 5/5 all groups in a symmetrical fashion , B/L General Examination GENERAL APPEARANCE: pleasant , alert, well nourished, well developed, well hydrated, with good attention to hygene/body habitus, and in no acute distress FOOT EXAM: Lower Extremity Neurological Exa m performed:: Yes Visual exam of foot performed:: Yes Date: 03/16/2020 Sensory testing performed:: sensations d iminished Pedal pulse taking performed:: 1+ ORIENTED: person,place, and ti me Ophthalmology Referral DIABETES EYE EXAM Diabeti c Retinopathy Screening:: Yes 02/2022 Findings of Diabetic Eye Exam:: no retin opathy Vascular DP PULSES(B): 0/4, B/L PT PULSES(B): 1/4, B/L CAPILLARY FILL TIME: 3 secs. per digit. B/L TEMPERTURE GRADIENT(C): normal, B/L TROPHIC CONDITION-TEXTURE/ELASTICITY/TUR GOR/HAIR GROWTH(B): normal, B/L EDEMA(C): absent, B/L TELANGECTASIA: absent, B/L PIGMENTATION: normal, B/L Nails NAILS are: Elongated, overg rown, dystrophic, lytic, greater than 3mm thick, discolored and friable with crumbly malodorous subungual debris, with dull to no pain on palpation due to neuropathy, 1-5 B/L
--- OUTSIDE RECORDS SUMMARY | 2024-02-19 10:17 | XMS_ITS ---
Author Organization [facility] Address [address] [place] [address] Care Team Providers Care Bushler Name Role Phone Dea Simpson Primary Care Provider UnavailBarbara Blum Unavailable [phone] Saroj Us Unavailable [phone] Allergies Allergen (clinical drug ingredient) Drug/Non Drug Allergy documented on EMR Reaction Allergy Type Onset Date Status acetaminophen / oxycodone Percocet itching Drug Allergy Active Medications Medication SIG (Take, Route, Frequency, Duration) Notes Start Date End Date Status Baby Aspirin 02/08/2020 Not-Ta gloria Physical Therapy . . . 2-3x/week for 3-4 weeks Not-Taking Vitamin D 25 MCG (1000 UT) 1 tablet Orally Once a day 02/08/2020 Not-Taking Doxycycline Monohydrate 100 MG 1 capsule Orally Once a day for 10 days 03/20/2021 Not-Taking Doxycycline Monohydrate 100 MG 1 capsule Orally Once a day for 10 days 04/19/2021 Not-Taking Doxycycline Monohydrate 100 MG 1 capsule Orally Once a day for 10 days 11/19/2022 Not-Taking Extra Depth Diabetic Shoes with 3 Pair Custom heat-molded multi-density innersoles for 1 year Dx: Active Vitamin B12 Active Trulicity 1.5 MG/0.5ML as directed Subcutaneous Active Pioglitazone HCl 30 MG Oral for 90 Active metFORMIN HCl 1000 MG 1 tablet with a me al Oral twice a day Active Lisinopril 30 MG as directed Orally Once a day Active Levothyroxine Sodium 125 MCG 1 tablet in the morning on an empty stomach Orally Active Multivitamin - 1 tablet Orally Once a day for 30 day(s) Active Metoprolol Succinate ER 50 MG Oral for 90 Active iron Active Furosemide 20 MG as directed Orally Active Ferrous Sulfate Acti ve Diclofenac Sodium 75 MG Oral for 90 Active Cyanocobalamin 1000 MCG/ML Injection for 84 Active Atorvastatin Calcium 40 MG as directed Orally Active Vitamin D3 Active Citalopram Hydrobromide 20 MG Oral for 90 Active Amoxicillin dental appt Active Social History Tobacco Use: Social History Observation Description Date Details (start date - stop date) Former Smoker NA - NA Tobacco Use/Smoking Question Answer Notes Are you a: former smoker Additional Findings: Tobacco Non-User Current no n-smoker Tobacco use other than smoking: Question Answer Notes Are you an other tobacco user? No Vital Signs Height 3sf36ms in 11/13/2023 Weight 180 lbs 11/13/2023 BMI 25.1 kg/m2 11/13/2023 Encounters Encounter Location Date Provider Diagnosis [facility] [address] [place] [address] 11/13/2023 Saroj Us Type 2 diabetes mellitus with [...] Treatment Notes Treatment Clinical Notes Section Notes 11/13/2023 Type 2 diabetes mellitus with diabetic polyneuropathy (ICD-10 - E11.42) 11/13/2023 Pain in right toe(s) (ICD-10 - M79.674) 11/13/2023 Tinea unguium (ICD-10 - B35.1) 11/13/2023 Pain in left toe(s) (ICD-10 - M79.675) 11/13/2023 Skin disease (ICD-10 - L98.9) 11/13/2023 Other hammer toe(s) (acquired), left foot (ICD-10 - M20.42) 11/13/2023 Other hammer toe(s) (acquired), right foot (ICD-10 - M20.41) 11/13/2023 Ataxic gait (ICD-10 - R26.0) Plan Of Treatment Next Appt Details Follow Up: 4 Months, Reason: Provider Name:Barbara Hidalgo grace, 03/16/2024 09:15:00 AM, [address] [place], [address], Procedure Notes * Category Sub-Category Detail Notes [...] as necessary. Patient chooses, no pharmaceutical tx (25828) Keratoma Treatment Parring or Cutting o f Benign Hyperkeratotic Lesion(s) 67810 (2-4 Lesions) - The Benign hyperkeratotic lesions, as described above were pared, and/or cut utilizing a sterile #15 blade, tissue nippers, and/or dremel Progress Notes * Maximus CARTER HDOB: [birth year] (73 yo M)Acc No.[id number]:11/13/2023 Progress Note Patient:?Horace Maximus Dodie Provider:?Saroj Us DPM :1950???Age:73 Y???Sex:Male Paul e:11/13/2023 Address:[address] [place], [place] [id number] Pcp:Dea Simpson Subjective: * Chief Complaints: * ??? 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 ?Children: yes, 3. ?Exercise: yes, occasional. ?Marital status: . 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 * Medications:?TakingVitamin D 3 Atorvastatin Calcium 40 [...] heat-molded multi-density innersoles for 1 year Dx:Taking Vitamin D3 Taking Atorvastatin Calcium 40 MG [...] Custom heat-molded multi-density innersoles for 1 year Dx:Not-Taking/PRNDoxycycline Monohydrate 100 MG Capsule 1 capsule Orally Once a dayVitamin D 25 MCG (1000 UT) Tablet 1 tablet Orally Once a dayPhysical Therapy . . . . 2-3x/weekBaby Aspirin Doxycycline Monohydrate 100 MG Capsule 1 capsule Orally Once a dayDoxycycline Monohydrate 100 MG Capsule 1 capsule Orally Once a dayNot-Taking/PRN Doxycycline Monohydrate 100 MG Capsule 1 capsule Orally Once a dayNot-Taking/PRN Vitamin D 25 MCG (1000 UT) Tablet 1 tablet Orally Once a dayNot-Taking/PRN Physical Therapy . . . . 2-3x/weekNot-Taking/PRN Baby Aspirin Not-Taking/PRN Doxycycline Monohydrate 100 MG Capsule 1 capsule Orally Once a dayNot-Taking/PRN Doxycycline Monohydrate 100 MG Capsule 1 capsule Orally Once a day * Allergies:?Percocet: itching - Side Effectsyes[Allergies Verified] Objective: * Vitals:?Ht: 4kz11he, Wt:180, BMI:25.1, Shoe size: 10.5, BS: not taken, Ht-cm: 180.34 cm, Wt-k.65 kg. * ???Past Orders: ???Lab:HEMOGLOBIN A1C (GLYCO HEMOGLOBIN) [...] as necessary. Patient chooses, no pharmaceutical tx (15966).?Keratoma Treatment:?Parring or Cutting of Benign Hyperkeratotic Lesion(s)?61750 (2-4 Lesions) - The Benign hyperkeratotic lesions, as described above were pared, and/or cut utilizing a sterile #15 blade, tissue nippers, and/or dremel.? * Procedure Codes:?43868 DEBRI DE NAIL, 6 OR MORE, Modifiers: XS 95877 TRIM SKIN LESIONS, 2 TO 4, Modifiers: XS * Follow Up:?4 Months * Images: * Sign off status: Completed true * Provider:?Saroj Us DPM Date:? 024 Generated for Mariama ames/Zaira/Rosales on:?02/19/2024 10:16 AM EST History and Physical Notes * [...] Visual exam of foot performed:: Yes Date: 11/13/2023 Sensory testing performed:: sensations d iminished Pedal pulse taking performed:: 1+ ORIENTED: person,place, and ti me Ophthalmology Referral DIABETES EYE EXAM Diabetic Retinopa thy Screening:: Yes Findings of Diabetic Eye Exam:: no retin [...]
--- OUTSIDE RECORDS SUMMARY | 2024-02-19 10:17 | XMS_ITS ---
Author Organization [facility] Address [address] [place] [address] Care Team Providers Care Padder Cushion Name Role Phone Dea Simpson Primary Care Provider UnavailBarbara Blum Unavailable [phone] Saroj Us Unavailable [phone] Allergies Allergen (clinical drug ingredient) Drug/Non Drug Allergy documented on EMR Reaction Allergy Type Onset Date Status acetaminophen / oxycodone Percocet itching Drug Allergy Active Medications Medication SIG (Take, Route, Frequency, Duration) Notes Start Date End Date Status Vitamin B12 Active Extra Depth Diabetic Shoes with 3 Pair Custom heat-molded multi-density innersoles for 1 year Dx: Active Pioglitazone HCl 30 MG Oral for 90 Active Trulicity 1.5 MG/0.5ML as directed Subcutaneous Active Multivitamin - 1 tablet Orally Once a day for 30 day(s) Active Lisinopril 30 MG as directed Orally Once a day Active metFORMIN HCl 1000 MG 1 tablet with a me al Oral twice a day Active iron Active Levothyroxine Sodium 125 MCG 1 tablet in the morning on an empty stomach Orally Active Metoprolol Succinate ER 50 MG Oral for 90 Active Furosemide 20 MG as directed Orally Active Diclofenac Sodium 75 MG Oral for 90 Active Ferrous Sulfate Acti ve Citalopram Hydrobromide 20 MG Oral for 90 Active Cyanocobalamin 1000 MCG/ML Injection for 84 Active Vitamin D3 Active Doxycycline Monohydrate 100 MG 1 capsule Orally Once a day for 10 days 04/19/2021 Not-Taking Atorvastatin Calcium 40 MG as directed Orally Active Doxycycline Monohydrate 100 MG 1 capsule Orally Once a day for 10 days 03/20/2021 Not-Taking Amoxicillin dental appt Active Baby Aspirin 02/08/2020 Not-Ta gloria Vitamin D 25 MCG (1000 UT) 1 tablet Orally Once a day 02/08/2020 Not-Taking Physical Therapy . . . 2-3x/week for 3-4 weeks Not-Taking Doxycycline Monohydrate 100 MG 1 capsule Orally Once a day for 10 days 11/19/2022 Active Social History Tobacco Use: Social History [...] Signs Height 5 ft 11 in in 03/27/2023 Weight 189 lbs 03/27/2023 BMI 26.36 kg/m2 03/27/2023 Blood pressure systolic 120 mm Hg 03/27/19 24 Blood pressure diastolic 85 mm Hg 024 Encounters Encounter Location Date Provider Diagnosis [facility] [address] [place] [address] 03/27/2023 Saroj Us Type 2 diabetes mellitus with [...] Treatment Notes Treatment Clinical Notes Section Notes 03/27/2023 Type 2 diabetes mellitus with diabetic polyneuropathy (ICD-10 - E11.42) 03/27/2023 Pain in right toe(s) (ICD-10 - M79.674) 03/27/2023 Tinea unguium (ICD-10 - B35.1) 03/27/2023 Pain in left toe(s) (ICD-10 - M79.675) 03/27/2023 Skin disease (ICD-10 - L98.9) 03/27/2023 Other hammer toe(s) (acquired), left foot (ICD-10 - M20.42) 03/27/2023 Other hammer toe(s) (acquired), right foot (ICD-10 - M20.41) 03/27/2023 Ataxic gait (ICD-10 - R26.0) Plan Of Treatment Next Appt Details Follow Up: 4 Months, Reason: Provider Name:Barbara Hidalgo grace, 03/16/2024 09:15:00 AM, [address] [place] [address], [phone], Procedure Notes * Category Sub-Category Detail Notes [...] as necessary. Patient chooses, no pharmaceutical tx (64173) Keratoma Treatment Parring or Cutting o f Benign Hyperkeratotic Lesion(s) 98952 (2-4 Lesions) - The Benign hyperkeratotic lesions, as described above were pared, and/or cut utilizing a sterile #15 blade, tissue nippers, and/or dremel Progress Notes * Maximus CARTER HDOB: [birth year] (72 yo M)Acc No.[id number]:03/27/2023 Progress Note Patient:?Maximus Carter H Provider:?Saroj Us DPM :1950???Age:72 Y???Sex:Male Paul e:03/27/2023 Address:[address] [place] [address], [place], [place] Pcp:Dea Simpson Subjective: * Chief Complaints: * ??? * HPI: ???At Risk footcare:?Pt States Last PCP Visit:?Date?10/09/2022 ???Foot Pain:?Nature:?poor balance with hx of falls.?Location:?B/L.?Treatments:?physical [...] yes, occasional. ?Marital status: . 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 * Medications:?TakingVitamin D 3 Atorvastatin Calcium 40 [...] itching - Side Effectsyes[Allergies Verified] Objective: * Vitals:?Ht:5 ft 11 in, Wt:18 9, BMI:26.36, Shoe size:10.5, BP:120/85 mm Hg, BS:not taken, Ht-cm: 180.34 cm, Wt-k.73 kg. * ???Past Orders: ???Lab:HEMOGLOBIN A1C (GLYCO [...] as necessary. Patient chooses, no pharmaceutical tx (83851).?Keratoma Treatment:?Parring or Cutting of Benign Hyperkeratotic Lesion(s)?33559 (2-4 Lesions) - The Benign hyperkeratotic lesions, as described above were pared, and/or cut utilizing a sterile #15 blade, tissue nippers, and/or dremel.? * Procedure Codes:?65192 DEBRI DE NAIL, 6 OR MORE, Modifiers: XS 94560 TRIM SKIN LESIONS, 2 TO 4, Modifiers: XS * Follow Up:?4 Months * Images: * Sign off status: Completed true * Provider:Tommy Us DPM Date:? 024 Generated for Mariama [...] footcare Pt States Last PCP Visit: Date: 3 Foot Pain Nature: poor balance with hx [...]
--- OUTSIDE RECORDS SUMMARY | 2024-02-19 10:17 | XMS_ITS | Patient Health Record ---
Author Organization [facility] Catie hern[facility]dez [place] Address [address] [facility] [place] [address] Care Team Providers Care Digital X Ray Service Engineer Name Role Phone Dea Simpson Primary Care Provider Barbara Crawford Unavailable [phone] Saroj Us Unavailable [phone] Allergies Allergen (clinical drug ingredient) Drug/Non Drug Allergy documented on EMR Reaction Allergy Type Onset Date Status acetaminophen / oxycodone Percocet itching Drug Allergy Active Reason For Referral No Information Medications Medication SIG (Take, Route, Frequency, Duration) Notes Start Date End Date Status Cyanocobalamin 1000 MCG/ML Injection for 84 Active Trulicity 1.5 MG/0.5ML as directed Subcutaneous Active Citalopram Hydrobromide 20 MG Oral for 90 Active Pioglitazone HCl 30 MG Oral for 90 Active Amoxicillin dental appt Active Multivitamin - 1 tablet Orally Once a day for 30 day(s) Active Metoprolol Succinate ER 50 MG Oral for 90 Active Doxycycline Monohydrate 100 MG 1 capsule Orally Once a day for 10 days 03/20/2021 Not-Taking Doxycycline Monohydrate 100 MG 1 capsule Orally Once a day for 10 days 04/19/2021 Not-Taking Atorvastatin Calcium 40 MG as directed Orally Active Vitamin D3 Active metFORMIN HCl 1000 MG 1 tablet with a me al Oral twice a day Active Lisinopril 30 MG as directed Orally Once a day Active Baby Aspirin 02/08/2020 Not-Ta gloria Levothyroxine Sodium 125 MCG 1 tablet in the morning on an empty stomach Orally Active Physical Therapy . . . 2-3x/week for 3-4 weeks Not-Taking iron Active Vitamin D 25 MCG (1000 UT) 1 tablet Orally Once a day 02/08/2020 Not-Taking Furosemide 20 MG as directed Orally Active Doxycycline Monohydrate 100 MG 1 capsule Orally Once a day for 10 days 11/19/2022 Not-Taking Ferrous Sulfate Acti ve Extra Depth Diabetic Shoes with 3 Pair Custom heat-molded multi-density innersoles for 1 year Dx: Active Diclofenac Sodium 75 MG Oral for 90 Active Vitamin B12 Active Immunizations Vaccine Route Administration Date Status Comme nts COVID-19 Moderna Vaccine Unknown 11/21/2020 Administered 1st 04/27/2020 2nd 05/25/2020 Influenza Unknown 12/05/2021 Administered Influenza Unknown 11/09/2022 Administered Social History Tobacco Use: Social History Observation [...] Are you an other tobacco user? No Problems Problem Type SNOMED Code ICD Code Onset Dates Problem Status W/U Status Risk Notes Problem Ataxic gait (99551215) Ataxic gait (R26.0) Active confirmed Problem 188104974 Other hammer toe(s) (acquired), right foot (M20.41) Active confirmed Problem Acquired hammer toe of left foot (6575367908021375 ) Other hammer toe(s) (acquired), left foot (M20.42) Active confirmed Problem Acquired hammer toe of right foot (1847709041010543 ) Other hammer toe(s) (acquired), right foot (M20.41) Active confirmed Problem Acquired hammer toe of left foot (4962858634792856 ) Other hammer toe(s) (acquired), left foot (M20.42) Active confirmed Problem Polyneuropathy due to type 2 diabetes mellitus (279692220) Type 2 diabetes mellitus with diabetic polyneuropathy (E11.42) Active confirmed Problem Polyneuropathy due to diabetes mellitus type I (311989599) Type 1 diabetes mellitus with diabetic polyneuropathy (E10.42) Active confirmed Vital Signs Blood pressure diastolic 85 mm Hg 07/24/2023 Height 6mg60yx in 11/13/2023 Blood pressure systolic 120 mm Hg 07/24/2023 Weight 180 lbs 11/13/2023 BMI 25.1 kg/m2 11/13/2023 Encounters Encounter Location Date Provider Diagnosis [address] [address] 03/27/2023 Saroj Us Type 2 diabetes mellitus with diabetic polyneuropathy E11.42 ; Pain in right toe(s) M79.674 ; Tinea unguium B35.1 ; Pain in left toe(s) M79.675 ; Skin disease L98.9 ; Other hammer toe(s) (acquired), left foot M20.42 ; Other hammer toe(s) (acquired), right foot M20.41 and Ataxic gait R26.[address] [address] 07/24/2023 Saroj Us Type 2 diabetes mellitus with diabetic polyneuropathy E11.42 ; Pain in right toe(s) M79.674 ; Tinea unguium B35.1 ; Pain in left toe(s) M79.675 ; Skin disease L98.9 ; Other hammer toe(s) (acquired), left foot M20.42 ; Other hammer toe(s) (acquired), right foot M20.41 and Ataxic gait R26.[address] [address] 11/13/2023 Saroj Us Type 2 diabetes mellitus [...] with diabetic polyneuropathy (ICD-10 - E11.42) 07/24/2023 Type 2 diabetes mellitus with diabetic polyneuropathy (ICD-10 - E11.42) 11/13/2023 Type 2 diabetes mellitus with diabetic polyneuropathy (ICD-10 - E11.42) 11/13/2023 Pain in right toe(s) (ICD-10 - M79.674) 07/24/2023 Pain in right toe(s) (ICD-10 - M79.674) 03/27/2023 Pain in right toe(s) (ICD-10 - M79.674) 03/27/2023 Tinea unguium (ICD-10 - B35.1) 07/24/2023 Tinea unguium (ICD-10 - B35.1) 11/13/2023 Tinea unguium (ICD-10 - B35.1) 11/13/2023 Pain in left toe(s) (ICD-10 - M79.675) 07/24/2023 Pain in left toe(s) (ICD-10 - M79.675) 03/27/2023 Pain in left toe(s) (ICD-10 - M79.675) 03/27/2023 Skin disease (ICD-10 - L98.9) 07/24/2023 Skin disease (ICD-10 - L98.9) 11/13/2023 Skin disease (ICD-10 - L98.9) 11/13/2023 Other hammer toe(s) (acquired), left foot (ICD-10 - M20.42) 07/24/2023 Other hammer toe(s) (acquired), left foot (ICD-10 - M20.42) 03/27/2023 Other hammer toe(s) (acquired), left foot (ICD-10 - M20.42) 07/24/2023 Other hammer toe(s) (acquired), right foot (ICD-10 - M20.41) 03/27/2023 Other hammer toe(s) (acquired), right foot (ICD-10 - M20.41) 11/13/2023 Other hammer toe(s) (acquired), right foot (ICD-10 - M20.41) 11/13/2023 Ataxic gait (ICD-10 - R26.0) 03/27/2023 Ataxic gait (ICD-10 - R26.0) 07/24/2023 Ataxic gait (ICD-10 - R26.0) Plan Of Treatment Pending Test Test Name Order Date X ray : Foot, left 3V 06/15/2020 X ray : Foot, right 3V 06/15/2020 75185-QEVT SKIN LESIONS, 2 TO 4 03/16/19 21 74465-MBJY SKIN LESIONS, 2 TO 4 06/16/19 21 21961-CWMX SKIN LESIONS, 2 TO 4 09/29/19 21 94068-DWZF SKIN LESIONS, 2 TO 4 01/05/20 21 96650-HWAO SKIN LESIONS, 2 TO 4 03/30/19 39776- Removal of Foreign Body, Subcut 0 11/19/2022 Next Appt Details Provider Name:Barbara Hidalgo grace, 03/16/2024 09:15:00 AM, [address] [place] [address], [phone], Insurance Providers Payer Name Payer Address Payer Phone Subscriber Number Group Number Insured Name Patient Relationship to Insured Coverage Start Date Coverage End Date Medicare National Govt [facility] [address] [facility] [place] [address] [id number] Maximus Vu Self - patient is the insured [facility] ([facility] [address] [place] [address] [phone] [id number] Maximus Vu Self - patient is the insured Medical (General) History Medical History History ICD Code Back,Hip,and Knee pain Depression High blood pressure thyroid Joint implants/screws type II diabetes covid-19 Anemia Hypothyroidism Hyperlipidemia Pain Surgical History Surgery Date(Month/Year) achilles tendon repair knee replacement shoulder surgery carpal tunnel surgery Flex ten R 03/30/21
[2024-04-14 13:39] VITALS: BMI 26.1
--- NOTE | 2024-04-15 12:13 | HO.ANESPROP2 ---
Documented by User: Gretchen Pompa NP 04/15/24 12:14 HPI - Anesthesia Eval Consult details Narrative: 73yo M for Upper Endoscopy and Colonoscopy ETOH abuse Anesthesia Pre-Procedure Meds Is the patient on any of the following meds?: GLP1/DPP4 PMFSH Active Problems Active Problems: All Active Problems Tubular adenoma of colon (Acute) Lumbar degenerative disc disease (Acute) Left hip pain (Acute) Trigger finger (Acute) Tinnitus (Acute) Gastroesophageal reflux disease (Acute) Eczema (Acute) Dysphagia (Acute) Medicare annual wellness visit, initial (Acute) COVID-19 virus infection (Acute) H. pylori infection (Acute) Generalized anxiety disorder (Acute) Anemia (Chronic) Hearing loss (Acute) Vitamin B12 deficiency (Acute) Hypothyroidism (Acute) Hypercholesterolemia (Acute) Type 2 diabetes mellitus with hyperglycemia (Acute) Type 2 diabetes mellitus with diabetic polyneuropathy (Acute) Essential hypertension (Acute) Past Medical History Medical History Family history of cerebral aneurysm HTN (hypertension) History of alcohol abuse Basal cell carcinoma (BCC) History of depression On beta zoe at home Hx of sigmoidoscopy Shortness of breath Colon cancer screening Vitamin B1 deficiency Hypercholesterolemia Type 2 diabetes mellitus with hyperglycemia Chronic anemia Hypothyroidism Type 2 diabetes mellitus with diabetic polyneuropathy Essential hypertension Family History Family History Father Throat cancer Diabetes Bladder cancer Lung cancer Mother No problems noted. Sister Diabetes Brother Throat cancer Surgical History Surgical History History of esophagogastroduodenoscopy (EGD) Status post right foot surgery Hx of colonoscopy Lipoma of right axilla Hx of tonsillectomy Hx of Achilles tendon repair Hx of carpal tunnel repair History of total right knee replacement H/O repair of rotator cuff History of Problems with Anesthesia: No Social History Social History Household Members: Spouse Housing: House Are you a primary manager wound care to a significant other at home: No Do you presently have visiting nurse or other home services: No Alcohol intake: former Patient Tobacco Use Status: Former Tobacco user Tobacco use type: Cigarette Cigarette Packs Per Day: 2 Years Smoked: quit 1999 e-Cigarette/Vaping Use: Never Used Second Hand Smoke Exposure: No Have you been hit, kicked, punched, or otherwise hurt by someone within the past year? 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 Current occupational exposures/hazards: No Cognitive needs: No Hearing needs: No Vision needs: Yes Meds Allergies Allergy/AdvReac Type Severity Reaction Status Date / Time oxycodone [OXYCODONE] Allergy Intermediate ITCHING Verified 04/16/24 06:42 Home Medications ?Medication ?Instructions ?Recorded ?Confirmed ?Last Taken ?Type cholecalciferol (vitamin D3) 50 50 mcg PO DAILY 05/25/20 12/09/23 Unknown History mcg (2,000 unit) tablet multivitamin 1 tab PO DAILY 05/25/20 12/09/23 Unknown History Exam Height,Weight and Vital Signs: Height 5 ft 11 in Weight 84.822 kg Assessment and Plan Assessment Anesthesia Assessment: Chart Reviewed Final Anesthetic Review History of Problems with Anesthesia: No Documented by User: Cathryn Wu MD 04/16/24 07:22 [facility] Past Medical History Medical History Family history of cerebral aneurysm HTN (hypertension) History of alcohol abuse Basal cell carcinoma (BCC) History of depression On beta zoe at home Hx of sigmoidoscopy Shortness of breath Colon cancer screening Vitamin B1 deficiency Hypercholesterolemia Type 2 diabetes mellitus with hyperglycemia Chronic anemia Hypothyroidism Type 2 diabetes mellitus with diabetic polyneuropathy Essential hypertension Family History Family History Father Throat cancer Diabetes Bladder cancer Lung cancer Mother No problems noted. Sister Diabetes Brother Throat cancer Family history of problems with anesthesia: No Surgical History Surgical History History of esophagogastroduodenoscopy (EGD) Status post right foot surgery Hx of colonoscopy Lipoma of right axilla Hx of tonsillectomy Hx of Achilles tendon repair Hx of carpal tunnel repair History of total right knee replacement H/O repair of rotator cuff Social History Social History Household Members: Spouse Housing: House Are you a primary manager wound care to a significant other at home: No Do you presently have visiting nurse or other home services: No Alcohol intake: former Patient Tobacco Use Status: Former Tobacco user Tobacco use type: Cigarette Cigarette Packs Per Day: 2 Years Smoked: quit 1999 e-Cigarette/Vaping Use: Never Used Second Hand Smoke Exposure: No Have you been hit, kicked, punched, or otherwise hurt by someone within the past year? If so, by whom?: No Are you DNR?: No Advance Directives: No Advance Directives Information Provided: Yes Recently lost weight without trying: No Nutrition Risks: No Nutritional Risk service: No Current occupational status: retired Current occupation: [employer] Current occupational exposures/hazards: No Cognitive needs: No Hearing needs: No Vision needs: Yes Meds Allergies Allergy/AdvReac Type Severity Reaction Status Date / Time oxycodone [OXYCODONE] Allergy Intermediate ITCHING Verified 04/16/24 06:42 Home Medications ?Medication ?Instructions ?Recorded ?Confirmed ?Last Taken ?Type cholecalciferol (vitamin D3) 50 50 mcg PO DAILY 05/25/20 12/09/23 Unknown History mcg (2,000 unit) tablet multivitamin 1 tab PO DAILY 05/25/20 12/09/23 Unknown History Exam Airway Mallampati Class: II TM Dist: >3cm Neck ROM: Full Denture: Upper and Lower Assessment and Plan Assessment Anesthesia Assessment: Anesthesia Plan Discussed Final Anesthetic Review Family History of Problems with Anesthesia: No NPO: Yes ASA Class: III Final Preanesthetic Review: No Changes in Pt Med Stat, Meds/Allgs Chart Reviewed, Consent Obtained/Reviewed and Anes Risks/Benef Reviewed Patient Risk: Intermediate Procedure Risk: Low Anesthetic Plan Anesthetic Plan: TIVA Disposition: Standard PACU
--- NOTE | 2024-04-16 06:37 | MHC.SHP ---
Pre-Procedural Eval Section A - 24 Hr Update-Section A only Date of Service: 04/16/24 Section B - Complete if H&P > 30 days Chief Complaint: Benign neoplasm of colon,dysphagia,gerd, Relevant Family History (Specify if Yes): No Relevant Social History: None Present Medications: see Short Stay Collaborative assessment Medical History: Significant History ( Family history of cerebral aneurysm HTN (hypertension) History of alcohol abuse Basal cell carcinoma (BCC) History of depression On beta zoe at home Hx of sigmoidoscopy Shortness of breath Colon cancer screening Vitamin B1 deficiency Hypercholesterolemia Type 2 diabetes mellitus with hyperglyce) History of Previous Operations: Relevant previous surgery/procedure and date(s) (History of esophagogastroduodenoscopy (EGD) Status post right foot surgery Hx of colonoscopy Lipoma of right axilla Hx of tonsillectomy Hx of Achilles tendon repair Hx of carpal tunnel repair History of total right knee replacement H/O repair of rotator cuff) Allergies: Allergies Allergy/AdvReac Type Severity Reaction Status Date / Time oxycodone [OXYCODONE] Allergy Intermediate ITCHING Verified 04/14/24 13:43 Review of Systems Sugical H&P ROS: Negative: Constitution, Cardiovascular, Respiratory, Neurological, Psychiatric, Hem-Onc, Allergic/Immunologic, Gastrointestinal, Genitourinary, Musculoskeletal, Integumentary, Endocrine and Eyes/Ears/Nose/Throat Exam Surgical H&P Exam: Normal: HEENT, Normal: Heart, Normal: Lungs, Normal: Extremities, Normal: Abdomen, Normal: Skin and Normal: Neurological Plan Diagnosis/Plan: Unchanged I have reviewed the history and physical and performed a pertinent physical examination on my patient. No changes have occurred unless specified. Time Spent With Patient Time: Total time managing care of this patient today ____ minutes.
[2024-04-16 06:41] VITALS: BMI 25.2
[2024-04-16] MEDS: Lactated Ringers 1,000 ML 100 ML IVCONT (06:48)
[2024-04-16 06:52] VITALS: BP 110/57; PULSE 66; RESP 18; TEMP 36.8; O2SAT 99
[2024-04-16 06:56] LABS: Glucose, Whole Blood 116 mg/dL (60-115)
--- NOTE | 2024-04-16 08:17 | HO.OPN-COLON ---
Colonoscopy Operative Note Operative Note Date of Service: 04/16/24 Narrative: Operative Information Procedure Description: EGD, Colonoscopy Indication: dysphagia, screening Anesthesia: MAC FLEXIBLE TRANSORAL UPPER GASTROINTESTINAL ENDOSCOPY AND COLONOSCOPY PROCEDURE NOTE UPPER ENDOSCOPY Consent: Indications for the procedure and potential complications of bleeding, perforation, reaction to medications and missed diagnosis were discussed with the patient and informed consent was obtained. Instrument: Olympus GIF H 190 J mid size upper endoscope Monitoring: Vital signs and clinical assessment, continuous EKG monitoring, Pulse oximetry, Carbon Dioxide monitoring and blood pressure monitoring were done throughout the procedure. Procedure: The patient was placed in the left lateral decubitis position and pre-procedure medications were administered and a bite block was placed. The endoscope was inserted into the mouth and advanced under direct vision to the third part of duodenum. A careful inspection was made as the upper endoscope was withdrawn including a retroflexed examination of the proximal stomach; Findings and interventions are described below. Findings: Larynx:normal Esophagus: GE junction at 42 cm, diaphragm hiatus at 42 cm, normal mucosa - balloon dilation to 20 mm at UES and LES, no tears seen Stomach: patchy erythema mucosa with scarring. Biopsies were obtained. Grade 2 flap valve on retroflexed examination of the cardia. Duodenum: Normal. Intervention: Biopsies as noted above COLONOSCOPY Instrument: Olympus variable stiffness pediatric scope 190L Colonoscopy Monitoring: Vital signs and clinical assessment, continuous EKG monitoring, Pulse oximetry, Carbon Dioxide monitoring and blood pressure monitoring were done throughout the procedure. Colon withdrawal time was 6 minutes. Procedure: The patient was placed in the left lateral decubitis position and pre-procedure medications were administered. After a digital rectal examination of the ano-rectum, the video colonoscope was inserted into the rectum and advanced through the colon to the cecum/TI. The colonoscope was slowly withdrawn in a retrograde panoramic fashion and the colon mucosa was carefully examined including a retroflexed view of the rectum. Findings and interventions are described below. Procedure Difficulty:moderate- pressure applied Findings: Terminal Ileum-not intubated Cecum:normal Ascending Colon: normal Transverse Colon -normal Descending Colon:normal Sigmoid Colon: moderate diverticulosis Rectum: Retroflexion with small internal hemorrhoids, grade I Anorectum - normal Colon preparation: [place] Bowel Preparation Scale Right colon; 2 Transverse colon: 2 Left colon; 2 (0 = Unprepared colon segment with mucosa not seen due to solid stool that cannot be cleared. 1 = Portion of mucosa of the colon segment seen, but other areas of the colon segment not well seen due to staining, residual stool and/or opaque liquid. 2 = Minor amount of residual staining, small fragments of stool and/or opaque liquid, but mucosa of colon segment seen well. 3 = Entire mucosa of colon segment seen well with no residual staining, small fragments of stool or opaque liquid) Impression and Post Procedure Diagnosis: Endoscopy Findings: gastritis Colonoscopy Findings: diverticulosis internal hemorrhoids Plan: Await Pathology results Repeat Colonoscopy in 5-6 years due to prio hx of polyps or earlier if clinically indicated High fiber diet leaflet avoid straining at stool, epsom salts and sitz bath, anusol supps or cream Above findings were reviewed with the patient and relevant handouts were provided if indicated.
[2024-04-16 08:23] VITALS: BP 99/52; PULSE 64; RESP 17; TEMP 36.3; O2SAT 99
[2024-04-16 08:38] VITALS: BP 114/64; PULSE 66; RESP 20; TEMP 36.9; O2SAT 97
== END 2024-04-16 09:14 | disposition home or self-care (01) ==
PROVIDERS: PCP Internal Medicine; Visit Provider Internal Medicine Gastroenterology
PROC: (CPT 43249; principal; 2024-04-16 07:30)
DX: Z12.11 Encounter for screening for malignant neoplasm of colon (principal); Z86.0101 Personal history of adenomatous and serrated colon polyps; K57.30 Diverticulosis of large intestine without perforation or abscess without bleeding; K64.0 First degree hemorrhoids; R13.12 Dysphagia, oropharyngeal phase; K22.2 Esophageal obstruction; K29.50 Unspecified chronic gastritis without bleeding; K21.9 Gastro-esophageal reflux disease without esophagitis; K44.9 Diaphragmatic hernia without obstruction or gangrene; I10 Essential (primary) hypertension; E11.65 Type 2 diabetes mellitus with hyperglycemia; E78.00 Pure hypercholesterolemia, unspecified; E51.9 Thiamine deficiency, unspecified; Z85.828 Personal history of other malignant neoplasm of skin; Z79.899 Other long term (current) drug therapy; Z88.5 Allergy status to narcotic agent; F10.11 Alcohol abuse, in remission; Z87.891 Personal history of nicotine dependence; Z98.890 Other specified postprocedural states
CPT/HCPCS: 43249; 43239; G0105; 82947; 88305; 88313; 88342; C1726; J2003; J2704

== ENCOUNTER 2024-05-19 08:47 | Outpatient (AMB) | payer MEDICARE, OTHER, SELFPAY ==
--- NOTE | 2024-05-19 08:53 | A.OFFVIS_ITS ---
Vital Signs 05/19/24 09:03 Height 5 ft 11 in Weight 187 lb 13.341 oz BMI 26.2 BP 120/60 Blood Pressure Location Rt brachial Position Sitting Pulse 66 Pulse Source Pulse Oximeter Pulse Oximetry (%) 99 Oxygen Delivery Method Room Air Intake Visit Reasons: s/p Double Intake Note: ESTABLISHED PATIENT for s/p double w/ TH Chief Complaint; C/O very mild and intermittent reflux with difficulty swallowing. Pt denies any other GI concerns at this time. Pt states that he feels his sx are well controlled. 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 Encouraged patient to eat slowly and smaller meals. Make sure that when he eats something like rice he drinks fluid after each bite. Patient can take magnesium at night time which might help him with some spasms. Patient admits that he also has leg cramps during the night magnesium might also help with that. Patient will return to the office in 2 months to discuss colonoscopy and will send him for upper endoscopy as well. Message sent to surgical schedulers to book procedure for patient. Both patient and his are agreeable to plan of care and verbalizes understanding of instructions. They were given the opportunity to ask questions and all questions answered. ? Thank you for allowing me to participate in his care Medications New magnesium oxide 400 mg PO BEDTIME 30 caps 2RF K59.04 UPPER ENDOSCOPY AND COLONOSCOPY Findings: Larynx:normal Esophagus: GE junction at 42 cm, diaphragm hiatus at 42 cm, normal mucosa - balloon dilation to 20 mm at UES and LES, no tears seen Stomach: patchy erythema mucosa with scarring. Biopsies were obtained. Grade 2 flap valve on retroflexed examination of the cardia. Duodenum: Normal. Intervention: Biopsies as noted above COLONOSCOPY Instrument: Olympus variable stiffness pediatric scope 190L Colonoscopy Monitoring: Vital signs and clinical assessment, continuous EKG monitoring, Pulse oximetry, Carbon Dioxide monitoring and blood pressure monitoring were done throughout the procedure. Colon withdrawal time was 6 minutes. Procedure: The patient was placed in the left lateral decubitis position and pre-procedure medications were administered. After a digital rectal examination of the ano-rectum, the video colonoscope was inserted into the rectum and advanced through the colon to the cecum/TI. The colonoscope was slowly withdrawn in a retrograde panoramic fashion and the colon mucosa was carefully examined including a retroflexed view of the rectum. Findings and interventions are described below. Procedure Difficulty:moderate- pressure applied Findings: Terminal Ileum-not intubated Cecum:normal Ascending Colon: normal Transverse Colon -normal Descending Colon:normal Sigmoid Colon: moderate diverticulosis Rectum: Retroflexion with small internal hemorrhoids, grade I Anorectum - normal Colon preparation: Rembrandt Bowel Preparation Scale Right colon; 2 Transverse colon: 2 Left colon; 2 (0 = Unprepared colon segment with mucosa not seen due to solid stool that cannot be cleared. 1 = Portion of mucosa of the colon segment seen, but other areas of the colon segment not well seen due to staining, residual stool and/or opaque liquid. 2 = Minor amount of residual staining, small fragments of stool and/or opaque liquid, but mucosa of colon segment seen well. 3 = Entire mucosa of colon segment seen well with no residual staining, small fragments of stool or opaque liquid) Impression and Post Procedure Diagnosis: Endoscopy Findings: gastritis Colonoscopy Findings: diverticulosis internal hemorrhoids Plan: Await Pathology results Repeat Colonoscopy in 5-6 years due to prio hx of polyps or earlier if clinically indicated High fiber diet leaflet avoid straining at stool, epsom salts and sitz bath, anusol supps or cream PATHOLOGY RESULTS Diagnosis Stomach, biopsy: Antral-type and oxyntic mucosa with mild chronic inactive inflammation; no Helicobacter organisms seen TODAY'S VISIT Patient is here today for follow-up and to discuss upper endoscopy and colonoscopy results. Patient denies any ill effects from the prep, anesthesia or procedure itself. Patient reports to be feeling fairly well. Symptoms of dysphagia rare. Acid reflux controlled with esomeprazole. Patient reports that he is trying to eat food that is more bland. Patient had mild symptoms last ni ght eating boils carrots and potatoes. [place] like food got stuck a little bit but was able to swallow. Patient admits that he is not drinking enough fluids while he eats. No acid reflux throughout the day or at night time. Patient reports that he does not eat late at night. Patient is here today with his . Upper endoscopy and colonoscopy results discussed with patient. Patient had no polyps, moderate diverticulosis seen. Patient reports that he eats fiber and adds additional fiber to his smoothies every morning. [facility] Medical History Family history of cerebral aneurysm HTN (hypertension) History of alcohol abuse Basal cell carcinoma (BCC) History of depression On beta zoe at home Hx of sigmoidoscopy Shortness of breath Colon cancer screening Vitamin B1 deficiency Hypercholesterolemia Type 2 diabetes mellitus with hyperglycemia Chronic anemia Hypothyroidism Type 2 diabetes mellitus with diabetic polyneuropathy Essential hypertension Surgical History History of esophagogastroduodenoscopy (EGD) Status post right foot surgery Hx of colonoscopy Lipoma of right axilla Hx of tonsillectomy Hx of Achilles tendon repair Hx of carpal tunnel repair History of total right knee replacement H/O repair of rotator cuff Family History Father Throat cancer Diabetes Bladder cancer Lung cancer Mother No problems noted. 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 Current occupational exposures/hazards: No Cognitive needs: No Hearing needs: No Vision needs: Yes Review of Systems Const Denies weight gain and Denies weight loss ENT Reports no additional complaints, Reports dysphagia (1 episode last night) and Denies odynophagia Card Reports no additional complaints Resp Reports no additional complaints GI Denies abdominal pain, Denies belching, Denies melena, Denies bloating, Denies change in bowel habits, Reports dysphagia (1 episode last night), Denies excessive flatus, Denies dyspepsia, Denies heartburn, Denies diarrhea, Denies loose stools, Denies nausea, Denies odynophagia and Denies vomiting Reports no additional complaints Musc Reports no additional complaints Neuro Reports no additional complaints Psych Reports no additional complaints Endo Reports no additional complaints Physical Exam Const General: healthy appearing, no acute distress and well developed Nutritional Appearance: well nourished Orientation/consciousness: patient oriented x3 Resp Effort & Inspection: normal respiratory effort, able to speak in complete sentences, no tracheal deviation and symmetric chest movement Auscultation: clear to auscultation bilaterally Cardio Rate: regular rate GI Inspection: Yes normal to inspection and No distended Palpation (GI): Soft to palpation, not firm, nontender and No hepatosplenomegaly present Auscultation: normal bowel sounds General: Yes no CVA tenderness Back/Spine/Pelvis Back: no CVA tenderness Skin General skin exam: elasticity normal, turgor normal and dry skin Neuro General: patient oriented x3 Psych Appearance: grossly normal Mental Status: mental status grossly normal Assessment & Plan Assessment & Plan (1) Gastroesophageal reflux disease: Code(s): K21.9 - Gastro-esophageal reflux disease without esophagitis Category: Medical Qualifiers: Esophagitis presence: esophagitis presence not specified Qualified Code(s): K21.9 - Gastro-esophageal reflux disease without esophagitis (2) Dysphagia: Code(s): R13.10 - Dysphagia, unspecified Category: Medical Qualifiers: Dysphagia type: oropharyngeal phase Qualified Code(s): R13.12 - Dysphagia, oropharyngeal phase Plan Continue Nexium daily. Avoid dietary triggers and late night snacking. Staying upright for minimum 3 hours after meals discussed with patient. Patient will continue taking magnesium oxide as it helps some with his leg pain at night time. Patient reports that he is moving his bowels better. Continue to increase fluid intake. Follow-up in 6 months, sooner on as needed basis. He is agreeable to this plan and verbalizes understanding of instructions. He was given the opportunity to ask questions and all questions answered. Thank you for allowing me to participate in his care Medications: Refilled magnesium oxide 400 mg PO BEDTIME 90 caps 3RF K59.04 - Chronic idiopathic constipation esomeprazole magnesium (Nexium) 40 mg PO DAILY 90 caps 3RF K21.9 - Gastro- esophageal reflux disease without esophagitis Coding Level of Care Code Est Pt Level 3 (43807) Diagnoses Gastroesophageal reflux disease, unspecified whether esophagitis present K21.9 Esophagitis presence: esophagitis presence not specified Oropharyngeal dysphagia R13.12 Dysphagia type: oropharyngeal phase Time Spent (min) 30 Comment 20 minutes spent with patient and additional 10 minutes spent reviewing his records
[2024-05-19 09:03] VITALS: BP 120/60; PULSE 66; O2SAT 99; BMI 26.2
--- OUTSIDE RECORDS SUMMARY | 2024-05-19 09:36 | XMS_ITS | Patient Health Record ---
Author Organization [facility] Catie hernández [place] Address [address] [place] [address] Care Team Providers Care Full Service Supervisor Name Role Phone Dea Simpson Primary Care Provider Barbara Crawford Unavailable [phone] Saroj Us Unavailable [phone] Allergies Allergen (clinical drug ingredient) Drug/Non Drug Allergy documented on EMR Reaction Allergy Type Onset Date Status acetaminophen / oxycodone Percocet itching Drug Allergy Active Reason For Referral No Information Medications Medication SIG (Take, Route, Frequency, Duration) Notes Start Date End Date Status Citalopram Hydrobromide 20 MG Oral for 90 Active Pioglitazone HCl 30 MG Oral for 90 Active Cyanocobalamin 1000 MCG/ML Injection for 84 Active Trulicity 1.5 MG/0.5ML as directed Subcutaneous Active Diclofenac Sodium 75 MG Oral for 90 Active Vitamin B12 Active Ferrous Sulfate Acti ve Extra Depth Diabetic Shoes with 3 Pair Custom heat-molded multi-density innersoles for 1 year Dx: Active Furosemide 20 MG as directed Orally Active Doxycycline Monohydrate 100 MG 1 capsule Orally Once a day for 10 days 11/19/2022 Not-Taking iron Active Vitamin D 25 MCG (1000 UT) 1 tablet Orally Once a day 02/08/2020 Not-Taking Levothyroxine Sodium 125 MCG 1 tablet in the morning on an empty stomach Orally Active Physical Therapy . . . 2-3x/week for 3-4 weeks Not-Taking Lisinopril 30 MG as directed Orally Once a day Active Baby Aspirin 02/08/2020 Not-Ta gloria Vitamin D3 Active metFORMIN HCl 1000 MG 1 tablet with a me al Oral twice a day Active Doxycycline Monohydrate 100 MG 1 capsule Orally Once a day for 10 days 04/19/2021 Not-Taking Atorvastatin Calcium 40 MG as directed Orally Active Metoprolol Succinate ER 50 MG Oral for 90 Active Doxycycline Monohydrate 100 MG 1 capsule Orally Once a day for 10 days 03/20/2021 Not-Taking Amoxicillin dental appt Active Multivitamin - 1 tablet Orally Once a day for 30 day(s) Active Immunizations Vaccine Route Administration Date Status [...] Problem Status W/U Status Risk Notes Problem Polyneuropathy due to type 2 diabetes mellitus (462723326) Type 2 diabetes mellitus with diabetic polyneuropathy (E11.42) Active confirmed Vital Signs Blood pressure diastolic 80 mm Hg 03/16/2024 Height 8fj12gm in 03/16/2024 Blood pressure systolic 120 mm Hg 03/16/2024 Weight 180 lbs 03/16/2024 BMI 25.1 kg/m2 03/16/2024 Procedures Procedure Date Ordered Date Performed Result Body Sit e 79159-OSEXWCK NAIL, 6 OR MORE 03/16/2024 N/A 80965-WXVB SKIN LESIONS, 2 TO 4 03/16/2024 N/A Encounters Encounter Location Date Provider Diagnosis [facility] [place] [address] [place] [address] 07/24/2023 Saroj Us Type 2 diabetes mellitus with diabetic polyneuropathy E11.42 ; Pain in right toe(s) M79.674 ; Tinea unguium B35.1 ; Pain in left toe(s) M79.675 ; Skin disease L98.9 ; Other hammer toe(s) (acquired), left foot M20.42 ; Other hammer toe(s) (acquired), right foot M20.41 and Ataxic gait R26.[address] [address] 11/13/2023 Saroj Us Type 2 diabetes mellitus with diabetic polyneuropathy E11.42 ; Pain in right toe(s) M79.674 ; Tinea unguium B35.1 ; Pain in left toe(s) M79.675 ; Skin disease L98.9 ; Other hammer toe(s) (acquired), left foot M20.42 ; Other hammer toe(s) (acquired), right foot M20.41 and Ataxic gait R26.[address] [address] 03/16/2024 Barbara Maldonado Type 2 diabetes mellitus with diabetic polyneuropathy E11.42 and Tinea unguium B35.1 Assessments Encounter Date Diagnosis (ICD Code) Assessment Notes Treatment Notes Treatment Clinical Notes Section Notes 07/24/2023 Type 2 diabetes mellitus with diabetic polyneuropathy (ICD-10 - E11.42) 11/13/2023 Type 2 diabetes mellitus with diabetic polyneuropathy (ICD-10 - E11.42) 03/16/2024 Type 2 diabetes mellitus with diabetic polyneuropathy (ICD-10 - E11.42) 03/16/2024 Tinea unguium (ICD-10 - B35.1) 11/13/2023 Pain in right toe(s) (ICD-10 - M79.674) 07/24/2023 Pain in right toe(s) (ICD-10 - M79.674) 07/24/2023 Tinea unguium (ICD-10 - B35.1) 11/13/2023 Tinea unguium (ICD-10 - B35.1) 11/13/2023 Pain in left toe(s) (ICD-10 - M79.675) 07/24/2023 Pain in left toe(s) (ICD-10 - M79.675) 07/24/2023 Skin disease (ICD-10 - L98.9) 11/13/2023 Skin disease (ICD-10 - L98.9) 11/13/2023 Other hammer toe(s) (acquired), left foot (ICD-10 - M20.42) 07/24/2023 Other hammer toe(s) (acquired), left foot (ICD-10 - M20.42) 07/24/2023 Other hammer toe(s) (acquired), right foot (ICD-10 - M20.41) 11/13/2023 Other hammer toe(s) (acquired), right foot (ICD-10 - M20.41) 11/13/2023 Ataxic gait (ICD-10 - R26.0) 07/24/2023 Ataxic gait (ICD-10 - R26.0) Plan Of Treatment Pending Test Test Name Order Date X ray : Foot, left 3V 06/15/2020 X ray : Foot, right 3V 06/15/2020 04014-HADBDMG NAIL, 6 OR MORE 03/16/2024 66350-ORVU SKIN LESIONS, 2 TO 4 03/16/19 25 88488-VLZX SKIN LESIONS, 2 TO 4 03/16/19 21 32468-LMUW SKIN LESIONS, 2 TO 4 06/16/19 21 27322-HYMY SKIN LESIONS, 2 TO 4 09/29/19 21 58849-DTIL SKIN LESIONS, 2 TO 4 01/05/20 21 86326-FVRR SKIN LESIONS, 2 TO 4 03/30/19 22 44657- Removal of Foreign Body, Subcut 0 11/19/2022 Next Appt Details Provider Name:Barbara Hidalgo grace, 07/20/2024 09:15:00 AM, [address] [place], [address], Insurance Providers Payer Name Payer Address Payer Phone Subscriber Number Group Number Insured Name Patient Relationship to Insured Coverage Start Date Coverage End Date Medicare [facility] [address] [place] [address] [id number] Maximus Vu Self - patient is the insured [facility] [address] [place], [place] [address] [phone] [id number] Maximus Vu Self - patient is the insured Medical (General) History Medical History History ICD Code Back,Hip,and Knee pain Depression High blood pressure thyroid Joint implants/screws type II diabetes covid-19 Anemia Hypothyroidism Hyperlipidemia Pain Surgical History Surgery Date(Month/Year) achilles tendon repair knee replacement shoulder surgery carpal tunnel surgery Flex ten R 03/30/21
--- OUTSIDE RECORDS SUMMARY | 2024-05-19 09:36 | XMS_ITS ---
Author Organization [facility] Address [address] [place] [address] Care Team Providers Care Sales Operations Lead Name Role Phone Dea Simpson Primary Care Provider Barbara Crawford Unavailable [phone] Allergies Allergen (clinical drug ingredient) Drug/Non Drug Allergy documented on EMR Reaction Allergy Type Onset Date Status acetaminophen / oxycodone Percocet itching Drug Allergy Active REASON FOR VISIT At Risk Footcare Medications Medication SIG (Take, Route, Frequency, Duration) Notes Start Date End Date Status Vitamin D 25 MCG (1000 UT) 1 tablet Orally Once a day 02/08/2020 Not-Taking Physical Therapy . . . 2-3x/week for 3-4 weeks Not-Taking Baby Aspirin 02/08/2020 Not-Ta gloria Doxycycline Monohydrate 100 MG 1 capsule Orally Once a day for 10 days 04/19/2021 Not-Taking Doxycycline Monohydrate 100 MG 1 capsule Orally Once a day for 10 days 03/20/2021 Not-Taking Pioglitazone HCl 30 MG Oral for 90 Active Trulicity 1.5 MG/0.5ML as directed Subcutaneous Active Vitamin B12 Active Extra Depth Diabetic Shoes with 3 Pair Custom heat-molded multi-density innersoles for 1 year Dx: Active Doxycycline Monohydrate 100 MG 1 capsule Orally Once a day for 10 days 11/19/2022 Not-Taking Levothyroxine Sodium 125 MCG 1 tablet in the morning on an empty stomach Orally Active Lisinopril 30 MG as directed Orally Once a day Active metFORMIN HCl 1000 MG 1 tablet with a me al Oral twice a day Active Metoprolol Succinate ER 50 MG Oral for 90 Active Multivitamin - 1 tablet Orally Once a day for 30 day(s) Active Cyanocobalamin 1000 MCG/ML Injection for 84 Active Diclofenac Sodium 75 MG Oral for 90 Active Ferrous Sulfate Acti ve Furosemide 20 MG as directed Orally Active iron Active Citalopram Hydrobromide 20 MG Oral for 90 Active Vitamin D3 Active Atorvastatin Calcium 40 MG as directed Orally Active Amoxicillin dental appt Active Social History [...] other tobacco user? No Vital Signs Height 5vi80ss in 03/16/2024 Weight 180 lbs 03/16/2024 BMI 25.1 kg/m2 03/16/2024 Blood pressure systolic 120 mm Hg 03/16/19 25 Blood pressure diastolic 80 mm Hg 025 Procedures Procedure Date Ordered Date Performed Result Body Sit e 94784-GJNLANF NAIL, 6 OR MORE 03/16/2024 N/A 36110-XPCE SKIN LESIONS, 2 TO 4 03/16/2024 N/A Encounters Encounter Location Date Provider Diagnosis [facility] [address] [address] 03/16/2024 Barbara Maldonado Type 2 diabetes mellitus with diabetic polyneuropathy E11.42 and Tinea unguium B35.1 Assessments Encounter Date Diagnosis (ICD Code) Assessment Notes Treatment Notes Treatment Clinical Notes Section Notes 03/16/2024 Type 2 diabetes mellitus with diabetic polyneuropathy (ICD-10 - E11.42) 03/16/2024 Tinea unguium (ICD-10 - B35.1) Plan Of Treatment Pending Test Test Name Order Date 34114-PQZIELD NAIL, 6 OR MORE 03/16/2024 94729-MRGM SKIN LESIONS, 2 TO 4 03/16/19 25 Next Appt Details Follow Up: 3 Months, Reason: Provider Name:Barbara edwards, 07/20/2024 09:15:00 AM, [address] [place] [address], [phone], Procedure Notes * Category Sub-Category Detail Notes Debride Nail 6-10 Nail debridement Due to the cl inical pathology outlined in the exam findings, performance of this nail treatment is medically necessary as its management by an unskilled/untrained nonprofessional would put this patients foot and overall health at risk. Therefore, debridement to affected nail(s), as described in exam ( TA, T1, T2, T3, T4, T5, T6, T7, T8, T9) was performed exclusively by the physician of record to reduce/remove overall nail length, girth, thickness, subungual debris, and necrotic tissue, by manual and/or electrical means through the use of a nail nipper and/or dremel-type cutlery grinder, to a more viable healthy nail plate or bed tissue 6-10 nails in total. Silver nitrate was used for any petechial bleeding as necessary. Definitive antifungal treatment options, both pharmaceutical and surgical, have been reviewed and discussed with the patient. The patient solely prefers the use of intermittent/as needed professional debridement services for their nail condition and understands the need for additional periodic treatments to maintain effectiveness in symptomatic relief - 42450 Keratoma Treatment Parring or Cutting o f Benign Hyperkeratotic Lesion(s) (-56) 2-4 Lesions - Due to the at risk nature of the patients medical condition as documented in the exam findings, performance of this keratoderma treatment is medically necessary as its management by an unskilled/untrained nonprofessional would put this patients foot and overall health at risk. Therefore, the benign hyperkeratotic lesions, ( 2 ) in total, locations as stated and described in the exam ( plantar heels B/L), were pared, and/or cut utilizing a sterile 15 blade, tissue nippers, and/or power dremel instrumentation by the physician of record - 71346 Progress Notes * Maximus CARTER HDOB: [birth year] (73 yo M)Acc No.[id number]:03/16/2024 Progress Note Patient:?Maximus CARTER Provider:?Barbara Maldonado DPM :1950???Age:73 Y???Sex:Male Paul e:03/16/2024 Address:[address] [place] [address], [place] Pcp:Dea Simpson Subjective: * Chief Complaints: * ???At Risk Footcare * HPI: ???At Risk footcare:?Pt States Last PCP Visit:?Date?07/10/2023 * ROS:?General/Constitutional:?Nausea?denies.?Vomiting?denies.?Hunger Thirst?denies.?Loss appetite?denies.?Chills?denies.?Fatigue?denies.?Fever?denies.?Night Sweats?denies.?Unexplained weight loss?denies.?Unexplained [...] yes, occasional. ?Marital status: . 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 * Medications:?TakingVitamin D 3 Atorvastatin Calcium 40 MG Tablet as directed Orally Amoxicillin , Notes to Pharmacist: dental apptCitalopram Hydrobromide 20 MG Tablet Oral Cyanocobalamin 1000 MCG/ML Solution Injection Diclofenac Sodium 75 MG Tablet Delayed Release Oral Ferrous Sulfate Furosemide 20 MG Tablet as directed Orally iron Levothyroxine Sodium 125 MCG Capsule 1 tablet in the morning on an empty stomach Orally Lisinopril 30 MG Tablet as directed Orally Once a day metFORMIN HCl 1000 MG Tablet 1 tablet with a meal Oral twice a day Metoprolol Succinate ER 50 MG Tablet Extended Release 24 Hour Oral Multivitamin - Tablet 1 tablet Orally Once a day Pioglitazone HCl 30 MG Tablet Oral Trulicity 1.5 MG/0.5ML Solution Pen-injector as directed Subcutaneous Vitamin B12 Extra Depth Diabetic Shoes with 3 Pair Custom heat-molded multi-density innersoles for 1 year Dx: Taking Vitamin D3 Taking Atorvastatin Calcium 40 MG Tablet as directed Orally Taking Amoxicillin , Notes to Pharmacist: dental apptTaking Citalopram Hydrobromide 20 MG Tablet Oral Taking Cyanocobalamin 1000 MCG/ML Solution Injection Taking Diclofenac Sodium 75 MG Tablet Delayed Release Oral Taking Ferrous Sulfate Taking Furosemide 20 MG Tablet as directed Orally Taking iron Taking Levothyroxine Sodium 125 MCG Capsule 1 tablet in the morning on an empty stomach Orally Taking Lisinopril 30 MG Tablet as directed Orally Once a day Taking metFORMIN HCl 1000 MG Tablet 1 tablet with a meal Oral twice a day Taking Metoprolol Succinate ER 50 MG Tablet Extended Release 24 Hour Oral Taking Multivitamin - Tablet 1 tablet Orally Once a day Taking Pioglitazone HCl 30 MG Tablet Oral Taking Trulicity 1.5 MG/0.5ML Solution Pen-injector as directed Subcutaneous Taking Vitamin B12 Taking Extra Depth Diabetic Shoes with 3 Pair Custom heat-molded multi-density innersoles for 1 year Dx: Not-Taking/PRNDoxycycline Monohydrate 100 MG Capsule 1 capsule Orally Once a day Vitamin D 25 MCG (1000 UT) Tablet 1 tablet Orally Once a day Physical Therapy . . . . 2-3x/week Baby Aspirin Doxycycline Monohydrate 100 MG Capsule 1 capsule Orally Once a day Doxycycline Monohydrate 100 MG Capsule 1 capsule Orally Once a day Medication List reviewed and reconciled with the patientNot-Taking/PRN Doxycycline Monohydrate 100 MG Capsule 1 capsule Orally Once a day Not-Taking/PRN Vitamin D 25 MCG (1000 UT) Tablet 1 tablet Orally Once a day Not-Taking/PRN Physical Therapy . . . . 2-3x/week Not- Taking/PRN Baby Aspirin Not-Taking/PRN Doxycycline Monohydrate 100 MG Capsule 1 capsule Orally Once a day Not-Taking/PRN Doxycycline Monohydrate 100 MG Capsule 1 capsule Orally Once a day Medication List reviewed and reconciled with the patient * Allergies:?Percocet: itching - Side Effectsyes[Allergies Verified] Objective: * Vitals:?Ht:9pl82jl, Wt:180, BMI:25.1, Shoe size:10.5, BP:120/80mm Hg, BS:122, Ht-cm: 180.34 cm, Wt-k.65 kg. * Examination: ???CQM Exceptions:: ?Hemoglobin A1c not performed?Reason:?No reason specified?Ophthalmology Referral: ?DIABETES EYE EXAM?Procedure Performed:?No ?Findings of Diabetic Eye Exam:?no retinopathy?Neurological: ?SENSORY:?(DM/Neuro) Neurological exam demonstrates reduced sharp/dull pin prick discrimination reduced light touch sensation reduced vibration sensation reduced proprioception sensation in a stocking fashion 5.07 monofilament test performed at plantar aspects of 5 varied sites per foot shows sensation plantar aspects absent at Forefoot B/L.?Nails: ?NAILS are:?Elongated, overgrown, dystrophic, lytic, greater than 3mm thick, discolored and friable with crumbly malodorous subungual debris, with dull pain on palpation due to neuropathy?, TA, T1, T2, T3, T4, T5, T6, T7, T8, T9.?Dermatologic: ?SKIN FINDINGS:?Skin exam reveals Keratotic lesion(s) located at?plantar heels B/L.?Vascular: ?DP PULSES (B):??0/4, B/L.?PT PULSES (B):? 1/4, B/L.?CAPILLARY FILL TIME:?3 secs. per digit. B/L.?TROPHIC CONDITION-TEXTURE/ELASTICITY/TURGOR/HAIR GROWTH (B):?normal, B/L.?TEMPERTURE GRADIENT (C):?normal, B/L.?PIGMENTATION:?normal, B/L.?EDEMA (C):?absent, B/L.?TELANGECTASIA:?absent, B/L.?Orthopedic: ?MUSCLE STRENGTH:?5/5 all groups in a symmetrical fashion, B/L , 5/5 all groups in a symmetrical fashion, B/L.?General Examination: ?GENERAL APPEARANCE:?Reveals a pleasant, alert, well nourished, well- developed, well hydrated individual, who demonstrates proper attention to hygiene/body habitus, and is in no acute distress.?ORIENTED:?person, place, and time , person, place, and time.? Assessment: * Assessment: 1.?Type 2 diabetes mellitus with diabetic polyneuropathy - E11.42 (Primary)???2.?Tinea unguium - B35.1??? Plan: * Treatment: * Procedures:?Debride Nail 6-10:?Nail debridement?Due to the clinical pathology outlined in the exam findings, performance of this nail treatment is medically necessary as its management by an unskilled/untrained nonprofessional would put this patients foot and overall health at risk. Therefore, debridement to affected nail(s), as described in exam ( TA, T1, T2, T3, T4, T5, T6, T7, T8, T9)??was performed exclusively by the physician of record to reduce/remove overall nail length, girth, thickness, subungual debris, and necrotic tissue, by manual and/or electrical means through the use of a nail nipper and/or dremel-type cutlery grinder, to a more viable healthy nail plate or bed tissue 6- 10 nails in total. Silver nitrate was used for any petechial bleeding as necessary. Definitive antifungal treatment options, both pharmaceutical and surgical, have been reviewed and discussed with the patient. The patient solely prefers the use of intermittent/as needed professional debridement services for their nail condition and understands the need for additional periodic treatments to maintain effectiveness in symptomatic relief - 87138.?Keratoma Treatment:?Parring or Cutting of Benign Hyperkeratotic Lesion(s)?(-56) 2-4 Lesions - Due to the at risk nature of the patients medical condition as documented in the exam findings, performance of this keratoderma treatment is medically necessary as its management by an unskilled/untrained nonprofessional would put this patients foot and overall health at risk. Therefore, the benign hyperkeratotic lesions, ( 2 ) in total, locations as stated and described in the exam ( plantar heels B/L), were pared, and/or cut utilizing a sterile 15 blade, tissue nippers, and/or power dremel instrumentation by the physician of record - 36041.? * Procedure Codes:?63031 DEBRI DE NAIL, 6 OR MORE, Modifiers: XS 67773 TRIM SKIN LESIONS, 2 TO 4, Modifiers: XS * Follow Up:?3 Months * Images: * Sign off status: Completed true * Provider:?Barbara Maldonado DPM Date:?0 03/16/2024 Generated for Mariama ames/Zaira/eTransmitting on:?05/19/2024 09:36 AM EDT History and Physical Notes * HPI (History of Present Illness) Category Sub-Category Detail Notes Category Not es At Risk footcare Pt States Last PCP Visit: Date: 4 Examination Category Sub-Category Detail Notes Category Not es Neurological SENSORY: (DM/Neuro) Neuro logical exam demonstrates reduced sharp/dull pin prick discrimination reduced light touch sensation reduced vibration sensation reduced proprioception sensation in a stocking fashion 5.07 monofilament test performed at plantar aspects of 5 varied sites per foot shows sensation plantar aspects absent at Forefoot B/L Dermatologic SKIN FINDINGS: Skin exam reveal s Keratotic lesion(s) located at plantar heels B/L Orthopedic MUSCLE STRENGTH: 5/5 all groups in a symmetrical fashion, B/L , 5/5 all groups in a symmetrical fashion, B/L General Examination GENERAL APPEARANCE: Reveals a pleasant, alert, well nourished, well-developed, well hydrated individual, who demonstrates proper attention to hygiene/body habitus, and is in no acute distress ORIENTED: person, place, and t renetta , person, place, and time Ophthalmology Referral DIABETES EYE EXAM Procedure Perform ed:: No Findings of Diabetic Eye Exam:: no retin [...] with crumbly malodorous subungual debris, with dull pain on palpation due to neuropathy , TA, T1, T2, T3, T4, T5, T6, T7, T8, T9 CQM Exceptions: Hemoglobin A1c not performed Reason:: No r ally specified
--- OUTSIDE RECORDS SUMMARY | 2024-05-19 09:37 | XMS_ITS ---
Author Organization [facility] Address [address] [place] [address] Care Team Providers Care Revenue Cycle Manager Name Role Phone Dea Simpson Primary Care Provider UnavailBarbara Blum Unavailable [phone] Saroj Us Unavailable [phone] Allergies Allergen (clinical drug ingredient) Drug/Non Drug [...] other tobacco user? No Vital Signs Height 9ci39jo in 11/13/2023 Weight 180 lbs 11/13/2023 BMI 25.1 kg/m2 11/13/2023 Encounters Encounter Location Date Provider Diagnosis [facility] [place] [address] [place] [address] 11/13/2023 Saroj Us Type 2 diabetes mellitus [...] 4 Months, Reason: Provider Name:Barbara Hidalgo grace, 07/20/2024 09:15:00 AM, [address] [place], [address], Procedure Notes * Category Sub-Category Detail Notes [...] as necessary. Patient chooses, no pharmaceutical tx (73801) Keratoma Treatment Parring or Cutting o f Benign Hyperkeratotic Lesion(s) 24475 (2-4 Lesions) - The Benign hyperkeratotic lesions, as described above were pared, and/or cut utilizing a sterile #15 blade, tissue nippers, and/or dremel Progress Notes * Maximus CARTER HDOB: [birth year] (73 yo M)Acc No.[id number]:11/13/2023 Progress Note Patient:?Horace Maximus Dodie Provider:?Saroj Us DPM :1950???Age:73 Y???Sex:Male Paul e:11/13/2023 Address:[address] [place], [place] [id number] Pcp:Dea Simpson Subjective: * Chief Complaints: * [...] yes, occasional. ?Marital status: . 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 * Medications:?TakingVitamin D 3 Atorvastatin Calcium 40 [...] - Side Effectsyes[Allergies Verified] Objective: * Vitals:?Ht: 2ug30ga, Wt:180, BMI:25.1, Shoe size: 10.5, BS: not taken, Ht-cm: 180.34 cm, Wt-k.65 kg. * ???Past Orders: ???Lab:HEMOGLOBIN A1C (GLYCO HEMOGLOBIN) (Order Date - 03/14/2022) (Collection Date - 02/21/2022) ? Value Reference Range ?HEMOGLOBIN A1C % (HH) 7.0 * Examination: ???Ophthalmology Referral: ?DIABETES EYE EXAM?Diabetic Retinopathy Screening:?Yes ?Findings of Diabetic Eye Exam:?no retinopathy?Neurological: ?SENSORY:?Neurological exam demonstrates, reduced vibration sensation, 5.07 [...] and in no acute distress.?ORIENTED:?person,place, and time.?FOOT EXAM:?Lower Extremity Neurological Exam performed:?Yes ?Visual exam of foot performed:?Yes ?Date?11/13/2023 ?Sensory testing performed:?sensations diminished ?Pedal pulse taking performed:?1+?Orthopedic: ?MUSCLE STRENGTH:?5/5 all groups in a symmetrical [...] as necessary. Patient chooses, no pharmaceutical tx (34976).?Keratoma Treatment:?Parring or Cutting of Benign Hyperkeratotic Lesion(s)?23588 (2-4 Lesions) - The Benign hyperkeratotic lesions, as described above were pared, and/or cut utilizing a sterile #15 blade, tissue nippers, and/or dremel.? * Procedure Codes:?96062 DEBRI DE NAIL, 6 OR MORE, Modifiers: XS 88520 TRIM SKIN LESIONS, 2 TO 4, Modifiers: XS * Follow Up:?4 Months * Images: * Sign off status: Completed true * Provider:?Saroj Us DPM Date:? 024 Generated for Printandrew ames/Zaira/eTransmitting on:?05/19/2024 09:37 AM EDT History and Physical Notes * [...]
--- OUTSIDE RECORDS SUMMARY | 2024-05-19 09:37 | XMS_ITS ---
Author Organization [facility] Address [address] [place] [address] Care Team Providers Care Commercial Solar Sales Consultant Name Role Phone Dea Simpson Primary Care Provider UnavailBarbara Blum Unavailable [phone] Saroj Us Unavailable [phone] Allergies Allergen (clinical drug ingredient) Drug/Non Drug [...] 024 Encounters Encounter Location Date Provider Diagnosis [facility] [place] [address] [place] [address] 07/24/2023 Saroj Us Type 2 diabetes mellitus [...] Provider Name:Barbara Hidalgo grace, 07/20/2024 09:15:00 AM, [address] [place] [address], [phone], Procedure Notes * Category Sub-Category Detail Notes [...] as necessary. Patient chooses, no pharmaceutical tx (30275) Keratoma Treatment Parring or Cutting o f Benign Hyperkeratotic Lesion(s) 31774 (2-4 Lesions) - The Benign hyperkeratotic lesions, as described above were pared, and/or cut utilizing a sterile #15 blade, tissue nippers, and/or dremel Progress Notes * Maximus CARTER HDOB: [birth year] (72 yo M)Acc No.[id number]:07/24/2023 Progress Note Patient:?Maximus Carter H Provider:?Saroj Us DPM :1950???Age:72 Y???Sex:Male Paul e:07/24/2023 Address:[address] [place] [address], [facility] Pcp:Dea Simpson Subjective: * Chief Complaints: * [...] yes, occasional. ?Marital status: . 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 * Medications:?TakingVitamin D 3 Atorvastatin Calcium 40 [...] ???Ophthalmology Referral: ?DIABETES EYE EXAM?Diabetic Retinopathy Screening:?Yes 02/2022 ?Findings of Diabetic Eye Exam:?no retinopathy?Neurological: ?SENSORY:?Neurological [...] Exam performed:?Yes ?Visual exam of foot performed:?Yes ?Date?03/16/2020 ?Sensory testing performed:?sensations diminished ?Pedal pulse taking [...] as necessary. Patient chooses, no pharmaceutical tx (21005).?Keratoma Treatment:?Parring or Cutting of Benign Hyperkeratotic Lesion(s)?61845 (2-4 Lesions) - The Benign hyperkeratotic lesions, as described above were pared, and/or cut utilizing a sterile #15 blade, tissue nippers, and/or dremel.? * Procedure Codes:?48464 DEBRI DE NAIL, 6 OR MORE, Modifiers: XS 43373 TRIM SKIN LESIONS, 2 TO 4, Modifiers: XS * Follow Up:?4 Months * Images: * Sign off status: Completed true * Provider:?Saroj Us DPM Date:? 024 Generated for Mariama ames/Zaira/Rosales on:?05/19/2024 09:36 AM EDT History and Physical [...]
== END 2024-05-19 09:16 | disposition home or self-care (01) ==
LOC: HO.HGI 08:47
PROVIDERS: PCP Internal Medicine; Visit Provider Nurse Practitioner Family
DX: K21.9 Gastro-esophageal reflux disease without esophagitis (principal); R13.12 Dysphagia, oropharyngeal phase
CPT/HCPCS: 99213

== ENCOUNTER → 2024-05-19 08:47 | Outpatient (BNVA) | payer MEDICARE, OTHER, SELFPAY | PROVIDERS: PCP Internal Medicine; Visit Provider Nurse Practitioner Family | DX: K21.9 Gastro-esophageal reflux disease without esophagitis (principal); R13.12 Dysphagia, oropharyngeal phase | CPT/HCPCS: 99212 ==

== ENCOUNTER 2024-11-18 07:59 | Outpatient (AMB) | payer MEDICARE, OTHER, SELFPAY ==
--- NOTE | 2024-11-18 08:03 | A.OFFVIS_ITS ---
Vital Signs 11/18/24 08:07 Height 5 ft 11 in Weight 186 lb BMI 25.9 BP 136/62 Blood Pressure Location Rt brachial Position Sitting Pulse 64 Pulse Source Pulse Oximeter Pulse Oximetry (%) 98 Oxygen Delivery Method Room Air Intake Visit Reasons: 6m GERD Dysphagia Tubular adenoma of colon Intake Note: ESTABLISHED PATIENT for GERD + Dysphagia mgmt. Chief Complaint; Pt denies any GI changes or new sx at this time. Confirms still taking Rx as instructed. 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 Avoid dietary triggers and late night snacking. Staying upright for minimum 3 hours after meals discussed with patient. Patient will continue taking magnesium oxide as it helps some with his leg pain at night time. Patient reports that he is moving his bowels better. Continue to increase fluid intake. Follow-up in 6 months, sooner on as needed basis. He is agreeable to this plan and verbalizes understanding of instructions. He was given the opportunity to ask questions and all questions answered. ? Thank you for allowing me to participate in his care Refilled magnesium oxide 400 mg PO BEDTIME 90 caps 3RF K59.04 esomeprazole magnesium (Nexium) 40 mg PO DAILY 90 caps 3RF K21.9 TODAY'S VISIT: Patient is here today for follow-up. Patient reports that he has been doing well. No episodes of dysphagia. Denies dyspepsia. Taking Nexium every morning. Denies any epigastric pain or discomfort. Patient reports good appetite. Denies melena, hematochezia, unintentional weight loss or ribbon like stools. Patient denies any GI concerning symptoms today [facility] Medical History Dental root implant present Family history of cerebral aneurysm HTN (hypertension) History of alcohol abuse Basal cell carcinoma (BCC) History of depression On beta zoe at home Hx of sigmoidoscopy Shortness of breath Colon cancer screening Vitamin B1 deficiency Hypercholesterolemia Type 2 diabetes mellitus with hyperglycemia Chronic anemia Hypothyroidism Type 2 diabetes mellitus with diabetic polyneuropathy Essential hypertension Surgical History History of esophagogastroduodenoscopy (EGD) Status post right foot surgery Hx of colonoscopy Lipoma of right axilla Hx of tonsillectomy Hx of Achilles tendon repair Hx of carpal tunnel repair History of total right knee replacement H/O repair of rotator cuff Family History Father Throat cancer Diabetes Bladder cancer Lung cancer Mother No problems noted. 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 Current occupational exposures/hazards: No Cognitive needs: No Hearing needs: No Vision needs: Yes Review of Systems Const Denies weight gain and Denies weight loss ENT Reports no additional complaints, Denies dysphagia and Denies odynophagia Card Reports no additional complaints Resp Reports no additional complaints GI Denies abdominal pain, Denies belching, Denies melena, Denies bloating, Denies change in bowel habits, Denies dysphagia, Denies excessive flatus, Denies dyspepsia, Denies heartburn, Denies diarrhea, Denies loose stools, Denies nausea, Denies odynophagia and Denies vomiting Reports no additional complaints Musc Reports no additional complaints Neuro Reports no additional complaints Psych Reports no additional complaints Endo Reports no additional complaints Physical Exam Const General: healthy appearing, no acute distress and well developed Nutritional Appearance: well nourished Orientation/consciousness: patient oriented x3 Resp Effort & Inspection: normal respiratory effort, able to speak in complete sentences, no tracheal deviation and symmetric chest movement Auscultation: clear to auscultation bilaterally Cardio Rate: regular rate GI Inspection: Yes normal to inspection and No distended Palpation (GI): Soft to palpation, not firm, nontender and No hepatosplenomegaly present Auscultation: normal bowel sounds General: Yes no CVA tenderness Back/Spine/Pelvis Back: no CVA tenderness Skin General skin exam: elasticity normal, turgor normal and dry skin Neuro General: patient oriented x3 Psych Appearance: grossly normal Mental Status: mental status grossly normal Assessment & Plan Assessment & Plan (1) Dysphagia: Code(s): R13.10 - Dysphagia, unspecified Category: Medical Qualifiers: Dysphagia type: oropharyngeal phase Qualified Code(s): R13.12 - Dysphagia, oropharyngeal phase (2) Gastroesophageal reflux disease: Code(s): K21.9 - Gastro-esophageal reflux disease without esophagitis Category: Medical Qualifiers: Esophagitis presence: esophagitis presence not specified Qualified Code(s): K21.9 - Gastro-esophageal reflux disease without esophagitis Plan Previously patient experienced dysphagia most likely related to reflux that is well controlled now on Nexium. Patient can continue Nexium daily. Avoid dietary triggers and late night snacking. Staying upright for minimum 3 hours after meals discussed with patient. Patient was encouraged to drink water with meals. Chew his food well before swallowing. Follow-up in 6 months, sooner on as needed basis. He is agreeable to this plan and verbalizes understanding of instructions. He was given the opportunity to ask questions and all questions answered. Thank you for allowing me to participate in his care Medications: Refilled esomeprazole magnesium (Nexium) 40 mg PO DAILY 90 caps 3RF K21.9 - Gastro- esophageal reflux disease without esophagitis magnesium oxide 400 mg PO BEDTIME 90 caps 3RF K59.04 - Chronic idiopathic co nstipation Coding Level of Care Code Est Pt Level 3 (36710) Diagnoses Oropharyngeal dysphagia R13.12 Dysphagia type: oropharyngeal phase Gastroesophageal reflux disease, unspecified whether esophagitis present K21.9 Esophagitis presence: esophagitis presence not specified Time Spent (min) 25 Comment 15 minutes spent with patient and additional 10 minutes spent reviewing his records
[2024-11-18 08:07] VITALS: BP 136/62; PULSE 64; O2SAT 98; BMI 25.9
== END 2024-11-18 08:19 | disposition home or self-care (01) ==
LOC: HO.HGI 08:00
PROVIDERS: PCP Internal Medicine; Visit Provider Nurse Practitioner Family
DX: R13.12 Dysphagia, oropharyngeal phase (principal); K21.9 Gastro-esophageal reflux disease without esophagitis
CPT/HCPCS: 99213

== ENCOUNTER → 2024-11-18 07:59 | Outpatient (BNVA) | payer MEDICARE, OTHER, SELFPAY | PROVIDERS: PCP Internal Medicine; Visit Provider Nurse Practitioner Family | DX: R13.12 Dysphagia, oropharyngeal phase (principal); K21.9 Gastro-esophageal reflux disease without esophagitis; K59.04 Chronic idiopathic constipation | CPT/HCPCS: 99212 ==

== ENCOUNTER 2024-11-25 07:55 | Outpatient (AMB) | payer MEDICARE, OTHER, SELFPAY ==
--- OUTSIDE RECORDS SUMMARY | 2024-11-23 05:00 | XMS_ITS ---
Author Organization [facility] Address [address] [place] [address] Care Team Providers Care Pasting Machine Operator Name Role Phone Dea Simpson Primary Care Provider Barbara Crawford [phone] Encounters Encounter Location Date Provider Diagnosis [facility] [address] [place] [address] 11/23/2024 Barbara Maldonado Plan Of Treatment No Information Progress Notes * Maximus CARTER HDOB: [birth year] (74 yo M)Acc No.[id number]:11/23/2024 Progress Note Patient: Maximus SKY Provider: Kendal Maldonado DPM :1950 A ge:74 Y S ex:Male Date:11/23/2024 Address:[address] [place] [address] [facility] [address] [facility] Pcp:Dea Simpson Subjective: * Chief Complaints: * [...] DPM Date: 0 11/23/2024 Generated for Mariama ames/Fachace/eTransmitting on: 11/25/2024 07:57 AM EDT
--- OUTSIDE RECORDS SUMMARY | 2024-11-25 07:57 | XMS_ITS | Encounter Summary ---
Author Organization [facility] Address [address] [address] Phone Care Team Providers Care Fruit Loader Machine Operator Name Role Phone Mohsen Mcintosh DO Primary Care Provider [phone] eDa Simpson MD Primary Care Provider [phone] Encounter Details Date Type Department Care Team (Late st Contact Info) Description 10/21/2017 Procedure Pass [facility] [address] [place] [id number] Social History Tobacco Use Types Packs/Day Years Used Date Smoking Tobacco: Former Sex and Gender Information Value Date Recorded Sex Assigned at Not on file Legal Sex Male 4:06 PM EDT Gender Identity Not on file Sexual Orientation Not on file documented as of this encounter Plan of Treatment Upcoming Encounters Date Type Department Care Team (Late st Contact Info) Description 12/25/[address] [facility] [address] [place] [address] 12/24/2025 7:[address] [facility], [address] [place] [address] Lit Doan PA-C [address] [place] [address] [email or web address] documented as of this encounter Visit Diagnoses Not on filedocumented in this encounter Care Teams Fruit Loader Machine Operator Relationship Specialty Start Date End Date Mohsen Mcintosh DO [address] [place] [address] PCP - General Internal Medicine 08/12/15 12/10/19 Dea Simpson MD [address] [place] [id number] PCP - General Internal Medicine 12/11/19 documented as of this encounter Additional Source Comments The information contained in this document represents components of the legal health record. It is not the complete legal health record.[facility]
--- OUTSIDE RECORDS SUMMARY | 2024-11-25 07:57 | XMS_ITS | Encounter Summary ---
Author Organization [facility] Address [address] [place] [address] Phone Care Team Providers Care Algorithm Developer Name Role Phone Dea Simpson MD Primary Care Provider [phone] Encounter Details Date Type Department Care Team (Late st Contact Info) Description 12/20/[address] [facility], [address] [place] [address] Social History Tobacco Use Types Packs/Day Years Used Date Smoking Tobacco: Former Smokeless Tobacco: Never Sex and Gender Information Value Date Recorded Sex Assigned at Not on file Legal Sex Male 4:06 PM EDT Gender Identity Not on file Sexual Orientation Not on file documented as of this encounter Plan of Treatment Upcoming Encounters Date Type Department Care Team (Late st Contact Info) Description 12/25/[address] [facility], [address] [place] [address] 12/24/2025 7:[address] [facility], [address] [place] [address] Lit Doan PA-C [address] [place] [phone] [email or web address] documented as of this encounter Visit Diagnoses Not on filedocumented in this encounter Care Teams Algorithm Developer Relationship Specialty Start Date End Date Dea Simpson MD [address] [place] [address] Drive [address] [place] [phone] PCP - General Internal Medicine 12/11/19 documented as of this encounter Additional Source Comments The information contained in this document represents components of the legal health record. It is not the complete legal health record.[facility]
--- OUTSIDE RECORDS SUMMARY | 2024-11-25 07:57 | XMS_ITS | Patient Health Record ---
[facility] Address [address] [facility] [place] [address] Care Team Providers Care Tank Car Reconditioner Name Role Phone Dea Simpson Primary Care Provider Barbara Crawford Unavailable [phone] Allergies Allergen (clinical drug ingredient) Drug/Non Drug Allergy documented on EMR Reaction Allergy Type Onset Date Status acetaminophen / oxycodone Percocet itching Drug Allergy Active Results Component Value Reference Range Notes HEMOGLOBIN A1C (GLYCOHEMOGLO BIN) Reviewed date:07/20/2024 09:27:57 AM Interpretation: Performing Lab: Notes/Report: HEMOGLOBIN A1C % (HH) 6.5 Reason For Referral No Information Medications Medication SIG (Take, Route, Frequency, Duration) Notes Start Date End Date Status Multivitamin - 1 tablet Orally Once a day; Duration: 30 day(s) Active Pioglitazone HCl 30 MG Oral; Duration: 90 Active metFORMIN HCl 1000 MG 1 tablet with a me al Oral twice a day Active Metoprolol Succinate ER 50 MG Oral; Duration: 90 Active Extra Depth Diabetic Shoes with 3 Pair Custom heat-molded multi-density innersoles for 1 year Dx: Active Doxycycline Monohydrate 100 MG 1 capsule Orally Once a day; Duration: 10 days 11/19/2022 Not-Taking Trulicity 1.5 MG/0.5ML as directed Subcutaneous Active Vitamin B12 Active Vitamin D3 Active Vitamin D 25 MCG (1000 UT) 1 tablet Orally Once a day 02/08/2020 Not-Taking Physical Therapy . . . 2-3x/week; Duration: 3-4 weeks Not-Taking Baby Aspirin 02/08/2020 Not-Ta gloria Amoxicillin dental appt Active Citalopram Hydrobromide 20 MG Oral; Duration: 90 Act sarita Doxycycline Monohydrate 100 MG 1 capsule Orally Once a day; Duration: 10 days 04/19/2021 Not-Taking Atorvastatin Calcium 40 MG as directed Orally Active Doxycycline Monohydrate 100 MG 1 capsule Orally Once a day; Duration: 10 days 03/20/2021 Not-Taking Ferrous Sulfate Acti ve Furosemide 20 MG as directed Orally Active Cyanocobalamin 1000 MCG/ML Injection; Duration: 84 Active Diclofenac Sodium 75 MG Oral; Duration: 90 Active Extra Depth Orthopedic Shoes (1 Pair) with Customized Heat Molded Multidensity Innersoles (3 Pair) as directed Dx: NIDDM/Polyneuropathy (E11.42), Hammertoe Foot Deformity (M20.41,M20.42), Preulcerative Skin Lesion(s) (L85.1 07/20/2024 Active Lisinopril 30 MG as directed Orally Once a day Active iron Active Levothyroxine Sodium 125 MCG 1 tablet in the morning on an empty stomach Orally Active Immunizations Vaccine Route Administration Date Status Comme nts Influenza Unknown 12/05/2021 Administered Influenza Unknown 11/09/2022 Administered COVID-19 Moderna Vaccine Unknown 11/21/2020 Administered 1st 04/27/2020 2nd 05/25/2020 Social History Tobacco Use: Social History Observation Description Date Details (start date - stop date) Never Smoker NA - NA Tobacco use other than smoking: Question Answer Notes Are you an other tobacco user? No Tobacco Control (Standard) Question Answer Notes Tobacco use: Nonsmoker Additional Findings: Tobacco non-user Current no nsmoker AUDIT-C (Standard) Question Answer Notes Did you have a drink containing alcohol in the p ast year? No Points 0 Interpretation Negative Problems Problem Type SNOMED Code ICD Code Onset Dates Problem Status W/U Status Risk Notes Problem Acquired hammer toe of right foot (1857005563859158 ) Other hammer toe(s) (acquired), right foot (M20.41) Active confirmed Problem Acquired hammer toe of left foot (4288140318228443 ) Other hammer toe(s) (acquired), left foot (M20.42) Active confirmed Problem Polyneuropathy due to type 2 diabetes mellitus (336306551) Type 2 diabetes mellitus with diabetic polyneuropathy (E11.42) Active confirmed Vital Signs Blood pressure diastolic 65 mm Hg 07/20/2024 Height 0sb99sa in 07/20/2024 Blood pressure systolic 128 mm Hg 07/20/2024 Weight 180 lbs 07/20/2024 BMI 25.1 kg/m2 07/20/2024 Procedures Procedure Date Ordered Date Performed Result Body Sit e 64518-DORJFQE NAIL, 6 OR MORE 03/16/2024 N/A 23768-VSRU SKIN LESIONS, 2 TO 4 03/16/2024 N/A 92588-JZWIHMS NAIL, 6 OR MORE 07/20/2024 N/A 31214-IZOW SKIN LESIONS, 2 TO 4 07/20/2024 N/A Encounters Encounter Location Date Provider Diagnosis [facility] [address] 03/16/2024 Barbara Maldonado Type 2 diabetes mellitus with diabetic polyneuropathy E11.42 and Tinea unguium B35.[address] [address] 07/20/2024 Barbara Maldonado Other hammer toe(s) (acquired), right foot M20.41 ; Other hammer toe(s) (acquired), left foot M20.42 ; Type 2 diabetes mellitus with diabetic polyneuropathy E11.42 and Tinea unguium B35.1 Assessments Encounter Date Diagnosis (ICD Code) Assessment Notes Treatment Notes Treatment Clinical Notes Section Notes 07/20/2024 Other hammer toe(s) (acquired), right foot (ICD-10 - M20.41) Patient Educated with: DIABETIC FOOT CARE INSTRUCTIONS. pdf (DIABETIC FOOT CARE INSTRUCTIONS. pdf) 07/20/2024 Other hammer toe(s) (acquired), left foot (ICD-10 - M20.42) 03/16/2024 Type 2 diabetes mellitus with diabetic polyneuropathy (ICD-10 - E11.42) 03/16/2024 Tinea unguium (ICD-10 - B35.1) 07/20/2024 Type 2 diabetes mellitus with diabetic polyneuropathy (ICD-10 - E11.42) 07/20/2024 Tinea unguium (ICD-10 - B35.1) Plan Of Treatment Pending Test Test Name Order Date X ray : Foot, left 3V 06/15/2020 X ray : Foot, right 3V 06/15/2020 61461-DJUNEPV NAIL, 6 OR MORE 07/20/2024 26817-GJZGQIY NAIL, 6 OR MORE 03/16/2024 53676-VHBS SKIN LESIONS, 2 TO 4 03/16/19 25 64561-VBXX SKIN LESIONS, 2 TO 4 03/16/19 21 96031-AVHM SKIN LESIONS, 2 TO 4 06/16/19 21 78898-TJMP SKIN LESIONS, 2 TO 4 09/29/19 21 76566-ILTB SKIN LESIONS, 2 TO 4 01/05/20 21 82950-JLLS SKIN LESIONS, 2 TO 4 03/30/19 22 33922-FNGL SKIN LESIONS, 2 TO 4 07/21/19 78381- Removal of Foreign Body, Subcut 0 11/19/2022 Insurance Providers Payer Name Payer Address Payer Phone Subscriber Number Group Number Insured Name Patient Relationship to Insured Coverage Start Date Coverage End Date Medicare National [employer]t [employer] [address] [place] [address] [id number] Maximus Vu Self - patient is the insured [employer] ([employer]) [address] [place] [address] [phone] [id number] Maximus Vu Self - patient is the insured Medical (General) History Medical History History ICD Code Back,Hip,and Knee pain Depression High blood pressure thyroid Joint implants/screws type II diabetes covid-19 Anemia Hypothyroidism Hyperlipidemia Pain Surgical History Surgery Date(Month/Year) achilles tendon repair knee replacement shoulder surgery carpal tunnel surgery Flex ten R 03/30/21
--- OUTSIDE RECORDS SUMMARY | 2024-11-25 07:57 | XMS_ITS | Clinical Summary ---
Author Organization [facility] Address [address] [address] Phone Care Team Providers Care Counseling Program Leader Name Role Phone Dea Simpson MD Primary Care Provider [phone] Allergies Active Allergy Reactions Criticality Noted Date Comments Percocet (Oxycodone-Acetaminophen) Itching 0 08/24/2015 Medications CITALOPRAM HYDROBROMIDE (CITALOPRAM ORAL) Take by mouth. Active SITAGLIPTIN PHOSPHATE (JANUVIA ORAL) Take by mouth. Active METOPROLOL SUCCINATE ORAL Take by mouth. Active PIOGLITAZONE HCL (PIOGLITAZONE ORAL) Take by mouth. Activ e LEVOTHYROXINE SODIUM (LEVOTHYROXINE ORAL) Take by mouth. Activ e LISINOPRIL ORAL Take by mouth. Active METFORMIN HCL (METFORMIN ORAL) Take by mouth. Active DICLOFENAC SODIUM ORAL Take 75 mg by mouth. Active CHOLECALCIFEROL, VITAMIN D3, (VITAMIN D3 ORAL) Take by mouth. Active multivitamin Liqd Take 5 mL by mouth daily. Active CYANOCOBALAMIN, VITAMIN B-12, (VITAMIN B-12 ORAL) Take by mouth. Activ e BABY ASPIRIN ORAL Take by mouth. Active FUROSEMIDE ORAL Take by mouth. Active dulaglutide (TRULICITY SUBQ) Inject under the skin. Active atorvastatin (LIPITOR) 40 MG tablet Take 40 mg by mouth nightly at bedtime. at bedtime. Active diclofenac sodium (VOLTAREN) 75 MG EC tablet Take 1 tablet by mouth 2 (two) times a day. 4 Active levothyroxine (SYNTHROID, LEVOTHROID) 125 MCG tablet Take 1 tablet by mouth every morning. Active lisinopril (PRINIVIL,ZESTRIL ) 30 MG tablet as directed Orally Once a day Active metFORMIN (GLUCOPHAGE) 1000 MG tablet 1 tablet with a meal Oral twice a day Active metoprolol succinate (TOPROL-XL) 50 MG 24 hr tablet Take 1 tablet by mouth every morning. 4 Active MOUNJARO 7.5 mg/0.5 mL PnIj subcutaneous pen ADMINISTER 7.5 MG UNDER THE SKIN EVERY WEEK Active Active Problems No known active problems Social History Tobacco Use Types Packs/Day Years Used Date Smoking Tobacco: Former Smokeless Tobacco: Never Tobacco Cessation:Counseling Given: Not Answered Education Answer Date Recorded Are you interested in more education? Not on marga e 07/06/2022 Are you concerned about learning? Not on file 07/06/2022 No 07/06/2022 No 07/06/2022 Digital Access Answer Date Recorded No 08/05/2022 No 08/05/2022 Reliable internet access at home? Not on file 08/05/2022 Device with a working camera? Not on file Sex and Gender Information Value Date Recorded Sex Assigned at Not on file Legal Sex Male 4:06 PM EDT Gender Identity Not on file Sexual Orientation Not on file Last Filed Vital Signs Vital Sign Reading Time Taken Comments Blood Pressure - - Pulse - - Temperature 36.1 C (97 F) 12/11/2019 12:01 PM EDT Respiratory Rate - - Oxygen Saturation - - Inhaled Oxygen Concentration - - Weight 84.2 kg (185 lb 9.6 oz) 12/25/2023 2:11 P M EDT Height 175 cm (5' 8.9 ) 12/25/2023 2:11 PM EDT Body Mass Index 27.49 12/25/2023 2:11 PM EDT Plan of Treatment Upcoming Encounters Date Type Department Care Team (Late st Contact Info) Description 12/25/2023 Procedure Pass [facility] [place] [address] 12/24/2025 7:15 AM EDT Appointment [facility] [place] [address] Lit Doan PA-C [address] [place] [phone] [email or web address] Maintenance Due Date Last Done Comments LIPID PANEL 1948 POTASSIUM LEVEL 1948 TSH LEVEL 1948 DEPRESSION SCREENING 1960 SMOKING Hx and SMOKELESS TOBACCO SCREENING 1961 HEPATITIS C SCREENING 1966 ZOSTER VACCINES (2 of 2) 08/21/2017 06/26/2017 CREATININE LEVEL 12/10/2020 12/11/2019, , 10/19/2016, Additional history exists COVID-19 VACCINE ( season) 2023 12/19/2022, 02/26/2022, 06/08/2021, Additional history exists INFLUENZA VACCINE (#1) 2024 , 12/19/2022, 12/25/2021, Additional history exists Adult Td,Tdap Booster 05/20/2031 05/19/2021, 011 PNEUMOCOCCAL VACCINES (50+ years) Completed 01/18/2023, 04/03/2019, 12/31/2017, Additional history exists RSV VACCINE Completed 01/18/2023 HEPATITIS A VACCINES Aged Out No long er eligible based on patient's age to complete this topic HIB VACCINES Aged Out No longer eligi ble based on patient's age to complete this topic MENINGOCOCCAL VACCINES (ACWY) Aged Out No longer eligible based on patient's age to complete this topic MENINGOCOCCAL VACCINES (B) Aged Out N o longer eligible based on patient's age to complete this topic Medical Devices Not on file Procedures Procedure Name Priority Date/Time Associated Diagnosis Comments POCT CREATININE/EGFR Routine 12/11/2019 9:17 AM EDT from Last 3 Months or Most Recently Relevant to Health Maintenance Results * POCT Creatinine/eGFR (12/11/2019 9:17 AM EDT) CRE POC 0.8 0.5 - 1.2 mg/dL [facility] CT [facility] MRI SUITE EGFR POC 90 >59 mL/min/1.7 3m[address] [facility] CT [facility] MRI SUITE Comment:Estimated glomerular filtration rate calculated using the CKD-EPI equation. 12/11/2019 9:17 AM EDT 12/11/2019 9:19 AM EDT us Abner Hernandez MD POINT OF CARE TEST ORDERABLES Final Result [facility] CT & MRI [address] [place] [phone] from Last 3 Months or Most Recently Relevant to Health Maintenance Insurance MEDICARE PART A & B [facility] MEDICARE SUPPLEMENT [facility] Address: [address] [address] MEDICARE PART A & B Member Subscriber Plan / Payer (Ef fective 2013-Present) Name:Maximus Vu Member ID:[id number] Relation to Subscriber:Self Name:Maximus Vu Subscriber ID:[id number] Payer ID:[id number] Group ID:Not on file Type:Medicare Address: [employer] [address] [employer] MEDICARE SUPPLEMENT MEDICARE PART A & B [employer] MEDICARE SUPPLEMENT MEDICARE PART A & B [employer] MEDICARE SUPPLEMENT MEDICARE PART A & B [employer] MEDICARE SUPPLEMENT MEDICARE PART A & B [employer] [facility] EXTENSION MEDICARE SUPPLEMENT MEDICARE PART A & B Member Subscriber Plan / Payer ( fective 2013-Present) Name:Maximus Vu Member ID:[id number] Relation to Subscriber:Self Name:Maximus Vu Subscriber ID:[id number] Payer ID:[id number] Group ID:Not on file Type:Medicare Address: [employer] [address] [place] [id number] [place] [address] MEDICARE SUPPLEMENT MEDICARE PART A & B MEDICARE SUPPLEMENT MEDICARE PART A & B [facility] EX[employer]ENSION MEDICARE SUPPLEMENT Care Teams Counseling Program Leader Relationship Specialty Start Date End Date Dea Simpson MD [address] [place] [phone] PCP - General Internal Medicine 12/11/19 Additional Source Comments The information contained in this document represents components of the legal health record. It is not the complete legal health record.[facility]
--- OUTSIDE RECORDS SUMMARY | 2024-11-25 07:57 | XMS_ITS | Patient Health Record ---
Author Organization [facility] Address [address] [place] [phone] Care Team Providers Care Fire Marshal Refinery Name Role Phone Cy Pereira Jr Reason For Referral No Information Plan Of Treatment No Information
--- OUTSIDE RECORDS SUMMARY | 2024-11-25 07:57 | XMS_ITS | Encounter Summary ---
Author Organization [facility] Address [address] [place] [address] Phone Care Team Providers Care Surveillance Sensor Operator Name Role Phone Dea Simpson MD Primary Care Provider [phone] Encounter Details Date Type Department Care Team (Late st Contact Info) Description 11/28/2021 Procedure Pass [facility] [place] [address] [place] [address] Social History Tobacco Use Types Packs/Day Years [...] st Contact Info) Description 12/25/2023 Procedure Pass [facility] [place] [address] 12/24/2025 7:15 AM EDT Appointment [facility] [place] [address] Lit Doan PA-C [address] [place] [phone] [email or web address] documented as of this encounter Visit Diagnoses Not on filedocumented in this encounter Care Teams Surveillance Sensor Operator Relationship Specialty Start Date End Date Dea Simpson MD [address] [place] [address] PCP - General Internal Medicine 12/11/19 documented as of this encounter Additional Source Comments The information contained in this document represents components of the legal health record. It is not the complete legal health record.[facility]
--- OUTSIDE RECORDS SUMMARY | 2024-11-25 07:57 | XMS_ITS | Encounter Summary ---
Author Organization [facility] Address [address] [place] [address] Phone Care Team Providers Care Rod Finisher Name Role Phone Mohsen Mcintosh DO Primary Care Provider [phone] Dea Simpson MD Primary Care Provider [phone] Encounter Details Date Type Department Care Team (Late st Contact Info) Description 09/18/2016 Procedure Pass [facility] [address] [place] [address] Social History Tobacco Use Types Packs/Day Years [...] st Contact Info) Description 12/25/2023 Procedure Pass [facility] [place] [address] 12/24/2025 7:15 AM EDT Appointment [facility] [place] [address] Lit Doan PA-C [address] [place] [phone] [email or web address] documented as of this encounter Visit Diagnoses Not on filedocumented in this encounter Care Teams Rod Finisher Relationship Specialty Start Date End Date Snow, Mohsen FrancoisDO [address] [place] [address] PCP - General Internal Medicine 08/12/15 12/10/19 Dea Simpson MD [address] [place] [phone] PCP - General Internal Medicine 12/11/19 documented as of this encounter Additional Source Comments The information contained in this document represents components of the legal health record. It is not the complete legal health record.[facility]
--- OUTSIDE RECORDS SUMMARY | 2024-11-25 07:57 | XMS_ITS | Encounter Summary ---
Author Organization [facility] Address [address] [place] [address] Phone Care Team Providers Care Vp Strategy Name Role Phone Mohsen Mcintosh DO Primary Care Provider [phone] Dea Simpson MD Primary Care Provider [phone] Encounter Details Date Type Department Care Team (Late st Contact Info) Description 10/29/2019 Procedure Pass [facility] [address] [place] [address] Social History Tobacco Use Types Packs/Day Years [...] st Contact Info) Description 12/25/2023 Procedure Pass [facility] [place] [address] 12/24/2025 7:15 AM EDT Appointment [facility] [place] [address] Lit Doan PA-C [address] [place] [phone] [email or web address] documented as of this encounter Visit Diagnoses Not on filedocumented in this encounter Care Teams Vp Strategy Relationship Specialty Start Date End Date Mohsen Mcintosh DO [address] [place] [address] PCP - General Internal Medicine 08/12/15 12/10/19 Dea Simpson MD [address] [place] [phone] PCP - General Internal Medicine 12/11/19 documented as of this encounter Additional Source Comments The information contained in this document represents components of the legal health record. It is not the complete legal health record.[facility]
--- NOTE | 2024-11-25 08:16 | AM.OFFVISMDC ---
Intake Vital Signs 11/25/24 08:18 Height 5 ft 11 in Weight 191 lb BMI 26.6 BP 112/68 Blood Pressure Location Rt brachial Position Sitting Pulse 95 Pulse Source Pulse Oximeter Temp 97.3 F Temp Source Temporal Artery Scan Pulse Oximetry (%) 98 Oxygen Delivery Method Room Air Intake Visit Reasons: SANTOS G0439 Intake Note: Patient is here for an Annual Wellness Visit. Wharf Attendant Required: No Vision Teacher: Vision Teacher offered & declined Accompanied by: Self / Same As Patient Allergies oxycodone (OXYCODONE) Allergy (Intermediate, Verified 11/25/24 08:18) ITCHING Medication List - Last Reconciled 11/25/24 by Becca Givens MD atorvastatin 40 mg PO BEDTIME blood sugar diagnostic (FreeStyle Lite Strips) As directed check the BS QD blood-glucose meter (FreeStyle Lite Meter kit) As directed cholecalciferol (vitamin D3) 50 mcg PO DAILY citalopram 20 mg PO DAILY cyanocobalamin (vitamin B-12) 1,000 mcg IM Q4W 90 days [Diabetic shoes As directed] diclofenac sodium 1% (Voltaren Arthritis Pain) 2 grams topical QID diclofenac sodium 75 mg PO BID esomeprazole magnesium (Nexium) 40 mg PO DAILY flash glucose scanning reader (The Easou TechnologyStyle Mj 14 Day Deepwater) As directed flash glucose sensor (FreeStyle Mj 14 Day Sensor kit) As directed furosemide 20 mg PO once aweek saturday; 90 days lancets (The E[employer]ou TechnologyStyle Lancets) As directed check BS QD levothyroxine 125 mcg PO DAILY 90 days lidocaine 5% 1 patch topical DAILY PRN lisinopril 40 mg PO DAILY 90 days magnesium oxide 400 mg PO BEDTIME metformin 1,000 mg PO BID 90 days metoprolol succinate ER 50 mg PO DAILY 90 days multivitamin 1 tab PO DAILY pioglitazone 30 mg PO DAILY syringe with needle (BD Luer-Myron Syringe) As directed tirzepatide 7.5 mg (0.5 mL) subcut QWEEK triamcinolone acetonide 0.5% 1 appl topical BID HPI HPI Comments History of Present Illness Details The patient is a 74-year-old male presenting with a wellness check-up focusing on managing chronic conditions and preventative care. The patient reports a history of rotator cuff tears, having undergone surgical repair on both shoulders approximately eight years ago. Recently, he experienced a potential re-injury while performing physical activity, suspecting another tear due to similar symptoms experienced in the past. The patient also reports neuropathy, which has been progressively worsening, contributing to balance issues. He experiences difficulty maintaining balance. Romberg test in clinic was negative. Sleep disturbances are noted, with the patient waking up at midnight regularly, often due to the need to use the restroom, followed by difficulty returning to sleep. He manages this with [id number] sleep aids and does not feel the need for further specialist intervention at this time. Memory concerns have been expressed, with the patient noting difficulties with short-term recall and performing cognitive tasks such as counting backwards by sevens. A referral to a neurocognitive specialist was discussed to further evaluate these concerns. The patient maintains an active lifestyle, abstains from alcohol, and engages in regular exercise. He has no issues with appetite or feeding and reports good control over urinary and bowel functions. [place] of care was reviewed. MOLST was handed to patient. PPP handed to patient. [facility] Medical History Dental root implant present Family history of cerebral aneurysm HTN (hypertension) History of alcohol abuse Basal cell carcinoma (BCC) History of depression On beta zoe at home Hx of sigmoidoscopy Shortness of breath Colon cancer screening Vitamin B1 deficiency Hypercholesterolemia Type 2 diabetes mellitus with hyperglycemia Chronic anemia Hypothyroidism Type 2 diabetes mellitus with diabetic polyneuropathy Essential hypertension Surgical History History of esophagogastroduodenoscopy (EGD) Status post right foot surgery Hx of colonoscopy Lipoma of right axilla Hx of tonsillectomy Hx of Achilles tendon repair Hx of carpal tunnel repair History of total right knee replacement H/O repair of rotator cuff Family History Father Throat cancer Diabetes Bladder cancer Lung cancer Mother No problems noted. 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 Current occupational exposures/hazards: No Cognitive needs: No Hearing needs: No Vision needs: Yes Questionnaire Medicare Wellness Checkup [age] What gender do you identify with?: male During the past 4 weeks, how much have you been bothered by emotional problems such as feeling anxious, depressed, irritable, sad or downhearted, and blue?: not at all During the past 4 weeks, has your physical & emotional health limited your social activities with family, friends, neighbors, or groups?: not at all During the past 4 weeks, how much bodily pain have you generally had?: moderate pain During the past 4 weeks, was someone available to help you if you needed & wanted help?: yes, as much as I wanted During the past 4 weeks, what was the hardest physical activity you could do for at least 2 minutes?: heavy Can you get to places out of walking distance without help? (For eg., can you travel alone on buses, taxis or drive your car?): Yes Can you go shopping for groceries or clothes without someone's help?: Yes Can you prepare your own meals?: Yes Can you do your housework without help?: Yes Because of any health problems, do you need the help of another person with your personal care needs such as eating, bathing, dressing or getting around the house?: No Can you handle your own money without help?: Yes During the past 4 weeks, how would you rate your health in general?: very good During the past 4 weeks how have things been going for you?: very well; could hardly better Are you having difficulties driving your car?: no Do you always fasten your seat belt when you are in a car?: yes, usually During past 4 weeks, have you been bothered by the following: never: Teeth or denture problems?, seldom: Problems using the telephone? and Tiredness or fatigue?, sometimes: Trouble eating well? and often: Falling or dizzy when standing up and Sexual problems? Have you fallen 2 or more times in the past year?: Yes Are you afraid of falling?: Yes Are you a smoker?: no During the past 4 weeks, how many drinks of wine, beer, or other alcoholic beverages did you have?: no alcohol at all Do you exercise for about 20 minutes 3 or more times a week?: yes, all the time Have you been given information to help with the following?: no: Hazards in your house that might hurt you? and no: Keeping track of your medications? How often do you have trouble taking medicines the way you have been told to take them?: sometimes I take medicine as prescribed How confident are you that you can control & manage most of your health problems?: very confident What is your race?: White Mini Mental State Exam (MMSE) Orientation What is the (year) (season) (date) (day) (month)?: year, season, date, day and month Where are we (state) (county) (town or city) (hospital) (floor)?: state, county, town or city, hospital/clinic and floor Registration Name of 3 unrelated objects clearly and slowly, then ask patient to repeat all 3 of them. (1st repeat determines score. Make sure they can repeat all three): object 3 Attention & Calculation (CHOOSE ONE) Ask pt to begin with 100 & count backward by 7. Stop after 5 repeats. If pt cannot ask them to spell the word WORLD backward.: 65 Spell WORLD backwards (DLROW): 5 letters Recall Ask patient to repeat the 3 items from question #3.: object 1 Language Show patient a wristwatch & ask what it is. Repeat for pencil.: watch and pencil Ask the patient to repeat the phrase 'No ifs, ands, or buts' after you.: correct Ask the patient to 'take a piece of paper with their right hand' 'fold paper in half' 'place paper on floor': take paper in right hand, fold paper in half and place paper on floor Print the sentence 'CLOSE YOUR EYES' on a piece. If patient actually closes eyes then score.: followed written direction Give patient a blank piece of paper & ask to write a sentence. Score if it contains a noun & verb.: sentence contains subject and verb Ask patient to copy figure of intersecting pentagons exactly. Score if all 10 angles & 2 intersects are included.: all 10 angles present & 2 are intersected Score Score: 27 Activity of Daily Living Bathing - sponge bath, tub bath or shower: receives no assistance (gets in/out by self, if usual bathing means Dressing - getting clothes from closets & drawers, including inner/outer garments & fasteners.: gets clothes & gets completely dressed without help Toileting - going to the 'toilet room' for urine/bowel elimination & cleaning self/arranging clothes: goes to toilet room, cleans self, arranges clothes without help Transfer: moves in & out of bed and chair without help (may use support object) Continence: controls urination/bowel movements completely by self Feeding: feeds self without help Total Score: 0 Information obtained from: patient Using telephone: independent Traveling: independent Shopping: independent Preparing meals: independent Housework: independent Taking medicine: independent Managing money: independent PHQ-9 Over the last 2 weeks, how often have you been bothered by any of the following problems? 1. Little interest or pleasure in doing things: not at all 2. Feeling down, depressed, or hopeless: not at all 3. Trouble falling or staying asleep, or sleeping too much: more than half the days 4. Feeling tired or having little energy: several days 5. Poor appetite or overeating: not at all 6. Feeling bad about yourself - or that you are a failure or have let yourself or your family down: not at all 7. Trouble concentrating on things, such as reading the newspaper or watching television: not at all 8. Moving or speaking so slowly that other people could have noticed. Or the opposite - being so fidgety or restless that you have been moving around a lot more than usual: not at all 9. Thoughts that you would be better off or of hurting yourself in some way: not at all Total score: 3 Depression Screening Interpretation: Negative Depression Screening Done: Yes Source: Developed by Drs. Ottoniel Solis, Michelle Evangelista, Rubén Fritz and colleagues, with an educational nina from [employer]. Thrive Questionnaire Date Thrive assessed: 03/27/24 AUDIT C Alcohol Use Questionnaire (AUDIT-C) 3. How often do you have six or more drinks on one occasion?: Never Total Score: 0 JOSE JUAN-7 AMB Questionnaire JOSE JUAN-7 Date JOSE JUAN - 7 assessed: 03/27/24 Source: Developed by Drs. Ottoniel Solis, Michelle Evangelista, Rubén Fritz and colleagues, with an educational nina from [employer]. Review of Systems Const Details: Positives besides what was mentioned in HPI are in BOLD Constitutional: No Weight Change, No Fever, No Chills, No Night Sweats, No Fatigue, No Malaise ENT/Mouth: No Hearing Changes, No Ear Pain, No Nasal Congestion, No Sinus Pain, No Hoarseness, No sore throat, No Rhinorrhea, No Swallowing Difficulty. Eyes: No Eye Pain, No Swelling, No Redness, No Foreign Body, No Discharge, No Vision Changes Cardiovascular: No Chest Pain, No SOB, No PND, No Dyspnea on Exertion, No Orthopnea, No Claudication, No Edema, No Palpitations Respiratory: No Cough, No Sputum, No Wheezing, No Smoke Exposure, No Dyspnea Gastrointestinal: No Nausea, No Vomiting, No Diarrhea, No Constipation, No Pain, No Heartburn, No Anorexia, No Dysphagia, No Hematochezia, No Melena, No Flatulence, No Jaundice Genitourinary: No Dysmenorrhea, No DUB, No Dyspareunia, No Dysuria, No Urinary Frequency, No Hematuria, No Urinary Incontinence, No Urgency, No Flank Pain, No Urinary Flow Changes, No Hesitancy Musculoskeletal: No Arthralgias, No Myalgias, No Joint Swelling, No Joint Stiffness, No Back Pain, No Neck Pain, No Injury History Skin: No Skin Lesions, No Pruritis, No Hair Changes, No Breast/Skin Changes, No Nipple Discharge Neuro: No Weakness, No Numbness, No Paresthesias, No Loss of Consciousness, No Syncope, No Dizziness, No Headache, No Coordination Changes, No Recent Falls Psych: No Anxiety/Panic, No Depression, No Insomnia, No Personality Changes, No Delusions, No Rumination, No SI/HI/AH/VH, No Social Issues, No Memory Changes, No Violence/Abuse Hx., No Eating Concerns Heme/Lymph: No Bruising, No Bleeding, No Transfusions History, No Lymphadenopathy Endocrine: No Polyuria, No Polydipsia, No Temperature Intolerance Physical Exam Exam Exam: Pertinent findings are in BOLD GENERAL APPEARANCE NAD, activity normal for age, well developed/ well nourished, no cyanosis, pallor, or diaphoresis. EYES lids/conjunctiva normal. EARS/NOSE/THROAT Mucous membranes moist, nares normal, lips/teeth normal uvula midline without oral pharyngeal erythema, exudate or swelling TMs normal bilaterally. No lymphangitis/lymphedema. HEAD/NECK normocephalic atraumatic, no facial trauma, neck is supple. RESPIRATORY respiratory effort normal, speaks in full sentences, no tripod position, no accessory muscle use. Lungs clear to auscultation without rhonchi, wheezes, rales CARDIAC Regular rate and rhythm, no edema. ABDOMINAL Soft, ND/NT. No evidence of fluid wave. No pulsatile masses on exam, rebound tenderness, Breen sign or pain over Mcburney's point. MUSCLES/EXTREMITIES No abnormal range of motion, no swelling. SKIN Warm, pink and dry. No rashes, dermatoses, petechiae or lesions. NEUROLOGICAL Speech is clear and appropriate. Normal level of consciousness. Gait and coordination are normal. 5/5 strength in all extremities. PSYCH Normal mood and affect. Judgement/competence is appropriate Romberg negative. Whisper test with deminished hearing bilaterally. Vital Signs: Last Vital Signs Temp 97.3 F 11/25/24 08:18 Pulse 95 11/25/24 08:18 BP 112/68 11/25/24 08:18 Pulse Ox 98 11/25/24 08:18 Oxygen Delivery Method Room Air 11/25/24 08:18 BMI result Body Mass Index 26.6 Results AMB Hemoglobin A1c AMB Hemoglobin A1c 6.8 % Last Edit by QIANA Thomas on 11/25/24 08:31 Results Reviewed Results Reviewed: Laboratory Last Values Hgb A1c (Clinic) 6.8 % (4.0-6.0) H 11/25/24 08:16 Assessment & Plan Assessment & Plan (1) Type 2 diabetes mellitus with diabetic polyneuropathy: Code(s): E11.42 - Type 2 diabetes mellitus with diabetic polyneuropathy Qualifiers: Diabetes mellitus longterm insulin use: without longterm use Qualified Code(s): E11.42 - Type 2 diabetes mellitus with diabetic polyneuropathy Plan: Continue Metformin, Pioglitazone, Tirzepatide. Amb A1c in clinic today is 6.8%. Patient has poditary appointment. Patient has eye clinic appointment. Micro alb/ Cr ordered. CMP ordered. (2) Hypothyroidism: Code(s): E03.9 - Hypothyroidism, unspecified Qualifiers: Hypothyroidism type: acquired Qualified Code(s): E03.9 - Hypothyroidism, unspecified Plan: Continue current regimen. TSH repeat ordered. (3) Healthcare maintenance: Code(s): Z00.00 - Encounter for general adult medical examination without abnormal findings Plan: CBC, CMP, Lipid panel, A1C, TSH w T4. Ordered today. Advised on getting Shingles vaccine. Patient reports completing COVID and pneumococcal vaccines in the past. Patient will get the flu vaccine from retail pharmacy. Colonoscopy: LAst done 2024. Due in 2028. AAA: Not indicated. Ct lung: Not indicated. PSA: Ordered today. HBV: Ordered today. HCV: Ordered today. HAV IGG: ordered today. MMR anticodies ordered today to confirm immunization. Vit D oredered. (4) Gastroesophageal reflux disease: Code(s): K21.9 - Gastro-esophageal reflux disease without esophagitis Qualifiers: Esophagitis presence: esophagitis presence not specified Qualified Code(s): K21.9 - Gastro-esophageal reflux disease without esophagitis Plan: Continue current treatment. Follows with GI. (5) Memory change: Code(s): R41.3 - Other amnesia Plan: Neuro psychiatry referral placed. B12, TSH, Folate ordered. (6) Generalized anxiety disorder: Comment: Declined referral for counseling Code(s): F41.1 - Generalized anxiety disorder Plan: Continue Citalopram. (7) Rotator cuff (capsule) sprain: Code(s): S43.429A - Sprain of unspecified rotator cuff capsule, initial encounter Plan: Normal active and passive arm extention. Patient will follow up with [facility]. (8) Neuropathy: Code(s): G62.9 - Polyneuropathy, unspecified Plan: Patient is already established with podiatry. Romberg test neagtive in clinic today. (9) Hearing loss: Code(s): H91.90 - Unspecified hearing loss, unspecified ear Plan: Age related. We will CTM. Plan During the visit, we discussed the patient's concerns about a potential rotator cuff tear and the possibility of consulting an soil specialist for further evaluation. We also addressed the patient's neuropathy and balance issues, performing a Romberg test to assess stability. Sleep disturbances were reviewed, with the patient managing symptoms using [id number] aids. Memory concerns were noted, and a referral to a neurocognitive specialist was considered. Preventative care, including vaccinations and screenings, was emphasized, and the patient was encouraged to maintain a healthy lifestyle. Orders: Orders AMB Hemoglobin A1c Today E11.42 - Type 2 diabetes mellitus with diabetic polyneuropathy, E11.65 - Type 2 diabetes mellitus with hyperglycemia Complete Blood Count no Diff Today Z00.00 - Encounter for general adult medical examination without abnormal findings Comprehensive Met. Panel Today Z00.00 - Encounter for general adult medical examination without abnormal findings Hepatitis B Surface Antibody Today Z00.00 - Encounter for general adult medical examination without abnormal findings Hepatitis C Antibody Reflex Today Z00.00 - Encounter for general adult medical examination without abnormal findings Rubeola IgG (Measles) Today Z00.00 - Encounter for general adult medical examination without abnormal findings Mumps Virus IgG Antibody Today Z00.00 - Encounter for general adult medical examination without abnormal findings Vitamin B12 Today Z00.00 - Encounter for general adult medical examination without abnormal findings Vitamin D 1,25 dihydroxy Today Z00.00 - Encounter for general adult medical examination without abnormal findings Prostate Specific Antigen Today Z00.00 - Encounter for general adult medical examination without abnormal findings TSH reflex Free T4 Today Z00.00 - Encounter for general adult medical examination without abnormal findings Rubella IgG Antibody Today Z00.00 - Encounter for general adult medical examination without abnormal findings Folate Today Z00.00 - Encounter for general adult medical examination without abnormal findings Microalbumin, Random (w Creat) Today Z00.00 - Encounter for general adult medical examination without abnormal findings Referrals Neuropsychiatry Referral R41.3 - Other amnesia, Z00.00 - Encounter for general adult medical examination without abnormal findings Quality Reporting (2019) Adult ([facility] 138/2/) Smoking risk assessment performed?: Yes Patient Tobacco Use Status: Former Tobacco user Depression screening performed: Yes Recommended changes: lifestyle Systolic BP not done?: No Diastolic BP not done?: No BMI screening not done: No BMI High - Follow Up: Yes Above normal medication not ordered Sexual Activity Screening ([facility] 153) Sexually active?: No Immunizations (CMS 147, 117) Annual Influenza Vaccine: No Fall Risk Screening (CMS 139) Fall risk assessment: No Falls in past year Dementia Assessment ([facility] 149) Cognitive assessment recorded: Yes Assessment of cognition with standardized tool: Yes Depression/Bipolar (159/160/161/177) PHQ-9: Total score: 3 Suicide risk assessment performed: Yes Psychotherapy: No Ophthalmol:Cataracts Visual Acuity (133) Visual acuity exam performed: No Coding Level of Care Code Medicare Subsequent (G0439) Diagnoses Type 2 diabetes mellitus with diabetic polyneuropathy, without long-term current use of insulin E11.42 Diabetes 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 insulin use: without longterm use Acquired hypothyroidism E03.9 Hypothyroidism type: acquired Healthcare maintenance Z00.00 Gastroesophageal reflux disease, unspecified whether esophagitis present K21.9 Esophagitis presence: esophagitis presence not specified Memory change R41.3 Generalized anxiety disorder F41.1 Rotator cuff (capsule) sprain S43.429A Neuropathy G62.9 Hearing loss H91.90 CPT Codes Advance Care Planning - Time spent: 1-15 minutes, not on file ([id number]) Time Spent (min) 60 Advance Care Planning Advance Care Planning discussion: Exists, not on file Date of discussion: 11/25/24 Who was present: Me and patient. I handed the patient MARVIN paperwork. HE said he will bring it back. Forms completed: MARVIN (Handed to patient. ) Time spent: 1-15 minutes, not on file Actual minutes spent: 5 Did not discuss due to Cultural/Spiritual beliefs: Yes
[2024-11-25 08:18] VITALS: BP 112/68; PULSE 95; TEMP 36.3; O2SAT 98; BMI 26.6
== END 2024-11-25 09:38 | disposition home or self-care (01) ==
LOC: HO.HMCH 07:55
PROVIDERS: PCP Internal Medicine; Visit Provider Internal Medicine
DX: Z00.00 Encounter for general adult medical examination without abnormal findings (principal); E11.42 Type 2 diabetes mellitus with diabetic polyneuropathy; E11.65 Type 2 diabetes mellitus with hyperglycemia; E03.9 Hypothyroidism, unspecified; K21.9 Gastro-esophageal reflux disease without esophagitis; R41.3 Other amnesia; F41.1 Generalized anxiety disorder; S43.429A Sprain of unspecified rotator cuff capsule, initial encounter; G62.9 Polyneuropathy, unspecified

== ENCOUNTER → 2024-11-25 07:55 | Outpatient (BNVA) | payer MEDICARE, OTHER, SELFPAY | PROVIDERS: PCP Internal Medicine; Visit Provider Internal Medicine | DX: Z00.00 Encounter for general adult medical examination without abnormal findings (principal); E11.42 Type 2 diabetes mellitus with diabetic polyneuropathy; E03.9 Hypothyroidism, unspecified; K21.9 Gastro-esophageal reflux disease without esophagitis; R41.3 Other amnesia; F41.1 Generalized anxiety disorder; G62.9 Polyneuropathy, unspecified | CPT/HCPCS: 83036; 96127 ==

== ENCOUNTER 2025-01-18 06:07 | Outpatient (REF) | payer MEDICARE, OTHER, SELFPAY ==
--- OUTSIDE RECORDS SUMMARY | 2024-11-23 04:00 | XMS_ITS ---
Author Organization [facility] Address [address] [place] [address] Care Team Providers Care Hot Top Liner Helper Name Role Phone Dea Simpson Primary Care Provider Babrara Crawford [phone] Encounters Encounter Location Date Provider Diagnosis [facility] [address] [place] [address] 11/23/2024 Barbara Maldonado Plan Of Treatment No Information Progress Notes * Maximus CARTER HDOB: [birth year] (74 yo M)Acc No.[id number]:11/23/2024 Progress Note Patient: Maximus SKY Provider: Kendal Maldonado DPM :1950 A ge:74 Y S ex:Male Date:11/23/2024 Address:[address] [place] [address] [facility] [facility] Pcp:Dea Simpson Subjective: * Chief Complaints: * [...] 11/23/2024 Generated for Mariama ames/Zaira/eTransmitting on: 1 03/20/2024 06:10 AM EST
--- OUTSIDE RECORDS SUMMARY | 2025-01-18 06:10 | XMS_ITS | Patient Health Record ---
[facility] Address [address] [facility] [place] [address] Care Team Providers Care Ball Mill Operator Name Role Phone Dea Simpson Primary Care Provider Barbara Crawford Unavailable [phone] Allergies Allergen (clinical drug ingredient) Drug/Non Drug [...] Problem Acquired hammer toe of right foot (9332107062236909 ) Other hammer toe(s) (acquired), right foot (M20.41) Active confirmed Problem Acquired hammer toe of left foot (8287746783266490 ) Other hammer toe(s) (acquired), left foot (M20.42) Active confirmed Problem Polyneuropathy due to type 2 diabetes mellitus (333938009) Type 2 diabetes mellitus with diabetic polyneuropathy (E11.42) Active confirmed Vital Signs Blood pressure diastolic 65 mm Hg 07/20/2024 Height 6dy23nw in 07/20/2024 Blood pressure systolic 128 mm Hg 07/20/2024 Weight 180 lbs 07/20/2024 BMI 25.1 kg/m2 07/20/2024 Procedures Procedure Date Ordered Date Performed Result Body Sit e 80383-XWUZWNT NAIL, 6 OR MORE 03/16/2024 N/A 45251-SFWD SKIN LESIONS, 2 TO 4 03/16/2024 N/A 88727-GGEHTNZ NAIL, 6 OR MORE 07/20/2024 N/A 37843-RCLT SKIN LESIONS, 2 TO 4 07/20/2024 N/A Encounters Encounter Location Date Provider Diagnosis [facility] [address] 03/16/2024 Barbara Maldonado Type 2 diabetes mellitus with diabetic polyneuropathy E11.42 and Tinea unguium B35.[address] [address] 07/20/2024 Barbara Maldonado Other hammer toe(s) (acquired), [...] 03/16/2024 Tinea unguium (ICD-10 - B35.1) 07/20/2024 Other hammer toe(s) (acquired), right foot (ICD-10 - M20.41) Patient Educated with: DIABETIC FOOT CARE INSTRUCTIONS. pdf (DIABETIC FOOT CARE INSTRUCTIONS. pdf) 07/20/2024 Other hammer toe(s) (acquired), left foot (ICD-10 - M20.42) 07/20/2024 Type 2 diabetes mellitus with diabetic polyneuropathy (ICD-10 - E11.42) 07/20/2024 Tinea unguium (ICD-10 - B35.1) Plan Of Treatment Pending Test Test Name Order Date X ray : Foot, left 3V 06/15/2020 X ray : Foot, right 3V 06/15/2020 70956-HHWTLUY NAIL, 6 OR MORE 07/20/2024 33687-YSRDJVF NAIL, 6 OR MORE 03/16/2024 83825-MCLT SKIN LESIONS, 2 TO 4 03/16/19 25 19591-PWJD SKIN LESIONS, 2 TO 4 03/16/19 21 39575-TNZF SKIN LESIONS, 2 TO 4 06/16/19 21 74396-PUYA SKIN LESIONS, 2 TO 4 09/29/19 21 21645-LXEL SKIN LESIONS, 2 TO 4 01/05/20 21 86296-RMVU SKIN LESIONS, 2 TO 4 03/30/19 22 05257-SYEC SKIN LESIONS, 2 TO 4 07/21/19 04553- Removal of Foreign Body, Subcut 0 11/19/2022 Insurance Providers Payer Name Payer Address Payer Phone Subscriber Number Group Number Insured Name Patient Relationship to Insured Coverage Start Date Coverage End Date Medicare National Govt Sv[employer] [address] [facility] [place] [address] [id number] Maximus Vu Self - patient is the insured [employer] [address] [place] [address] [phone] [id number] Maximus Vu Self - patient is the insured Medical (General) History Medical History History ICD Code Back,Hip,and Knee pain Depression High blood pressure thyroid Joint implants/screws type II diabetes covid-19 Anemia Hypothyroidism Hyperlipidemia Pain Surgical History Surgery Date(Month/Year) achilles tendon repair knee replacement shoulder surgery carpal tunnel surgery Flex ten R 03/30/21
--- OUTSIDE RECORDS SUMMARY | 2025-01-18 06:11 | XMS_ITS | Encounter Summary ---
Author Organization [facility] Address [address] [place] [address] Phone Care Team Providers Care Lift Truck Mechanic Name Role Phone Dea Simpson MD Primary Care Provider [phone] Encounter Details Date Type Department Care Team (Late st Contact Info) Description 12/20/2021 Procedure Pass [facility], [address] [place] [address] Social History Tobacco Use Types Packs/Day Years [...] Pass [facility], [address] [place] [address] 12/24/2025 7:15 AM EDT Appointment [facility], [address] [place] [address] Lit Doan PA-C [address] [place] [id number] [email or web address] documented as of this encounter Visit Diagnoses Not on filedocumented in this encounter Care Teams Lift Truck Mechanic Relationship Specialty Start Date End Date Dea Simpson MD [address] [place] [address] Drive [address] [place] [phone] PCP - General Internal Medicine 12/11/19 documented as of this encounter Additional Source Comments The information contained in this document represents components of the legal health record. It is not the complete legal health record.[facility]
--- OUTSIDE RECORDS SUMMARY | 2025-01-18 06:11 | XMS_ITS | Encounter Summary ---
Author Organization [facility] Address [address] [address] Phone Care Team Providers Care Non Profit Job Titles Name Role Phone Mohsen Mcintosh DO Primary Care Provider [phone] Dea Simpson MD Primary Care Provider [phone] Encounter Details Date Type Department Care Team (Late st Contact Info) Description 10/21/2017 Procedure Pass [facility] [address] [place] [address] Social History Tobacco Use Types Packs/Day Years [...] st Contact Info) Description 12/25/2023 Procedure Pass [facility] MR [facility], [address] [place] [address] 12/24/2025 7:15 AM EDT Appointment [facility], [address] [place] [address] Lit Doan PA-C [address] [place] [address] [email or web address] documented as of this encounter Visit Diagnoses Not on filedocumented in this encounter Care Teams Non Profit Job Titles Relationship Specialty Start Date End Date Mohsen Mcintosh DO [address] [place] [address] PCP - General Internal Medicine 08/12/15 12/10/19 Dea Simpson MD [address] [place] [phone] PCP - General Internal Medicine 12/11/19 documented as of this encounter Additional Source Comments The information contained in this document represents components of the legal health record. It is not the complete legal health record.[facility]
--- OUTSIDE RECORDS SUMMARY | 2025-01-18 06:11 | XMS_ITS | Encounter Summary ---
Author Organization [facility] Address [address] [place] [address] Phone Care Team Providers Care Member Services Coordinator Name Role Phone Mohsen Mcintosh DO Primary Care Provider [phone] Dea Simpson MD Primary Care Provider [phone] Encounter Details Date Type Department Care Team (Late st Contact Info) Description 09/18/2016 Procedure Pass [facility] MR Imaging, [address] [place] [address] Social History Tobacco Use Types Packs/Day Years [...] Contact Info) Description 12/25/2023 Procedure Pass [facility] MR Imaging, [address] [place] [address] 12/24/2025 7:15 AM EDT Appointment [facility] MR Imaging, [address] [place] [address] Lit Doan PA-C [address] [place] [address] [email or web address] documented as of this encounter Visit Diagnoses Not on filedocumented in this encounter Care Teams Member Services Coordinator Relationship Specialty Start Date End Date Snow, Mohsen FrancoisDO [address] [place] [address] PCP - General Internal Medicine 08/12/15 12/10/19 Dea Simpson MD [address] [place] [phone] PCP - General Internal Medicine 12/11/19 documented as of this encounter Additional Source Comments The information contained in this document represents components of the legal health record. It is not the complete legal health record.[facility]
--- OUTSIDE RECORDS SUMMARY | 2025-01-18 06:11 | XMS_ITS | Patient Health Record ---
Author Organization [facility] Address [address] [place] [phone] Care Team Providers Care Purchasing/Receiving Name Role Phone Cy Pereira Jr [phone] Reason For Referral No Information Plan Of Treatment No Information
--- OUTSIDE RECORDS SUMMARY | 2025-01-18 06:11 | XMS_ITS | Encounter Summary ---
Author Organization [facility] Address [address] [place] [address] Phone Care Team Providers Care Utility Tech Name Role Phone Dea Simpson MD Primary Care Provider [phone] Encounter Details Date Type Department Care Team (Late st Contact Info) Description 11/28/2021 Procedure Pass [facility] [employer] [employer] [place] [address] [place] [address] Social History Tobacco Use Types Packs/Day Years [...] st Contact Info) Description 12/25/2023 Procedure Pass [facility] MR Imaging, [address] [place] [address] 12/24/2025 7:15 AM EDT Appointment [facility] MR Imaging, [address] [place] [address] Lit Doan PA-C [address] [place] [address] [email or web address] documented as of this encounter Visit Diagnoses Not on filedocumented in this encounter Care Teams Utility Tech Relationship Specialty Start Date End Date Dea Simpson MD [address] [place] [address] PCP - General Internal Medicine 12/11/19 documented as of this encounter Additional Source Comments The information contained in this document represents components of the legal health record. It is not the complete legal health record.[facility]
--- OUTSIDE RECORDS SUMMARY | 2025-01-18 06:11 | XMS_ITS | Encounter Summary ---
Author Organization [facility] Address [address] [place] [address] Phone Care Team Providers Care Social Science Research Assistant Name Role Phone Mohsen Mcintosh DO Primary Care Provider [phone] Dea Simpson MD Primary Care Provider [phone] Encounter Details Date Type Department Care Team (Late st Contact Info) Description 10/29/2019 Procedure Pass [facility] MR Imaging, [address] [place] [address] Social History Tobacco Use Types Packs/Day Years [...] st Contact Info) Description 12/25/2023 Procedure Pass [facility] MR Imaging, [address] [place] [address] 12/24/2025 7:15 AM EDT Appointment [facility] MR Imaging, [address] [place] [address] Lit Doan PA-C [address] [place] [phone] [email or web address] documented as of this encounter Visit Diagnoses Not on filedocumented in this encounter Care Teams Social Science Research Assistant Relationship Specialty Start Date End Date Mohsen Mcintosh DO [address] [place] [address] PCP - General Internal Medicine 08/12/15 12/10/19 Dea Simpson MD [address] [place] [phone] PCP - General Internal Medicine 12/11/19 documented as of this encounter Additional Source Comments The information contained in this document represents components of the legal health record. It is not the complete legal health record.[facility]
--- OUTSIDE RECORDS SUMMARY | 2025-01-18 06:11 | XMS_ITS | Clinical Summary ---
Author Organization [facility] Address [address] [employer] [address] [address] Phone Care Team Providers Care Organic Preparation Analyst Name Role Phone Dea Simpson MD Primary Care Provider [phone] Allergies Active Allergy Reactions Criticality Noted Date [...] st Contact Info) Description 12/25/2023 Procedure Pass [facility] [place] [address] 12/24/2025 7:15 AM EDT Appointment [facility] [place] [address] Lit Doan PA-C [address] [place] [phone] [email or web address] Health Maintenance Due Date Last Done Comments LIPID PANEL 1948 POTASSIUM LEVEL 1948 TSH LEVEL 1948 DEPRESSION SCREENING 1960 SMOKING Hx and SMOKELESS TOBACCO SCREENING 1961 HEPATITIS C SCREENING 1966 ZOSTER VACCINES (2 of 2) 08/21/2017 06/26/2017 CREATININE LEVEL 12/10/2020 12/11/2019, , 10/19/2016, Additional history exists INFLUENZA VACCINE (#1) 2024 , 12/19/2022, 12/25/2021, Additional history exists COVID-19 VACCINE ( season) 2024 12/19/2022, 02/26/2022, 06/08/2021, Additional history exists Adult Td,Tdap Booster 05/20/2031 [...] CRE POC 0.8 0.5 - 1.2 mg/dL [facility] SUITE EGFR POC 90 >59 mL/min/1.7 3m2 [facility] CT [facility] MRI SUITE Comment:Estimated glomerular filtration rate calculated using the CKD-EPI equation. 12/11/2019 9:17 AM EDT 12/11/2019 9:19 AM EDT us Abner Hernandez MD POINT OF CARE TEST ORDERABLES Final Result [facility] MRI [address] [place] [address] from Last 3 Months or Most Recently Relevant to Health Maintenance Insurance MEDICARE PART A & B [facility] MEDICARE SUPPLEMENT MEDICARE PART A & B Member Subscriber Plan / Payer (Ef fective 2013-Present) Name:Maximus Vu Member ID:[id number] Relation to Subscriber:Self Name:Maximus Vu Subscriber ID:[id number] Payer ID:[id number] Group ID:Not on file Type:Medicare Address: [employer] [address] [employer] MEDICARE SUPPLEMENT MEDICARE PART A & B [employer] MEDICARE SUPPLEMENT MEDICARE PART A & B [employer] MEDICARE SUPPLEMENT MEDICARE PART A & B [employer] MEDICARE SUPPLEMENT MEDICARE PART A & B [employer] [facility] EXTENSION MEDICARE SUPPLEMENT MEDICARE PART A & B Member Subscriber Plan / Payer ( fective 2013-Present) Name:Maximus Vu Member ID:[id number] Relation to Subscriber:Self Name:Maximus Vu Subscriber ID:[id number] Payer ID:[id number] Group ID:Not on file Type:Medicare Address: [employer] [address] [place] [id number] [place] [address] MEDICARE SUPPLEMENT MEDICARE PART A & B MEDICARE SUPPLEMENT MEDICARE PART A & B [facility] [employer] MEDICARE SUPPLEMENT Care Teams Organic Preparation Analyst Relationship Specialty Start Date End Date Dea Simpson MD [address] [place] [phone] PCP - General Internal Medicine 12/11/19 Additional Source Comments The information contained in this document represents components of the legal health record. It is not the complete legal health record.[facility]
[2025-01-18 08:07] LABS: HBS Num1 0.00 mIU/mL (0-7.99); ~HepC Num1 0.13 S/CO (0.00-0.79); ~Hepatitis B Surface Antibody NONREACTIVE (Nonreactive); ~Hepatitis C Antibody Nonreactive (Nonreactive)
[2025-01-18 08:23] LABS: Folate 14.3 ng/mL (> or = 4.0); Prostate Specific Antigen 0.53 ng/mL (<0.05-4.0); Vitamin B12 829 pg/mL (200-900)
[2025-01-18 08:45] LABS: Free T4 (Free Thyroxine) 1.41 ng/dL (0.71-1.85)
[2025-01-19 09:23] LABS: Rubeola IgG (Measles) >300.00 AU/mL
[2025-01-22 15:33] LABS: VITAMIN D (1,25 OH) D3 30 pg/mL; Vit D (1,25-Dihydroxy) Total 30 pg/mL (18-72); Vitamin D (1,25 OH) D2 <8 pg/mL
== END 2025-01-18 06:08 | disposition home or self-care (01) ==
LOC: HO.LAB 06:07
PROVIDERS: PCP Internal Medicine; Visit Provider Internal Medicine
DX: Z00.00 Encounter for general adult medical examination without abnormal findings (principal); Z12.5 Encounter for screening for malignant neoplasm of prostate; Z13.21 Encounter for screening for nutritional disorder; Z13.29 Encounter for screening for other suspected endocrine disorder
CPT/HCPCS: 36415; 82043; 82570; 82607; 82652; 82746; 84153; 84439; 84443; 86706; 86735; 86762; 86765; 86803

== ENCOUNTER 2025-01-21 14:04 | Outpatient (AMB) | payer MEDICARE, OTHER, SELFPAY ==
--- OUTSIDE RECORDS SUMMARY | 2024-11-23 04:00 | XMS_ITS ---
Author Organization [facility] Address [address] [place] [address] Care Team Providers Care Treating Plant Operator Name Role Phone Dea Simpson Primary Care Provider Barbara Crawford [phone] Encounters Encounter Location Date Provider Diagnosis [facility] [address] [place] [address] 11/23/2024 Barbara Maldonado Plan Of Treatment No Information Progress Notes * Maximus CARTER HDOB: [birth year] (74 yo M)Acc No.[id number]:11/23/2024 Progress Note Patient: Maximus SKY Provider: Kendal Maldonado DPM :1950 A ge:74 Y S ex:Male Date:11/23/2024 Address:[address] [place] [address] [facility] Pcp:Dea Simpson Subjective: * Chief Complaints: * * Medical History: Objective: * Vitals: Assessment: Plan: * Treatment: * Images: * The named appointment provid er may or may not be the originator of this progress note, and it is not deemed complete until electronically signed by the appointment provider. Sign off status: Pending * Provider: Kendal Maldonado DPM Date: 0 11/23/2024 Generated for Mariama ames/Zaira/eTransmitting on: 1 03/23/2024 05:26 PM EST
[2025-01-21 14:12] VITALS: BP 134/68; PULSE 76; O2SAT 98; BMI 27.2
--- NOTE | 2025-01-21 14:12 | MHC.PC.OV ---
Vital Signs 01/21/25 14:12 Height 5 ft 11 in Weight 195 lb BMI 27.2 BP 134/68 Blood Pressure Location Lt brachial Position Sitting Pulse 76 Pulse Source Pulse Oximeter Pulse Oximetry (%) 98 Oxygen Delivery Method Room Air Intake Visit Reasons: DM Allergies oxycodone (OXYCODONE) Allergy (Intermediate, Verified 01/21/25 14:12) ITCHING Medication List - Last Reconciled 01/21/25 by Dea Simpson, atorvastatin 40 mg PO BEDTIME blood sugar diagnostic (FreeStyle Lite Strips) As directed check the BS QD blood-glucose meter (FreeStyle Lite Meter kit) As directed cholecalciferol (vitamin D3) 50 mcg PO DAILY citalopram 20 mg PO DAILY cyanocobalamin (vitamin B-12) 1,000 mcg IM Q4W 90 days [Diabetic shoes As directed] diclofenac sodium 1% (Voltaren Arthritis Pain) 2 grams topical QID diclofenac sodium 75 mg PO BID esomeprazole magnesium (Nexium) 40 mg PO DAILY flash glucose scanning reader (Leapset Mj 14 Day Bryan) As directed flash glucose sensor (Construction Software Technologies[employer] Mj 14 Day Sensor kit) As directed furosemide 20 mg PO once aweek saturday; 90 days lancets ([employer]yle Lancets) As directed check BS QD levothyroxine 100 mcg PO DAILY 90 days lidocaine 5% 1 patch topical DAILY PRN lisinopril 40 mg PO DAILY 90 days magnesium oxide 400 mg PO BEDTIME metformin 1,000 mg PO BID 90 days metoprolol succinate ER 50 mg PO DAILY 90 days multivitamin 1 tab PO DAILY pioglitazone 30 mg PO DAILY syringe with needle (BD Luer-Myron Syringe) As directed tirzepatide 7.5 mg (0.5 mL) subcut QWEEK triamcinolone acetonide 0.5% 1 appl topical BID Tobacco use date assessed: 03/27/24 Fall risk assessment: 1 Fall in past year Last assessed Fall Risk: 01/21/25 Dental Screening Dental Screen Date: 03/27/24 [facility] Medical History Dental root implant present Family history of cerebral aneurysm HTN (hypertension) History of alcohol abuse Basal cell carcinoma (BCC) History of depression On beta zoe at home Hx of sigmoidoscopy Shortness of breath Colon cancer screening Vitamin B1 deficiency Hypercholesterolemia Type 2 diabetes mellitus with hyperglycemia Chronic anemia Hypothyroidism Type 2 diabetes mellitus with diabetic polyneuropathy Essential hypertension Surgical History History of esophagogastroduodenoscopy (EGD) Status post right foot surgery Hx of colonoscopy Lipoma of right axilla Hx of tonsillectomy Hx of Achilles tendon repair Hx of carpal tunnel repair History of total right knee replacement H/O repair of rotator cuff Family History Father Throat cancer Diabetes Bladder cancer Lung cancer Mother No problems noted. 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 1. Little interest or pleasure in doing things: not at all 2. Feeling down, depressed, or hopeless: not at all 3. Trouble falling or staying asleep, or sleeping too much: not at all 4. Feeling tired or having little energy: more than half the days 5. Poor appetite or overeating: not at all 6. Feeling bad about yourself - or that you are a failure or have let yourself or your family down: not at all 7. Trouble concentrating on things, such as reading the newspaper or watching television: not at all 8. Moving or speaking so slowly that other people could have noticed. Or the opposite - being so fidgety or restless that you have been moving around a lot more than usual: not at all 9. Thoughts that you would be better off or of hurting yourself in some way: not at all Total score: 2 Depression Screening Interpretation: Positive Depression Screening Done: Yes Source: Developed by Drs. Ottoniel Solis, Michelle Evangelista, Rubén Fritz and colleagues, with an educational nina from [employer]. Thrive Questionnaire Date Thrive assessed: 03/27/24 I am a: Patient What is your living situation today?: I have a steady place to live Within the past 12 months, did the food you bought not last and you didn't have the money to get more?: Never true Within the past 12 months, did you worry whether your food would run out before you got money to buy more?: Never true Do you have trouble paying for medicines?: No Do you have trouble getting transportation to medical appointments?: No Do you have trouble paying your heating and electricity bill?: I choose not to answer this question Do you have trouble taking care of your child, family member or friend?: No Do you have trouble with day-to-day activities such as bathing, preparing meals, shopping, managing finances, etc.?: No Are you currently unemployed and looking for a job?: No Are you interested in more education?: No Please select the resources that you would like help with: None Currently or been in a relationship where the following occur: No concerns reported THRIVE Score: 0 AUDIT C Alcohol Use Questionnaire (AUDIT-C) 1. How often do you have a drink containing alcohol?: Never 3. How often do you have six or more drinks on one occasion?: Never Total Score: 0 JOSE JUAN-7 AMB Questionnaire JOSE JUAN-7 Date JOSE JUAN - 7 assessed: 03/27/24 Feeling nervous, anxious, or on edge: 0 = Not at all Not being able to stop or control worryin = Several days Worrying too much about different things: 1 = Several days Trouble relaxin = Not at all Being so restless that it is hard to sit still: 0 = Not at all Becoming easily annoyed or irritable: 0 = Not at all Feeling afraid as if something awful might happen: 0 = Not at all Total JOSE JUAN-7 score (0-4 normal; 5-9 mild; 10-14 moderate; 15-21 severe): 2 Source: Developed by Michelle Alcantar Kurt Kroenke and colleagues, with an educational nina from [employer]. Physical exam (Primary Care) Vital Signs: Last Vital Signs Pulse 76 01/21/25 14:12 BP 134/68 01/21/25 14:12 Pulse Ox 98 01/21/25 14:12 Oxygen Delivery Method Room Air 01/21/25 14:12 BMI result Body Mass Index 27.2 Tobacco/Smoking Status: Tobacco use Status Tobacco use date assessed 03/27/24 01/21/25 14:20 Patient Tobacco Use Status Former Tobacco user 01/21/25 14:20 Tobacco use type Cigarette 01/21/25 14:20 e-Cigarette/Vaping Use Never Used 01/21/25 14:20 PHQ-9: PHQ-9 Score PHQ-9: Total score 2 01/21/25 14:33 Depression Screening Interpretation: Positive Thrive Assessment: Date of Thrive Assessment Date Thrive assessed 03/27/24 01/21/25 14:20 Currently or been in a relationship where the following occur: No concerns reported Const General: alert; No acute distress Eyes Conjunctivae: conjunctivae normal Resp Auscultation: clear to auscultation bilaterally Cardio Rate: regular rate Rhythm: regular rhythm GI Inspection: Yes normal to inspection Extrem General: Yes normal to inspection and No edema Coding Level of Care Code Est Pt Level 4 (11586) Complex EM visit Add On G2211 Diagnoses Essential hypertension I10 Hypercholesterolemia E78.00 Type 2 diabetes mellitus with diabetic polyneuropathy, without long-term current use of insulin E11.42 Diabetes 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 driver insulin use: without intermodal owner operator truck driver use Acquired hypothyroidism E03.9 Hypothyroidism type: acquired Gastroesophageal reflux disease, unspecified whether esophagitis present K21.9 Esophagitis presence: esophagitis presence not specified Iron deficiency anemia, unspecified iron deficiency anemia type D50.9 Anemia type: iron deficiency Iron deficiency anemia type: unspecified iron deficiency Generalized anxiety disorder F41.1 Insomnia G47.00 Assessment & Plan Assessment & Plan (1) Essential hypertension: Code(s): I10 - Essential (primary) hypertension Category: Medical Plan: Continue with blood pressure medication. Decrease salt intake and exercise on lisinopril at 40 mg once a day metoprolol 50 mg once a day (2) Hypercholesterolemia: Code(s): E78.00 - Pure hypercholesterolemia, unspecified Category: Medical Plan: Avoid fried foods, chicken skin, eggs, butter margarine, pastries and meat. 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 Hemoglobin A1c goal of less than 7.0. November 2024 last done patient is on metformin a 1000 mg twice a day pioglitazone 30 mg once a day and tirzepatide (4) Hypothyroidism: Code(s): E03.9 - Hypothyroidism, unspecified Category: Medical Qualifiers: Hypothyroidism type: acquired Qualified Code(s): E03.9 - Hypothyroidism, unspecified Plan: noted TSH to be low (5) Gastroesophageal reflux disease: Code(s): K21.9 - Gastro-esophageal reflux disease without esophagitis Category: Medical Qualifiers: Esophagitis presence: esophagitis presence not specified Qualified Code(s): K21.9 - Gastro-esophageal reflux disease without esophagitis Plan: Avoid the foods that causes that usually spicy foods, tomato products, juices, coffee, soda and foods that your sensitive to. After eating do not lie down, allow 3-4 hours before in lie down. And keep the head of bed above 30 degrees to avoid the acid from going up. (6) Anemia: Code(s): D64.9 - Anemia, unspecified Category: Medical Qualifiers: Anemia type: iron deficiency Iron deficiency anemia type: unspecified iron deficiency Qualified Code(s): D50.9 - Iron deficiency anemia, unspecified Plan: Will continue to monitor blood count patient does follow-up with Hematology-Oncology (7) Generalized anxiety disorder: Comment: Declined referral for counseling Code(s): F41.1 - Generalized anxiety disorder Category: Medical Plan: continue with present medication (8) Insomnia: Code(s): G47.00 - Insomnia, unspecified Category: Medical Plan History of Present Illness The patient is a 74-year-old male presenting for a follow-up visit. His past medical history is significant for diabetes mellitus, hypercholesterolemia, hypothyroidism, generalized anxiety disorder, GERD, lumbar degenerative disc disease, and tubular adenoma of the colon, with his last colonoscopy in 2024. The patient was seen by orthopedics on December 24, 2024, for left shoulder pain, which is suspicious for a long head of biceps rupture. He was recommended rest, ice, and activity modification, with no formal treatment required, and an MRI will be considered if his symptoms do not improve. He follows with hematology for chronic normocytic anemia, which was noted on December 24, and receives monthly B12 and iron supplementation. He was also seen by ophthalmology in August, which showed non-significant nuclear cataracts and no evidence of retinopathy. His last annual wellness visit was on November 25. Laboratory work from December 24 revealed an elevated potassium of 5.5, a blood sugar of 148, and stable renal function. His last hemoglobin A1c in November was 6.8, and his TSH was noted to be low. Health Maintenance - Last colonoscopy was in 2024, which found a tubular adenoma. - Last seen by ophthalmology in August; screening showed no retinopathy but did identify non-significant nuclear cataracts. - Last annual well visit was on November 25. - Laboratory monitoring includes hemoglobin A1c, cholesterol panel, renal function, potassium, thyroid stimulating hormone (TSH), vitamin B12, folic acid, and prostate-specific antigen (PSA). Social History Review of Systems Physical Exam Results - Labs (December 24): Showed chronic anemia, potassium elevated to 5.5, and blood sugar 148. - Labs (Date not specified): Renal function is stable at 1.06; liver numbers are good; TSH was noted to be low. - Ophthalmology exam (August): No retinopathy; non-significant nuclear cataracts present. - Labs (November 2024): Hemoglobin A1c was 6.8. Plan Patient was informed and verbally consented to the use of an ambient scribe for clinic note documentation during this visit. 1. Hypertension Continue lisinopril 40 mg once a day and metoprolol 50 mg once a day. 2. Hypercholesterolemia The treatment goal is an LDL of less than 100 and triglycerides of less than 150. The patient will continue atorvastatin 40 mg once a day. 3. Diabetes Mellitus The goal is a hemoglobin A1c of less than 7.0%. The patient is to continue metformin 1000 mg twice a day, pioglitazone 30 mg once a day, and tirzepatide. 4. Hypothyroidism The patient's TSH was noted to be low on his current thyroid medication dose of 100 mcg once daily. 5. Gastroesophageal Reflux Disease (Gerd) The current reflux plan will be continued. 6. Normocytic Anemia Will continue to monitor blood counts and continue present medications. The patient will continue to follow up with hematology oncology. 7. Left Shoulder Pain Conservative management with rest, ice, and activity modification is recommended. An MRI will be considered if there is no improvement. Discussion Notes Patient Instructions - Continue taking your current medications for blood pressure, cholesterol, diabetes, and acid reflux as prescribed. - Continue your thyroid medication. A recent lab test showed your thyroid level was low, and your doctor will consider if a dose change is needed. - For your left shoulder, rest it, use ice, and avoid activities that cause pain. If it does not get better, an MRI will be ordered. - Continue to see your hematology (blood) specialist for your anemia. Orders: Orders Comprehensive Met. Panel 2 Months D50.9 - Iron deficiency anemia, unspecified Complete Blood Count Auto Diff 2 Months D50.9 - Iron deficiency anemia, unspecified Thyroid Stimulating Hormone 2 Months D50.9 - Iron deficiency anemia, unspecified Lipid Panel 2 Months D50.9 - Iron deficiency anemia, unspecified, E78.00 - Pure hypercholesterolemia, unspecified Ferritin 2 Months D50.9 - Iron deficiency anemia, unspecified IRON PROFILE 2 Months D50.9 - Iron deficiency anemia, unspecified Free T4 (Free Thyroxine) 2 Months D50.9 - Iron deficiency anemia, unspecified Hemoglobin A1c 2 Months D50.9 - Iron deficiency anemia, unspecified Reticulocyte Count 2 Months D50.9 - Iron deficiency anemia, unspecified Medications: New doxepin (Silenor) 6 mg PO BEDTIME PRN 30 tabs 0RF sleep G47.00 - Insomnia, unspecified Changed From levothyroxine 100 mcg (0.8 x 125 mcg) PO DAILY 90 days 72 tabs 3RF E03.9 - Hypothyroidism, unspecified To levothyroxine 100 mcg PO DAILY 90 tabs 3RF 90 days E03.9 - Hypothyroidism, unspecified Refilled pioglitazone 30 mg PO DAILY 90 tabs 2RF Z12.11 - Encounter for screening for malignant neoplasm of colon magnesium oxide 400 mg PO BEDTIME 90 caps 3RF K59.04 - Chronic idiopathic constipation furosemide 20 mg PO once aweek saturday; 13 tabs 3RF 90 days I10 - Essential (primary) hypertension diclofenac sodium 75 mg PO BID 180 tabs 1RF Z12.11 - Encounter for screening for malignant neoplasm of colon
--- OUTSIDE RECORDS SUMMARY | 2025-01-21 17:27 | XMS_ITS | Encounter Summary ---
Author Organization [facility] Address [address] [address] Phone Care Team Providers Care Chief Hospital Administrator Name Role Phone Mohsen Mcintosh DO Primary Care Provider [phone] Dea Simpson MD Primary Care Provider [phone] Encounter Details Date Type Department Care Team (Late st Contact Info) Description 10/21/2017 Procedure Pass [facility] [address] [place] [id number] Social History Tobacco Use Types Packs/Day Years [...] st Contact Info) Description 12/25/2023 Procedure Pass [facility], [address] [place] [address] 12/24/2025 7:15 AM EDT Appointment [facility], [address] [place] [address] Lit Doan PA-C [address] [place] [address] [email or web address] documented as of this encounter Visit Diagnoses Not on filedocumented in this encounter Care Teams Chief Hospital Administrator Relationship Specialty Start Date End Date Mohsen Mcintosh DO [address] [place] [address] PCP - General Internal Medicine 08/12/15 12/10/19 Dea Simpson MD [address] [place] [phone] PCP - General Internal Medicine 12/11/19 documented as of this encounter Additional Source Comments The information contained in this document represents components of the legal health record. It is not the complete legal health record.[facility]
--- OUTSIDE RECORDS SUMMARY | 2025-01-21 17:27 | XMS_ITS | Encounter Summary ---
Author Organization [facility] Address [address] [place] [address] Phone Care Team Providers Care Manufacturers Representative Name Role Phone Mohsen Mcintosh DO Primary Care Provider [phone] Dea Simpson MD Primary Care Provider [phone] Encounter Details Date Type Department Care Team (Late st Contact Info) Description 10/29/2019 Procedure Pass [facility] MR Imaging, [address] [place] [address] Social History Tobacco Use Types Packs/Day Years [...] st Contact Info) Description 12/25/2023 Procedure Pass [facility] MR Imaging, [address] [place] [address] 12/24/2025 7:15 AM EDT Appointment [facility] MR Imaging, [address] [place] [address] Lit Doan PA-C [address] [place] [phone] [email or web address] documented as of this encounter Visit Diagnoses Not on filedocumented in this encounter Care Teams Manufacturers Representative Relationship Specialty Start Date End Date Mohsen Mcintosh DO [address] [place] [address] PCP - General Internal Medicine 08/12/15 12/10/19 Dea Simpson MD [address] [place] [phone] PCP - General Internal Medicine 12/11/19 documented as of this encounter Additional Source Comments The information contained in this document represents components of the legal health record. It is not the complete legal health record.[facility]
--- OUTSIDE RECORDS SUMMARY | 2025-01-21 17:27 | XMS_ITS | Patient Health Record ---
Author [facility] Address [address] [place] [phone] Care Team Providers Care Dairy Farmworker Name Role Phone Cy Pereira Jr [phone] Reason For Referral No Information Plan Of Treatment No Information
--- OUTSIDE RECORDS SUMMARY | 2025-01-21 17:27 | XMS_ITS | Encounter Summary ---
Author Organization [facility] Address [address] [place] [address] Phone Care Team Providers Care Cloth Weaver Name Role Phone Dea Simpson MD Primary Care Provider [phone] Encounter Details Date Type Department Care Team (Late st Contact Info) Description 11/28/2021 Procedure Pass [facility] Clinic Director [place] [address] [place] [address] Social History Tobacco Use Types Packs/Day Years [...] st Contact Info) Description 12/25/2023 Procedure Pass [facility] MR Imaging, [address] [place] [address] 12/24/2025 7:15 AM EDT Appointment [facility] MR Imaging, [address] [place] [address] Lit Doan PA-C [address] [place] [phone] [email or web address] documented as of this encounter Visit Diagnoses Not on filedocumented in this encounter Care Teams Cloth Weaver Relationship Specialty Start Date End Date Dea Simpson MD [address] [place] [address] PCP - General Internal Medicine 12/11/19 documented as of this encounter Additional Source Comments The information contained in this document represents components of the legal health record. It is not the complete legal health record.[facility]
--- OUTSIDE RECORDS SUMMARY | 2025-01-21 17:27 | XMS_ITS | Patient Health Record ---
Author Organization [facility] Address [address] [place] [address] Care Team Providers Care Machine Heel Seat Laster Name Role Phone Dea Simpson Primary Care Provider Barbara Crawford Unavailable [phone] Allergies Allergen (clinical drug ingredient) Drug/Non Drug [...] Problem Acquired hammer toe of right foot ([id number] ) Other hammer toe(s) (acquired), right foot (M20.41) Active confirmed Problem Acquired hammer toe of left foot ([id number] ) Other hammer toe(s) (acquired), left foot (M20.42) Active confirmed Problem Polyneuropathy due to type 2 diabetes mellitus (735244637) Type 2 diabetes mellitus with diabetic polyneuropathy (E11.42) Active confirmed Vital Signs Blood pressure diastolic 65 mm Hg 07/20/2024 Height 9ao97tm in 07/20/2024 Blood pressure systolic 128 mm Hg 07/20/2024 Weight 180 lbs 07/20/2024 BMI 25.1 kg/m2 07/20/2024 Procedures Procedure Date Ordered Date Performed Result Body Sit e 46402-[id number] NAIL, 6 OR MORE 03/16/2024 N/A 20603-OCNQ SKIN LESIONS, 2 TO 4 03/16/2024 N/A 14062-[id number] NAIL, 6 OR MORE 07/20/2024 N/A 92229-SQTT SKIN LESIONS, 2 TO 4 07/20/2024 N/A Encounters Encounter Location Date Provider Diagnosis [facility] [address] 03/16/2024 Barbara Maldonado Type 2 diabetes mellitus with diabetic polyneuropathy E11.42 and Tinea unguium B35.[address] [address] 07/20/2024 Barbara Maldonado Other hammer toe(s) (acquired), [...] X ray : Foot, right 3V 06/15/2020 50254-LIHJCTW NAIL, 6 OR MORE 07/20/2024 76369-FCJHYFL NAIL, 6 OR MORE 03/16/2024 51682-XTVE SKIN LESIONS, 2 TO 4 03/16/19 25 39228-KXZU SKIN LESIONS, 2 TO 4 03/16/19 21 26925-SROZ SKIN LESIONS, 2 TO 4 06/16/19 21 70758-LGJK SKIN LESIONS, 2 TO 4 09/29/19 21 58417-ZOMI SKIN LESIONS, 2 TO 4 01/05/20 21 60721-TJFQ SKIN LESIONS, 2 TO 4 03/30/19 22 90775-PTBP SKIN LESIONS, 2 TO 4 07/21/19 48992- Removal of Foreign Body, Subcut 0 11/19/2022 Insurance Providers Payer Name Payer Address Payer Phone Subscriber Number Group Number Insured Name Patient Relationship to Insured Coverage Start Date Coverage End Date Medicare National Govt [employer] [address] [place] [address] [id number] Maximus Vu Self - patient is the insured [employer]) [address] [place] [address] [phone] [id number] Maximus Vu Self - patient is the insured Medical (General) History Medical History History ICD Code Back,Hip,and Knee pain Depression High blood pressure thyroid Joint implants/screws type II diabetes covid-19 Anemia Hypothyroidism Hyperlipidemia Pain Surgical History Surgery Date(Month/Year) achilles tendon repair knee replacement shoulder surgery carpal tunnel surgery Flex ten R 03/30/21
--- OUTSIDE RECORDS SUMMARY | 2025-01-21 17:27 | XMS_ITS | Encounter Summary ---
Author Organization [facility] Address [address] [place] [id number] Phone Care Team Providers Care Quality Analyst Name Role Phone Dea Simpson MD Primary Care Provider [phone] Encounter Details Date Type Department Care Team (Late st Contact Info) Description 12/20/2021 Procedure Pass [facility], [address] [place] [address] Social History Tobacco Use Types Packs/Day Years [...] st Contact Info) Description 12/25/2023 Procedure Pass [facility], [address] [place] [address] 12/24/2025 7:15 AM EDT Appointment [facility], [address] [place] [address] Lit Doan PA-C [address] [place] [phone] [email or web address] documented as of this encounter Visit Diagnoses Not on filedocumented in this encounter Care Teams Quality Analyst Relationship Specialty Start Date End Date Dea Simpson MD [address] [place] [address] Drive [address] [place] [phone] PCP - General Internal Medicine 12/11/19 documented as of this encounter Additional Source Comments The information contained in this document represents components of the legal health record. It is not the complete legal health record.[facility]
--- OUTSIDE RECORDS SUMMARY | 2025-01-21 17:27 | XMS_ITS | Encounter Summary ---
Author Organization [facility] Address [address] [place] [address] Phone Care Team Providers Care Ice Cream Scooper Name Role Phone Mohsen Mcintosh DO Primary Care Provider [phone] Dea Simpson MD Primary Care Provider [phone] Encounter Details Date Type Department Care Team (Late st Contact Info) Description 09/18/2016 Procedure Pass [facility], [address] [place] [address] Social History Tobacco Use Types Packs/Day Years [...] st Contact Info) Description 12/25/2023 Procedure Pass [facility], [address] [place] [address] 12/24/2025 7:15 AM EDT Appointment [facility], [address] [place] [address] Lit Doan PA-C [address] [place] [phone] [email or web address] documented as of this encounter Visit Diagnoses Not on filedocumented in this encounter Care Teams Ice Cream Scooper Relationship Specialty Start Date End Date Snow, Mohsen FrancoisDO [address] [place] [address] PCP - General Internal Medicine 08/12/15 12/10/19 Dea Simpson MD [address] [place] [phone] PCP - General Internal Medicine 12/11/19 documented as of this encounter Additional Source Comments The information contained in this document represents components of the legal health record. It is not the complete legal health record.[facility]
--- OUTSIDE RECORDS SUMMARY | 2025-01-21 17:27 | XMS_ITS | Clinical Summary ---
Author Organization [facility] Address [address] [address] Phone Care Team Providers Care Roll Slicing Machine Tender Name Role Phone Dea Simpson MD Primary Care Provider [phone] Allergies Active Allergy Reactions Criticality Noted Date [...] Contact Info) Description 12/25/[address] [facility] [place] [place] [address] 12/24/2025 7:[address] [facility] [place] [place] [address] Lit Doan PA-C [address] [place] [id number] [email or web address] Health Maintenance Due Date Last Done Comments [...] on patient's age to complete this topic IPV VACCINES Aged Out No longer eligi ble [...] CRE POC 0.8 0.5 - 1.2 mg/dL [facility] CT & MRI SUITE EGFR POC 90 >59 mL/min/1.[address] [facility] CT & MRI SUITE Comment:Estimated glomerular filtration rate calculated using the CKD-EPI equation. 12/11/2019 9:17 AM EDT 12/11/2019 9:19 AM EDT Abner Hernandez MD POINT OF CARE TEST ORDERABLES Final Result [facility] CT & MRI [address] [place] [address] from Last 3 Months or Most Recently Relevant to Health Maintenance Insurance MEDICARE PART A & B [facility] [employer] MEDICARE SUPPLEMENT MEDICARE PART A & B Member Subscriber Plan / Payer (Ef fective 2013-Present) Name:Maximus Vu Member ID:[id number] Relation to Subscriber:Self Name:Maximus Vu Subscriber ID:[id number] Payer ID:[id number] Group ID:Not on file Type:Medicare Address: [employer] [address] [place] [address] MEDICARE SUPPLEMENT MEDICARE PART A & B Member Subscriber Plan / Payer ( fective 2013-Present) Name:Maximus Vu Member ID:[id number] Relation to Subscriber:Self Name:Maximus Vu Subscriber ID:[id number] Payer ID:[id number] Group ID:Not on file Type:Medicare Address: [employer] [address] [place] [address] [employer] EXTENSION MEDICARE SUPPLEMENT MEDICARE PART A & B Member Subscriber Plan / Payer (Ef fective 2013-Present) Name:Maximus Vu Member ID:[id number] Relation to Subscriber:Self Name:Maximus Vu Subscriber ID:[id number] Payer ID:[id number] Group ID:Not on file Type:Medicare Address: [employer] [address] [place] [address] [facility] [employer] MEDICARE SUPPLEMENT MEDICARE PART A & B Member Subscriber Plan / Payer (Ef fective 2013-Present) Name:KimberVito muellermond Member ID:[id number] Relation to Subscriber:Self Name:KimberMaximus mueller Subscriber ID:[id number] Payer ID:[id number] Group ID:Not on file Type:Medicare Address: [employer] [address] [place] [address] [facility] [employer] MEDICARE SUPPLEMENT MEDICARE PART A & B Member Subscriber Plan / Payer ( fective 2013-Present) Name:Maximus Vu Member ID:[id number] Relation to Subscriber:Self Name:Maximus Vu Subscriber ID:[id number] Payer ID:[id number] Group ID:Not on file Type:Medicare Address: [employer] [address] [place] [address] [facility] [employer] MEDICARE SUPPLEMENT MEDICARE PART A & B Member Subscriber Plan / Payer ( fective 2013-) Name:Maximus Vu Member ID:[id number] Relation to Subscriber:Self Name:Maximus Vu Subscriber ID:[id number] Payer ID:[id number] Group ID:Not on file Type:Medicare Address: [employer] [address] [place] [address] [employer] EXTENSION MEDICARE SUPPLEMENT MEDICARE PART A & B Member Subscriber Plan / Payer ( fective 2013-) Name:Maximus Vu Member ID:[id number] Relation to Subscriber:Self Name:Maximus Vu Subscriber ID:[id number] Payer ID:[id number] Group ID:Not on file Type:Medicare Address: [employer] [address] [place] [address] [employer] EXTENSION MEDICARE SUPPLEMENT MEDICARE PART A & B Member Subscriber Plan / Payer (Ef fective 2013-Present) Name:Maximus Vu Member ID:[id number] Relation to Subscriber:Self Name:Maximus Vu Subscriber ID:[id number] Payer ID:[id number] Group ID:Not on file Type:Medicare Address: [employer] [address] [place] [address] [facility] [employer] MEDICARE SUPPLEMENT Care Teams Roll Slicing Machine Tender Relationship Specialty Start Date End Date Dea Simpson MD [address] [place] [address] PCP - General Internal Medicine 12/11/19 Additional Source Comments The information contained in this document represents components of the legal health record. It is not the complete legal health record.[facility]
== END 2025-01-21 14:56 | disposition home or self-care (01) ==
LOC: HO.HMCH 14:05
PROVIDERS: PCP Internal Medicine; Visit Provider Internal Medicine
DX: I10 Essential (primary) hypertension (principal); E78.00 Pure hypercholesterolemia, unspecified; E11.42 Type 2 diabetes mellitus with diabetic polyneuropathy; E03.9 Hypothyroidism, unspecified; K21.9 Gastro-esophageal reflux disease without esophagitis; D50.9 Iron deficiency anemia, unspecified; F41.1 Generalized anxiety disorder; G47.00 Insomnia, unspecified

== ENCOUNTER → 2025-01-21 14:04 | Outpatient (BNVA) | payer MEDICARE, OTHER, SELFPAY | PROVIDERS: PCP Internal Medicine; Visit Provider Internal Medicine | DX: E11.42 Type 2 diabetes mellitus with diabetic polyneuropathy (principal); E78.00 Pure hypercholesterolemia, unspecified; I10 Essential (primary) hypertension; E03.9 Hypothyroidism, unspecified; K21.9 Gastro-esophageal reflux disease without esophagitis; D50.9 Iron deficiency anemia, unspecified; F41.1 Generalized anxiety disorder | CPT/HCPCS: 99212 ==